=== PATIENT | male | born 1985 | race Caucasian/White ===

== ENCOUNTER 2022-03-09 11:51 | Outpatient (REF) | payer MEDICARE, MEDICAID, SELFPAY ==
[2022-03-11 05:12] LABS: Lyme Abs Screen <0.90 index
== END 2022-03-09 11:52 | disposition home or self-care (01) ==
LOC: HO.HMGCLDS 11:51
PROVIDERS: Visit Provider Nurse Practitioner Family
DX: Q87.2 Congenital malformation syndromes predominantly involving limbs (principal); R42 Dizziness and giddiness
CPT/HCPCS: 36415; 86617; 86618

== ENCOUNTER 2022-03-30 09:45 | Outpatient (RCR) | payer MEDICARE, MEDICAID, SELFPAY ==
--- NOTE | 2022-03-30 13:35 | MHC.PT.EP ---
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 Pt is deemed an appropriate candidate to receive skilled PT in order to address his physical limitations to improve his functional ability. Frequency and Duration: The patient will be seen 2 x / wk x 5 wks. Short Term Goals: initiate HEP. Improve baseline pain to < 5/10; initial: 8/10. Intermediate Goals: I with home program. Pt will report at most 1/4 disturbed night's sleep d/t LBP; initial: Pain prevents him from sleeping at all. Pt will report able to walk required distances though it increases his pain; initial: pain prevents from walking even short distances. Treatment Plan: Modalities to reduce pain, spasms and effusion. Manual therapy to restore motion and function. Therapeutic exercise to improve strength and flexibility. Neuromuscular re-education for posture and balance. Therapeutic activities to return to functional activities of daily living. Electronically signed by: Abhijeet Tenorio PT Please sign and return to therapist. Thank you for your referral.
--- NOTE | 2022-05-02 15:39 | MHC.PT.DC ---
[facility] [place] Office [place] Office [place] Office [address] Kimmy Patel 140 [facility] [phone] F: [phone] F: [phone] F: [phone] F: [phone] Physical Therapy Discharge Report Diagnosis: Lumbago with sciatica Date of Surgery: Date of Evaluation: 03/30/22 Date of Discharge: 05/02/22 Treatments to Date: 1 Cancellations to Date: No Shows to Date: 2 Discharge Status: Visit Non-compliance Discharge Summary: Electronically signed by: Abhijeet Tenorio PT. Please sign and return to therapist. Thank you for your referral.
== END 2022-05-02 15:39 | disposition home or self-care (01) ==
LOC: HO.PTCHIC 09:45
PROVIDERS: PCP Nurse Practitioner Family; Visit Provider Nurse Practitioner Family
DX: M54.40 Lumbago with sciatica, unspecified side (principal); R42 Dizziness and giddiness
CPT/HCPCS: 97110; 97140; 97162

== ENCOUNTER 2022-10-10 14:41 | Outpatient (REF) | payer MEDICARE, MEDICAID, SELFPAY ==
--- NOTE | ~2022-10-10 | XR_ITS ---
EXAMINATION: XR cervical spine 2V CLINICAL INFORMATION: Polyneuropathy COMPARISON: None TECHNIQUE: 4 views of the cervical spine were obtained. FINDINGS: The cervical spine is visualized to the level of C6-C7 on the lateral view. 2 mm of retrolisthesis of C3 on C4. Dextroconvex scoliosis of the cervical spine. Vertebral body heights are maintained. Mild degenerative disc disease at C4-C5 and C5-C6, manifested by loss of disc space height and facet arthropathy.. Lateral masses of C1 are well aligned on C2. Visualized portion of the dens is intact. No prevertebral soft tissue swelling. XR/XR cervical spine 2V IMPRESSION: * Mild spondylosis of the cervical spine, as above detailed. Spondylolisthesis, as above detailed, with dextroconvex curvature of the cervical spine.
== END 2022-10-10 14:42 | disposition home or self-care (01) ==
LOC: HO.HMGCX 14:41
PROVIDERS: PCP Nurse Practitioner Family; Visit Provider Nurse Practitioner Family
DX: G62.9 Polyneuropathy, unspecified (principal)
CPT/HCPCS: 72040

== ENCOUNTER 2022-10-22 12:57 | Emergency (ER) | payer MEDICARE, MEDICAID, SELFPAY ==
--- NOTE | ~2022-10-22 | CT_ITS ---
EXAMINATION: CT CHEST, ABDOMEN AND PELVIS WITHOUT CONTRAST CLINICAL INFORMATION: Severe back pain COMPARISON: None. TECHNIQUE: Multidetector volumetric CT imaging of the chest, abdomen and pelvis was obtained without intravenous contrast. . Coronal and sagittal reformatted images are performed at CT scanner [This CT examination was performed using dose optimization techniques as appropriate, variously including the following: *Automated exposure control *Adjustment of mA and/or kV according to patient size (this includes techniques or standardized protocols for targeted exams where dose is matched to indication/reason for exam; i.e. extremities or head) *Use of iterative reconstruction technique] DLP: 519 mGy-cm. FINDINGS: CT CHEST: Lungs: Subpleural blebs at the medial left lung base. Small linear subpleural scarring at the superior segment of the left lower lobe. No acute airspace opacity. Central bronchial airways are open. No interstitial reticular opacity. Mediastinum: There is no mediastinal mass or significant lymphadenopathy. Heart size is normal. No pericardial effusion. Pleura: There is no pleural effusion. No pleural mass or thickening. Axilla: No lymphadenopathy. CT ABDOMEN AND PELVIS: Liver, Gallbladder and Biliary Tree: The posterior right lobe of liver, segment 7 there are several well-defined hypodense lesions. These have density measurement just above simple fluid, 12 Hounsfield units. Likely hepatic cysts. Largest measuring about 1.5 cm. No suspicious liver lesion. No intrahepatic bile duct dilatation. There is a 0.8 cm calcified stone in the gallbladder. No gallbladder wall thickening or pericholecystic fluid. No calcified stone seen in the bile ducts. Pancreas: No acute change of the pancreas. No mass. No pancreatic duct dilatation. Spleen: Spleen normal in size and contour. No focal lesion. Adrenal Glands: Adrenal glands are normal in size. No focal mass. Kidneys and Ureters: There is a cluster of 3 small calcified stones in the mid lower pole of the left kidney. Largest stone measuring 3 mm. There is no stone in the right kidney. There is no ureteral stone or hydronephrosis. Bladder: Unremarkable. Gastrointestinal Tract: There is no acute abnormality. There is no bowel wall thickening /edema. There is no bowel obstruction. There is a moderate volume of stool in the colon. Multiple punctate radiopacities mixed with stool in the lower pelvis and rectum.. This is consistent with a ingested material. There is hyperdense material scattered in the stomach and proximal small bowel as well. The appendix is nonvisualized . The small bowel loops are unremarkable. The stomach is normal. There is no hiatal hernia. Mesentery: No focal inflammation. No free fluid. No free air. Vaginal calcification low in the right pelvis adjacent to the rectum measuring 3 cm AP. Chronic calcification. There are numerous calcified phleboliths in lower pelvis. Abdominal Wall: No significant hernia is appreciated. Lymph Nodes: Normal. Vascular: Unremarkable. Pelvic Viscera: Unremarkable. 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 There is a left-sided C7 cervical rib. Congenital osseous deformity of the superior endplate of the T2. Fusion anomaly on the left posterior elements of T1. Rudimentary left rib T12. Absent right T12 rib. 4 nonrib-bearing lumbar vertebrae. Sacralization of the L5 vertebrae. Asymmetric fusion anomaly at the symphysis pubis. 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 CT/CT abdomen pelvis wo IV con IMPRESSION: CT CHEST: No acute abnormality. CT ABDOMEN PELVIS: 1. No acute abnormality. 2. Cholelithiasis. No acute change of gallbladder wall or bile duct dilatation. 3. Small nonobstructive stones in the left kidney.
[2022-10-22 13:28] VITALS: BP 136/92; PULSE 79; RESP 18; TEMP 36.7; O2SAT 98; BMI 16.0
--- NOTE | 2022-10-22 13:30 | ED.GENADULT ---
HPI - General Adult General Chief complaint: General Medical <EUSEBIA Perry - Last Filed: 10/22/22 13:40> Stated complaint: body pain <EUSEBIA Perry - Last Filed: 10/22/22 13:40> Time Seen by Provider: 10/22/22 16:13 <EUSEBIA Perry - Last Filed: 10/22/22 13:40> Source: patient and RN notes reviewed <Lucien Keene - Last Filed: 10/22/22 17:13> Mode of arrival: ambulatory <Lucien Keene - Last Filed: 10/22/22 17:13> Limitations: no limitations <Lucien Keene - Last Filed: 10/22/22 17:13> History of Present Illness HPI narrative: 36-year-old male with past medical history significant for Klippel-Trenaunay syndrome, above the knee amputation, tobacco dependence, depression, vertigo, Senokot, depression presents for evaluation back pain. 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 Patient reports that he has been dealing with this since he was born and has had over 26 various surgeries to help correct the issue Patient 1st name is 5 years old he had a left [id number]-fwch amputation due to a traumatic injury of the knee He recently was treated for a new prosthesis which he feels caused more problems. Patient reports from last year he has had increased back pain in ?my whole body is shifted to the side. ? He is not sure why this is report is causing him discomfort. He follows with a prosthesis specialist in [place] but does not have any specialist for his genetic disease. The patient does not follow with orthopedics or chiropractor specialty <Lucien Keene - Last Filed: 10/22/22 17:13> Related Data Home medications: Home Medications Medication Instructions Recorded Confirmed folic acid 1 mg tablet 1 mg PO DAILY 03/07/22 10/10/22 multivitamin-ferrous 1 tab PO DAILY 05/29/22 10/10/22 fumarate-folic acid 18 mg-400 mcg tablet (Centrum Complete) Previous Rx's Medication Instructions Recorded omeprazole 20 mg capsule,delayed 20 mg PO DAILY #90 caps 05/29/22 release left above knee prosthesis #1 ea 06/11/22 gabapentin 100 mg capsule 100 mg PO BID 30 days #60 caps 10/10/22 oxycodone 5 mg tablet 5 mg PO TID PRN pain #14 tabs 10/22/22 <EUSEBIA Perry - Last Filed: 10/22/22 13:40> Allergies/adverse reactions: Allergies Allergy/AdvReac Type Severity Reaction Status Date / Time No Known Allergies Allergy Verified 10/22/22 13:38 <EUSEBIA Perry - Last Filed: 10/22/22 13:40> Review of Systems Constitutional: Constitutional: Reports as per HPI, Denies chills and Denies fatigue <Lucien Keene - Last Filed: 10/22/22 17:13> Cardiovascular: Cardiovascular: Denies chest pain and Denies dyspnea <Lucien Keene - Last Filed: 10/22/22 17:13> Respiratory: Respiratory: Denies cough and Denies dyspnea <Lucien Keene - Last Filed: 10/22/22 17:13> Gastrointestinal: Gastrointestinal: Denies abdominal pain, Denies constipation and Denies vomiting <Lucien Keene - Last Filed: 10/22/22 17:13> Genitourinary: Genitourinary: Denies difficulty urinating and Denies dysuria <Lucien Keene - Last Filed: 10/22/22 17:13> Musculoskeletal: Musculoskeletal: Reports abnormal gait, Reports back pain, Reports myalgias, Reports deformity, Reports arthralgias and Reports limited range of motion <Lucien Keene - Last Filed: 10/22/22 17:13> Neurologic: Reports abnormal gait <Lucien Keene - Last Filed: 10/22/22 17:13> Endocrine: Endocrine: Denies fatigue <Lucien Keene - Last Filed: 10/22/22 17:13> [facility] Past Medical History Medical History: Medical History Degenerative disc disease, cervical <EUSEBIA Perry - Last Filed: 10/22/22 13:40> Surgical History: Surgical History History of amputation below knee History of amputation of finger of left hand <EUSEBIA Perry - Last Filed: 10/22/22 13:40> Family History Family History: Family History Mother Cancer Family history of cancer Mental health disorder Asthma Father High blood pressure Paternal Grandfather Aneurysm Brother Migraine Vertigo <EUSEBIA Perry - Last Filed: 10/22/22 13:40> Social History Social History: Social History Housing: House Alcohol intake: former Patient Tobacco Use Status: Current everyday Tobacco user Tobacco use type: Cigar (Black A Mild) Cigarette Packs Per Day: 1 e-Cigarette/Vaping Use: Never Used Second Hand Smoke Exposure: No Substance Use Type: Marijuana Advance Directives: No Advance Directives Information Provided: No service: No Current occupational status: disabled Cognitive needs: No Hearing needs: No Vision needs: No <EUSEBIA Perry - Last Filed: 10/22/22 13:40> Physical Exam ED Vital Signs: Vital Signs - 24 hr 10/22/22 13:28 Temperature 98.0 F Pulse Rate 79 Respiratory Rate 18 Blood Pressure 136/92 H Pulse Oximetry 98 Oxygen Delivery Method Room Air BMI result Body Mass Index 16.0 <EUSEBIA Perry - Last Filed: 10/22/22 13:40> Vital Signs - 24 hr 10/22/22 13:28 Temperature 98.0 F Pulse Rate 79 Respiratory Rate 18 Blood Pressure 136/92 H Pulse Oximetry 98 Oxygen Delivery Method Room Air BMI result Body Mass Index 16.0 <Lucien Keene - Last Filed: 10/22/22 17:13> Const General: healthy appearing, comfortable, no acute distress, alert and awake <Lucien Keene - Last Filed: 10/22/22 17:13> Nutritional Appearance: well nourished <Lucien Keene - Last Filed: 10/22/22 17:13> Orientation/consciousness: patient oriented x3 <Lucien Keene - Last Filed: 10/22/22 17:13> Eyes Eyelids: Yes eyelids normal <Lucien Keene - Last Filed: 10/22/22 17:13> Conjunctivae: conjunctivae normal <Lucien Last Filed: 10/22/22 17:13> Sclerae: sclerae normal <Lucien Last Filed: 10/22/22 17:13> Corneas: corneas normal <Lucien Last Filed: 10/22/22 17:13> Pupils: Equal, round and reactive pupils present < Last Filed: 10/22/22 17:13> EOM: EOMs intact bilaterally < Last Filed: 10/22/22 17:13> Resp Effort & Inspection: normal respiratory effort, able to speak in complete sentences, no audible wheezes and not labored <Lucien Last Filed: 10/22/22 17:13> GI Palpation (GI): Soft to palpation, nontender, no guarding, no hernias, no masses and no pulsatile masses <Lucien Last Filed: 10/22/22 17:13> Back/Spine/Pelvis Thoracic/Lumbar Spine: No straight leg raise negative bilaterally, kyphosis, thoraco-lumbar ROM limited, Thoracic/lumbar scoliosis, thoracic spinal tenderness and No straight leg raise positive < Last Filed: 10/22/22 17:13> Pelvis: sciatic notch tenderness <Lucien Last Filed: 10/22/22 17:13> Skin General skin exam: no rashes or lesions noted and elasticity normal <Lucien Last Filed: 10/22/22 17:13> Lesions: no lesions < Last Filed: 10/22/22 17:13> Rashes: no rashes < Last Filed: 10/22/22 17:13> Neuro General: patient oriented x3 <Lucien Last Filed: 10/22/22 17:13> Cranial nerves: Yes Equal, round and reactive pupils present <Lucien O Last Filed: 10/22/22 17:13> Extrem General: No normal gait, Yes amputation noted (Left AKA and Left 2nd/3rd fingers) and Yes muscle atrophy <Lucien Keene - Last Filed: 10/22/22 17:13> Course Course Course Narrative: RME - 36 yo male with history of?Klippel Trenaunay syndrome, 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 He has chronic pain but the last months it has been getting worse. He feels like his organs on the left side of his body are being squished by his abnormal bony overgrowth. Will get CT scans and basic labs for further evaluation. <EUSEBIA Perry - Last Filed: 10/22/22 13:40> Medical Decision Making Medical Decision Making [facility] Narrative: This is a 36-year-old male past medical history is for a Congenital disorders KT complaining of pain mostly to his pelvis, back. I was not very familiar with hisdisorder, so I did some research and found that most patients with his disorder present with similar symptoms. 84% of patients have unequal lower extremity length per UpToDate. Is also likely exacerbated by the patient's left twjln-[id number]-locv amputation. His pelvis appears to be shifted to the side which is likely causing kyphoscoliosis. The patient had labs are reassuring without significant abnormalities. CT scan of his chest, abdomen and pelvis without acute findings. The patient will follow up with his primary doctor. We will refer the patient to orthopedics in case any additional treatment options for the patient. The patient may also benefit from seeing a chiropractor as an outpatient which was discussed with him he can follow-up with his primary doctor to try and set this up. <Lucien Keene - Last Filed: 10/22/22 17:13> Differential Diagnosis Differential Diagnoses: The differential diagnosis associated with the presentation includes (Klippel-Trenaunay syndrome, scoliosis, kyphosis, lumbar strain, sciatica) <Lucien Keene - Last Filed: 10/22/22 17:13> Klippel-Trenaunay syndrome <Lucien Keene - Last Filed: 10/22/22 17:13> Lab Data [facility] Lab Attestation statement: I reviewed the patient's lab results. <Lucien Keene - Last Filed: 10/22/22 17:13> Result Diagrams: 02/13/23 13:54 10/22/22 13:54 <EUSEBIA Perry - Last Filed: 10/22/22 13:40> Labs: Lab Results 10/22/22 10/22/22 Range/Units 13:54 13:54 WBC 6.2 (4.8-10.8) X10*3/uL RBC 4.58 L (4.60-5.80) X10*6/uL Hgb 14.7 (14.0-18.0) g/dl Hct 44.4 (42.0-52.0) % MCV 96.9 (80.0-98.0) fL MCH 32.1 (27.0-33.0) pg MCHC 33.1 (31.0-36.0) g/dl RDW 13.9 (11.0-16.0) % Plt Count 201 (160-400) X10*3/uL MPV 9.5 (9.4-12.4) fL Immature Gran % (Auto) 0.3 (0.0-0.4) % Neut % (Auto) 65.3 (45-73) % Lymph % (Auto) 25.0 (20-40) % [place] % (Auto) 5.5 (2-11) % Eos % (Auto) 2.9 (0-4) % Baso % (Auto) 1.0 (0-2) % Lymph # (Auto) 1.6 (1.2-4.9) X10*3/uL [place] # (Auto) 0.3 (0.1-1.2) X10*3/uL Eos # (Auto) 0.2 (0.0-0.4) X10*3/uL Baso # (Auto) 0.1 (0.0-0.2) X10*3/uL Abs Immat Gran (auto) 0.02 (0.00-0.03) X10*3/uL Absolute Neuts (auto) 4.0 (2.0-8.3) x10*3/uL Absolute Nucleated RBC 0.000 (0.0-0.012) X10*3/uL Nucleated RBC % (auto) 0.0 (0.0-0.2) /100WBC Sodium 141 (135-145) mmol/L Potassium 4.5 (3.3-5.1) mmol/L Chloride 105 (96-108) mmol/L Carbon Dioxide 27 (22-29) mmol/L Anion Gap 14 (12-20) BUN 11 (9-16) mg/dL Creatinine 0.82 (0.5-1.4) mg/dL Estim Creat Clear Calc 98.9 Estimated GFR > 60 Random Glucose 82 (60-115) mg/dL Calcium 9.1 (8.4-10.2) mg/dL Magnesium 1.8 (1.6-2.6) mg/dL Total Bilirubin 0.9 (0.0-1.0) mg/dL Direct Bilirubin 0.2 (0.0-0.5) mg/dL AST 15 (5-37) U/L ALT 16 (0-40) U/L Alkaline Phosphatase 78 (39-117) U/L Total Protein 6.4 L (6.5-8.0) g/dL Albumin 4.2 (3.5-5.0) g/dL <EUSEBIA Perry - Last Filed: 10/22/22 13:40> Lab Results 10/22/22 10/22/22 Range/Units 13:54 13:54 WBC 6.2 (4.8-10.8) X10*3/uL RBC 4.58 L (4.60-5.80) X10*6/uL Hgb 14.7 (14.0-18.0) g/dl Hct 44.4 (42.0-52.0) % MCV 96.9 (80.0-98.0) fL MCH 32.1 (27.0-33.0) pg MCHC 33.1 (31.0-36.0) g/dl RDW 13.9 (11.0-16.0) % Plt Count 201 (160-400) X10*3/uL MPV 9.5 (9.4-12.4) fL Immature Gran % (Auto) 0.3 (0.0-0.4) % Neut % (Auto) 65.3 (45-73) % Lymph % (Auto) 25.0 (20-40) % [place] % (Auto) 5.5 (2-11) % Eos % (Auto) 2.9 (0-4) % Baso % (Auto) 1.0 (0-2) % Lymph # (Auto) 1.6 (1.2-4.9) X10*3/uL Harrison # (Auto) 0.3 (0.1-1.2) X10*3/uL Eos # (Auto) 0.2 (0.0-0.4) X10*3/uL Baso # (Auto) 0.1 (0.0-0.2) X10*3/uL Abs Immat Gran (auto) 0.02 (0.00-0.03) X10*3/uL Absolute Neuts (auto) 4.0 (2.0-8.3) x10*3/uL Absolute Nucleated RBC 0.000 (0.0-0.012) X10*3/uL Nucleated RBC % (auto) 0.0 (0.0-0.2) /100WBC Sodium 141 (135-145) mmol/L Potassium 4.5 (3.3-5.1) mmol/L Chloride 105 (96-108) mmol/L Carbon Dioxide 27 (22-29) mmol/L Anion Gap 14 (12-20) BUN 11 (9-16) mg/dL Creatinine 0.82 (0.5-1.4) mg/dL Estim Creat Clear Calc 98.9 Estimated GFR > 60 Random Glucose 82 (60-115) mg/dL Calcium 9.1 (8.4-10.2) mg/dL Magnesium 1.8 (1.6-2.6) mg/dL Total Bilirubin 0.9 (0.0-1.0) mg/dL Direct Bilirubin 0.2 (0.0-0.5) mg/dL AST 15 (5-37) U/L ALT 16 (0-40) U/L Alkaline Phosphatase 78 (39-117) U/L Total Protein 6.4 L (6.5-8.0) g/dL Albumin 4.2 (3.5-5.0) g/dL <Lucien Keene - Last Filed: 10/22/22 17:13> Radiology Impression Discussion of test interpretation with radiology: I have reviewed the radiologist's reading. <Lucien Keene - Last Filed: 10/22/22 17:13> Radiologist Impression: No acute findings of the Chest, abdomen and pelvis per CT analysis <Lucien VilledaAkbar - Last Filed: 10/22/22 17:13> Discharge Plan Discharge Clinical Impression: Klippel Trenaunay syndrome <EUSEBIA Perry - Last Filed: 10/22/22 13:40> Patient Disposition: Home, Self-Care <EUSEBIA Perry - Last Filed: 10/22/22 13:40> Additional Instructions: Your blood work in the emergency room was reassuring. Your CT scan of her chest and abdomen did not show any acute findings. Unfortunately, most patients with her disorder have chronic back and pelvis pain related to abnormal bone growth and connective tissue growth. He may follow up with Orthopedics to see if any additional treatment options for you. It also may be a good idea to try to see a chiropractor as outpatient. In the meantime, and give you a short course of oxycodone to help with your acute pain at night. You should not drive or drink alcohol while taking this medication. <EUSEBIA Perry - Last Filed: 10/22/22 13:40> Prescriptions: New oxycodone 5 mg tablet 5 mg PO TID PRN (Reason: pain) Qty: 14 0RF Rx Instructions: Partial Fill upon patient request. No Action (DME) left above knee prosthesis See Rx Instructions .Route .MEDSUPPLY Qty: 1 0RF Rx Instructions: wear daily for AKA gabapentin 100 mg capsule 100 mg PO BID 30 Days Qty: 60 0RF Centrum Complete 18-400 mg-mcg tablet 1 tab PO DAILY omeprazole 20 mg capsule,delayed release(DR/EC) 20 mg PO DAILY Qty: 90 0RF folic acid 1 mg tablet 1 mg PO DAILY <EUSEBIA Perry - Last Filed: 10/22/22 13:40> Referrals: Matthew Montano MD [Physician] - <EUSEBIA Perry - Last Filed: 10/22/22 13:40>
[2022-10-22 14:00] LABS: Basophils Absolute Auto 0.1 X10*3/uL (0.0-0.2); Eosinophils Absolute Auto 0.2 X10*3/uL (0.0-0.4); Eosinophils Percent Auto 2.9 % (0-4); Hematocrit 44.4 % (42.0-52.0); Hemoglobin 14.7 g/dl (14.0-18.0); Imm Gran Abs Auto 0.02 X10*3/uL (0.00-0.03); Imm Gran Pct Auto 0.3 % (0.0-0.4); Lymphocytes Absolute Auto 1.6 X10*3/uL (1.2-4.9); MANUAL DIFF FLAG NO; Mean Corpuscular HGB Conc 33.1 g/dl (31.0-36.0); Mean Corpuscular Hemoglobin 32.1 pg (27.0-33.0); Mean Corpuscular Volume 96.9 fL (80.0-98.0); Mean Platelet Volume 9.5 fL (9.4-12.4); Monocytes Absolute Auto 0.3 X10*3/uL (0.1-1.2); Monocytes Percent Auto 5.5 % (2-11); Neutrophils Percent Auto 65.3 % (45-73); Platelet Count 201 X10*3/uL (160-400); Red Blood Count 4.58 X10*6/uL (4.60-5.80); Red Cell Distribution Width 13.9 % (11.0-16.0); White Blood Count 6.2 X10*3/uL (4.8-10.8)
[2022-10-22 14:31] LABS: Alanine Aminotransferase 16 U/L (0-40); Albumin Level 4.2 g/dL (3.5-5.0); Alkaline Phosphatase 78 U/L (39-117); Anion Gap 14 (12-20); Aspartate Amino Transferase 15 U/L (5-37); Bilirubin Direct 0.2 mg/dL (0.0-0.5); Bilirubin Total 0.9 mg/dL (0.0-1.0); Blood Urea Nitrogen 11 mg/dL (9-16); Calcium 9.1 mg/dL (8.4-10.2); Carbon Dioxide 27 mmol/L (22-29); Chloride 105 mmol/L (96-108); Creatinine Clr Calc Pharmacy 98.9; Estimated Glomerular Filt Rate > 60; Glucose Random 82 mg/dL (60-115); Magnesium 1.8 mg/dL (1.6-2.6); Potassium 4.5 mmol/L (3.3-5.1); Sodium 141 mmol/L (135-145); Total Protein 6.4 g/dL (6.5-8.0)
--- NOTE | 2022-10-22 16:54 | ED_ITS ---
HPI - General Adult General Chief complaint: General Medical Stated complaint: body pain Time Seen by Provider: 10/22/22 16:13 Related Data Home Medications Medication Instructions Recorded Confirmed folic acid 1 mg tablet 1 mg PO DAILY 03/07/22 10/10/22 multivitamin-ferrous 1 tab PO DAILY 05/29/22 10/10/22 fumarate-folic acid 18 mg-400 mcg tablet (Centrum Complete) Previous Rx's Medication Instructions Recorded omeprazole 20 mg capsule,delayed 20 mg PO DAILY #90 caps 05/29/22 release left above knee prosthesis #1 ea 06/11/22 gabapentin 100 mg capsule 100 mg PO BID 30 days #60 caps 10/10/22 oxycodone 5 mg tablet 5 mg PO TID PRN pain #14 tabs 10/22/22 Allergies Allergy/AdvReac Type Severity Reaction Status Date / Time No Known Allergies Allergy Verified 10/22/22 13:38 [facility] Past Medical History Medical History Degenerative disc disease, cervical Surgical History History of amputation below knee History of amputation of finger of left hand Family History Family History Mother Cancer Family history of cancer Mental health disorder Asthma Father High blood pressure Paternal Grandfather Aneurysm Brother Migraine Vertigo Social History Social History Housing: House Alcohol intake: former Patient Tobacco Use Status: Current everyday Tobacco user Tobacco use type: Cigar (Black A Mild) Cigarette Packs Per Day: 1 e-Cigarette/Vaping Use: Never Used Second Hand Smoke Exposure: No Substance Use Type: Marijuana Advance Directives: No Advance Directives Information Provided: No service: No Current occupational status: disabled Cognitive needs: No Hearing needs: No Vision needs: No Physical Exam ED Vital Signs: Vital Signs - 24 hr 10/22/22 13:28 Temperature 98.0 F Pulse Rate 79 Respiratory Rate 18 Blood Pressure 136/92 H Pulse Oximetry 98 Oxygen Delivery Method Room Air BMI result Body Mass Index 16.0 Medical Decision Making Lab Data 10/22/22 13:54 10/22/22 13:54 Labs: Lab Results 10/22/22 10/22/22 Range/Units 13:54 13:54 WBC 6.2 (4.8-10.8) X10*3/uL RBC 4.58 L (4.60-5.80) X10*6/uL Hgb 14.7 (14.0-18.0) g/dl Hct 44.4 (42.0-52.0) % MCV 96.9 (80.0-98.0) fL MCH 32.1 (27.0-33.0) pg MCHC 33.1 (31.0-36.0) g/dl RDW 13.9 (11.0-16.0) % Plt Count 201 (160-400) X10*3/uL MPV 9.5 (9.4-12.4) fL Immature Gran % (Auto) 0.3 (0.0-0.4) % Neut % (Auto) 65.3 (45-73) % Lymph % (Auto) 25.0 (20-40) % [place] % (Auto) 5.5 (2-11) % Eos % (Auto) 2.9 (0-4) % Baso % (Auto) 1.0 (0-2) % Lymph # (Auto) 1.6 (1.2-4.9) X10*3/uL [place] # (Auto) 0.3 (0.1-1.2) X10*3/uL Eos # (Auto) 0.2 (0.0-0.4) X10*3/uL Baso # (Auto) 0.1 (0.0-0.2) X10*3/uL Abs Immat Gran (auto) 0.02 (0.00-0.03) X10*3/uL Absolute Neuts (auto) 4.0 (2.0-8.3) x10*3/uL Absolute Nucleated RBC 0.000 (0.0-0.012) X10*3/uL Nucleated RBC % (auto) 0.0 (0.0-0.2) /100WBC Sodium 141 (135-145) mmol/L Potassium 4.5 (3.3-5.1) mmol/L Chloride 105 (96-108) mmol/L Carbon Dioxide 27 (22-29) mmol/L Anion Gap 14 (12-20) BUN 11 (9-16) mg/dL Creatinine 0.82 (0.5-1.4) mg/dL Estim Creat Clear Calc 98.9 Estimated GFR > 60 Random Glucose 82 (60-115) mg/dL Calcium 9.1 (8.4-10.2) mg/dL Magnesium 1.8 (1.6-2.6) mg/dL Total Bilirubin 0.9 (0.0-1.0) mg/dL Direct Bilirubin 0.2 (0.0-0.5) mg/dL AST 15 (5-37) U/L ALT 16 (0-40) U/L Alkaline Phosphatase 78 (39-117) U/L Total Protein 6.4 L (6.5-8.0) g/dL Albumin 4.2 (3.5-5.0) g/dL Discharge Plan Discharge Clinical Impression: Klippel Trenaunay syndrome Patient Disposition: Home, Self-Care Additional Instructions: Your blood work in the emergency room was reassuring. Your CT scan of her chest and abdomen did not show any acute findings. Unfortunately, most patients with her disorder have chronic back and pelvis pain related to abnormal bone growth and connective tissue growth. He may follow up with Orthopedics to see if any additional treatment options for you. It also may be a good idea to try to see a chiropractor as outpatient. In the meantime, and give you a short course of oxycodone to help with your acute pain at night. You should not drive or drink alcohol while taking this medication. Prescriptions: New oxycodone 5 mg tablet 5 mg PO TID PRN (Reason: pain) Qty: 14 0RF Rx Instructions: Partial Fill upon patient request. No Action (DME) left above knee prosthesis See Rx Instructions .Route .MEDSUPPLY Qty: 1 0RF Rx Instructions: wear daily for AKA gabapentin 100 mg capsule 100 mg PO BID 30 Days Qty: 60 0RF Centrum Complete 18-400 mg-mcg tablet 1 tab PO DAILY omeprazole 20 mg capsule,delayed release(DR/EC) 20 mg PO DAILY Qty: 90 0RF folic acid 1 mg tablet 1 mg PO DAILY Referrals: Matthew Montano MD [Physician] - Stand Alone Forms: Work/School Release Interventions: ED Discharge Assessment Last Done: 10/22/22 17:27 Discharge Date/Time: 10/22/22 17:28
== END 2022-10-22 17:28 | disposition home or self-care (01) ==
PROVIDERS: Physician Assistant; Emergency Provider Emergency Medicine; PCP Nurse Practitioner Family
DX: M79.10 Myalgia, unspecified site (principal); Q87.2 Congenital malformation syndromes predominantly involving limbs; F17.200 Nicotine dependence, unspecified, uncomplicated; F12.90 Cannabis use, unspecified, uncomplicated; Z89.612 Acquired absence of left leg above knee; Z89.022 Acquired absence of left finger(s); Z86.718 Personal history of other venous thrombosis and embolism
CPT/HCPCS: 36415; 71250; 74176; 80048; 80076; 83735; 85025; 99282; 99284

== ENCOUNTER 2023-01-09 11:56 | Outpatient (REF) | payer MEDICARE, MEDICAID, SELFPAY ==
--- NOTE | 2023-01-09 08:30 | EMG_ITS ---
Please see scanned EMG / Nerve Conduction Report. MTDD
== END 2023-01-09 11:57 | disposition home or self-care (01) ==
LOC: HO.NEURO 11:56
PROVIDERS: PCP Nurse Practitioner Family; Visit Provider Nurse Practitioner Family
DX: G12.29 Other motor neuron disease (principal)
CPT/HCPCS: 95885; 95913

== ENCOUNTER 2023-01-13 18:32 | Emergency (ER) | payer MEDICARE, MEDICAID, SELFPAY ==
--- NOTE | ~2023-01-13 | US_ITS ---
EXAMINATION: US VENOUS ULTRASOUND WITH DOPPLER LOWER EXTREMITY, LEFT CLINICAL INFORMATION: Patient is amputation of the leg at the knee. Leg pain. COMPARISON: None available. TECHNIQUE: Ultrasound of the deep veins is performed from the hip to the calf with compression sonography and color and pulse Doppler assessment. Spectral analysis with color-flow imaging is performed. FINDINGS: There is acute occlusive thrombus involving the greater saphenous vein. Thrombus is 1.2 cm from the superficial femoral vein junction in the thrombus extends down the thigh. No thrombus present within the superficial femoral vein or the deep femoral vein or common femoral vein. US/US venous duplex LE LT IMPRESSION: Acute occlusive thrombus in the greater saphenous vein. No evidence of deep vein thrombosis. This critical result was discussed with EUSEBIA 01/13/2023, 9:20 PM and it was ascertained that the content and urgency of the report was understood at the time of direct communication.
[2023-01-13 18:37] VITALS: BP 132/74; PULSE 99; RESP 18; TEMP 36.8; O2SAT 97; BMI 15.4
--- NOTE | 2023-01-13 18:37 | ED_ITS ---
HPI - Extremity Injury (Lower) General Chief Complaint: Extremity Injury, Lower <EUSEBIA Masters Last Filed: 01/13/23 18:45> Stated Complaint: vein in amputated leg burst? 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 Patient states history of blood clots in the past. Patient denies any recent trauma to lower extremities. Patient states having sudden left thigh pain and can see his vein on thigh. patient has left BKA <EUSEBIA Schroeder Last Filed: 01/14/23 00:06> Related Data Home Medications: Home Medications Medication Instructions Recorded Confirmed folic acid 1 mg tablet 1 mg PO DAILY 03/07/22 10/10/22 multivitamin-ferrous 1 tab PO DAILY 05/29/22 10/10/22 fumarate-folic acid 18 mg-400 mcg tablet (Centrum Complete) Previous Rx's Medication Instructions Recorded omeprazole 20 mg capsule,delayed 20 mg PO DAILY #90 caps 05/29/22 release left above knee prosthesis #1 ea 06/11/22 gabapentin 100 mg capsule 100 mg PO BID 30 days #60 caps 10/10/22 oxycodone 5 mg tablet 5 mg PO TID PRN pain #14 tabs 10/22/22 apixaban 5 mg (74 tabs) tablets in 5 mg PO BID #74 ea 01/13/23 a dose pack (Eliquis DVT-PE Treat 30D Start) oxycodone 5 mg capsule 5 mg PO TID PRN pain 3 days #9 caps 01/13/23 <EUSEBIA Masters Last Filed: 01/13/23 18:45> Allergies/Adverse Reactions: Allergies Allergy/AdvReac Type Severity Reaction Status Date / Time No Known Allergies Allergy Verified 01/13/23 18:37 <EUSEBIA Masters - Last Filed: 01/13/23 18:45> Review of Systems Review of Systems: Left thigh pain <EUSEBIA Schroeder - Last Filed: 01/14/23 00:06> Yes all other systems are reviewed and are negative <EUSEBIA Schroeder - Last Filed: 01/14/23 00:06> [facility] Past Medical History Medical History: Medical History (Updated 01/13/23 @ 23:38 by EUSEBIA Schroeder) Degenerative disc disease, cervical <EUSEBIA Masters - Last Filed: 01/13/23 18:45> Surgical History: Surgical History History of amputation below knee History of amputation of finger of left hand <EUSEBIA Masters - Last Filed: 01/13/23 18:45> Family History Family History: Family History Mother Cancer Family history of cancer Mental health disorder Asthma Father High blood pressure Paternal Grandfather Aneurysm Brother Migraine Vertigo <EUSEBIA Masters - Last Filed: 01/13/23 18:45> Social History Social History: Social History Housing: House Alcohol intake: former Patient Tobacco Use Status: Current everyday Tobacco user Tobacco use type: Cigar (Black A Mild) Cigarette Packs Per Day: 1 Smoked in Last 30 Days: Yes e-Cigarette/Vaping Use: Never Used Second Hand Smoke Exposure: No Use of substances other than those prescribed or required for medical reasons: No Substance Use Type: Marijuana Advance Directives: No Advance Directives Information Provided: No service: No Current occupational status: disabled Cognitive needs: No Hearing needs: No Vision needs: No <EUSEBIA Masters - Last Filed: 01/13/23 18:45> Physical Exam Vital Signs: Vital Signs: Last Vital Signs Temp 98.2 F 01/13/23 18:37 Pulse 84 01/13/23 19:50 Resp 16 01/13/23 19:50 BP 130/47 L 01/13/23 19:50 Pulse Ox 97 01/13/23 19:50 O2 Del Method Room Air 01/13/23 19:50 BMI result Body Mass Index 15.4 <EUSEBIA Masters Last Filed: 01/13/23 18:45> Vital Signs: Last Vital Signs Temp 98.2 F 01/13/23 18:37 Pulse 84 01/13/23 19:50 Resp 16 01/13/23 19:50 BP 130/47 L 01/13/23 19:50 Pulse Ox 97 01/13/23 19:50 O2 Del Method Room Air 01/13/23 19:50 BMI result Body Mass Index 15.4 <EUSEBIA Schroeder Last Filed: 01/14/23 00:06> Const: General: cooperative, healthy appearing, comfortable, no acute distress, well developed, alert, awake and Physically active <EUSEBIA Schroeder Last Filed: 01/14/23 00:06> Orientation/consciousness: oriented to person, oriented to place, oriented to time and patient oriented x3 <EUSEBIA Schroeder Last Filed: 01/14/23 00:06> HEENT: Head: Yes normal to inspection, Yes No palpable skull fracture present, Yes normocephalic, Yes atraumatic and No abrasion <EUSEBIA Schroeder Last Filed: 01/14/23 00:06> Eyes: General: appearance normal, both eyes and all related structures <EUSEBIA Schroeder Last Filed: 01/14/23 00:06> Neck: Neck: Yes normal visual inspection, Yes full ROM, Yes no lymphadenopathy, Yes no meningeal signs, Yes trachea midline, Yes supple, No anterior neck swelling and No tender <EUSEBIA Schroeder Last Filed: 01/14/23 00:06> Chest: Chest palpation & inspection: normal inspection of the chest and normal palpation of entire chest wall <EUSEBIA Schroeder Last Filed: 01/14/23 00:06> Resp: Effort & Inspection: normal respiratory effort and able to speak in complete sentences <EUSEBIA Schroeder Last Filed: 01/14/23 00:06> Cardio: Jugular venous distension: no JVD <EUSEBIA Schroeder Last Filed: 01/14/23 00:06> Heart sounds: S1 normal heart sound present and S2 normal heart sound present <EUSEBIA Schroeder Filed: 01/14/23 00:06> GI: Inspection: Yes normal to inspection and No abdominal wall ecchymosis <EUSEBIA Schroeder Crystal Last Filed: 01/14/23 00:06> Palpation (GI): Soft to palpation, not firm, nontender, no guarding and not rigid <EUSEBIA Schroeder Crystal Last Filed: 01/14/23 00:06> : General: No CVA tenderness and Yes no CVA tenderness <EUSEBIA Schroeder Crystal Filed: 01/14/23 00:06> Back/Spine/Pelvis: Back: no CVA tenderness, No CVA tenderness and No back tenderness <EUSEBIA Schroeder Crystal Filed: 01/14/23 00:06> Skin: General skin exam: no rashes or lesions noted and elasticity normal <EUSEBIA Schroeder Last Filed: 01/14/23 00:06> Neuro: General: oriented to person, oriented to place, oriented to time, patient oriented x3, gait normal (gait is at baseline. Uses prosthetic.), tone normal, moves all extremities, Normal light touch and pain sensation, no meningeal signs, no focal motor deficits and CN's II-XI intact bilaterally <EUSEBIA Schroeder Crystal Last Filed: 01/14/23 00:06> Extrem: Other: Positive for left thigh palpable tender vein on medial thight <EUSEBIA Schroeder Last Filed: 01/14/23 00:06> General: Yes normal to inspection and Yes full ROM <EUSEBIA Schroeder Last Filed: 01/14/23 00:06> Psych: Appearance: grossly normal, well kempt and not disheveled <EUSEBIA Schroeder Filed: 01/14/23 00:06> Course Course Course Narrative: RME: 37yo m w/PMHx Klippel-Trenaunay syndrome, above the knee amputation, tobacco dependence, depression, vertigo, depression, c/o LLE pain and feeling 'a vein pop while out kayaking [employer]. Reports increasing pain, difficulty getting prosthetic on lower extremity due to swelling. + palpable venous cord to LUE. Venous duplex ultrasound ordered Full HPI, ROS and PE to be performed by primary ED provider. <EUSEBIA Masters - Last Filed: 01/13/23 18:45> Reevaluation(s) Reevaluation #1: Ultrasound shows superficial thrombus and great saphenous vein. Case discussed with supervising attending recommend treatment with anticoagulation and follow-up with vascular surgeon and repeat ultrasound <EUSEBIA Schroeder - Last Filed: 01/14/23 00:06> Time: 23:33 <EUSEBIA Schroeder - Last Filed: 01/14/23 00:06> Medications Administered Discontinued Medications Generic Name Dose Route Start Last Admin Trade Name Freq PRN Reason Stop Dose Admin Ibuprofen 800 mg 01/13/23 20:58 01/13/23 22:08 Ibuprofen 800 Mg Tablet PO 01/13/23 20:59 800 mg ONCE ONE Administration Oxycodone HCl 5 mg 01/13/23 21:59 01/13/23 22:08 Oxycodone Hcl Immed Release 5 Mg Tablet PO 01/13/23 22:00 5 mg ONCE ONE Administration <EUSEBIA Masters - Last Filed: 01/13/23 18:45> Medications Administered Discontinued Medications Generic Name Dose Route Start Last Admin Trade Name Freq PRN Reason Stop Dose Admin Ibuprofen 800 mg 01/13/23 20:58 01/13/23 22:08 Ibuprofen 800 Mg Tablet PO 01/13/23 20:59 800 mg ONCE ONE Administration Oxycodone HCl 5 mg 01/13/23 21:59 01/13/23 22:08 Oxycodone Hcl Immed Release 5 Mg Tablet PO 01/13/23 22:00 5 mg ONCE ONE Administration <EUSEBIA Schroeder - Last Filed: 01/14/23 00:06> Medical Decision Making Medical Decision Making MDM Narrative: 37-year-old male presents to the ED for left thigh pain. Ultrasound shows superficial thrombus the great saphenous vein. Patient will be given ant icoagulant blood thinners. Patient denies any chest pain or shortness of breath. Patient informed to follow-up with vascular surgeon and have repeat ultrasound. <EUSEBIA Schroeder - Last Filed: 01/14/23 00:06> Differential Diagnosis Differential Diagnoses: The differential diagnosis associated with the presentation includes (DVT, cellulitis, superficial thrombophlebitis, fracture, rhabdomyolysis, compartment syndrome) <EUSEBIA Schroeder - Last Filed: 01/14/23 00:06> Admission/Observation Consideration of admission/observation: Escalation of care including admission/observation considered <EUSEBIA Schroeder - Last Filed: 01/14/23 00:06> Lab Data MDM Lab Attestation statement: I reviewed the patient's lab results. <EUSEBIA Schroeder - Last Filed: 01/14/23 00:06> Result Diagrams: 01/13/23 22:11 01/13/23 22:11 <EUSEBIA Masters - Last Filed: 01/13/23 18:45> Labs: Lab Results 01/13/23 01/13/23 01/13/23 Range/Units 22:11 22:11 22:11 WBC 8.6 (4.8-10.8) X10*3/uL RBC 4.01 L (4.60-5.80) X10*6/uL Hgb 13.1 L (14.0-18.0) g/dl Hct 39.4 L (42.0-52.0) % MCV 98.3 H (80.0-98.0) fL MCH 32.7 (27.0-33.0) pg MCHC 33.2 (31.0-36.0) g/dl RDW 13.3 (11.0-16.0) % Plt Count 173 (160-400) X10*3/uL MPV 9.9 (9.4-12.4) fL Immature Gran % (Auto) 0.2 (0.0-0.4) % Neut % (Auto) 68.1 (45-73) % Lymph % (Auto) 24.1 (20-40) % Mellette % (Auto) 5.5 (2-11) % Eos % (Auto) 1.4 (0-4) % Baso % (Auto) 0.7 (0-2) % Lymph # (Auto) 2.1 (1.2-4.9) X10*3/uL Mellette # (Auto) 0.5 (0.1-1.2) X10*3/uL Eos # (Auto) 0.1 (0.0-0.4) X10*3/uL Baso # (Auto) 0.1 (0.0-0.2) X10*3/uL Abs Immat Gran (auto) 0.02 (0.00-0.03) X10*3/uL Absolute Neuts (auto) 5.9 (2.0-8.3) x10*3/uL Absolute Nucleated RBC 0.000 (0.0-0.012) X10*3/uL Nucleated RBC % (auto) 0.0 (0.0-0.2) /100WBC PT 11.5 (10.0-13.1) SEC INR 1.0 (0.9-1.1) APTT 32.8 (26.0-36.4) SEC Sodium 140 (135-145) mmol/L Potassium 4.1 (3.3-5.1) mmol/L Chloride 104 (96-108) mmol/L Carbon Dioxide 27 (22-29) mmol/L Anion Gap 13 (12-20) BUN 15 (9-16) mg/dL Creatinine 0.85 (0.5-1.4) mg/dL Estim Creat Clear Calc 90.5 Estimated GFR > 60 Random Glucose 110 (60-115) mg/dL Calcium 9.0 (8.4-10.2) mg/dL Total Bilirubin 0.8 (0.0-1.0) mg/dL AST 16 (5-37) U/L ALT 17 (0-40) U/L Alkaline Phosphatase 67 (39-117) U/L Total Protein 6.0 L (6.5-8.0) g/dL Albumin 4.0 (3.5-5.0) g/dL <EUSEBIA Masters - Last Filed: 01/13/23 18:45> Lab Results 01/13/23 01/13/23 01/13/23 Range/Units 22:11 22:11 22:11 WBC 8.6 (4.8-10.8) X10*3/uL RBC 4.01 L (4.60-5.80) X10*6/uL Hgb 13.1 L (14.0-18.0) g/dl Hct 39.4 L (42.0-52.0) % MCV 98.3 H (80.0-98.0) fL MCH 32.7 (27.0-33.0) pg MCHC 33.2 (31.0-36.0) g/dl RDW 13.3 (11.0-16.0) % Plt Count 173 (160-400) X10*3/uL MPV 9.9 (9.4-12.4) fL Immature Gran % (Auto) 0.2 (0.0-0.4) % Neut % (Auto) 68.1 (45-73) % Lymph % (Auto) 24.1 (20-40) % Mellette % (Auto) 5.5 (2-11) % Eos % (Auto) 1.4 (0-4) % Baso % (Auto) 0.7 (0-2) % Lymph # (Auto) 2.1 (1.2-4.9) X10*3/uL Mellette # (Auto) 0.5 (0.1-1.2) X10*3/uL Eos # (Auto) 0.1 (0.0-0.4) X10*3/uL Baso # (Auto) 0.1 (0.0-0.2) X10*3/uL Abs Immat Gran (auto) 0.02 (0.00-0.03) X10*3/uL Absolute Neuts (auto) 5.9 (2.0-8.3) x10*3/uL Absolute Nucleated RBC 0.000 (0.0-0.012) X10*3/uL Nucleated RBC % (auto) 0.0 (0.0-0.2) /100WBC PT 11.5 (10.0-13.1) SEC INR 1.0 (0.9-1.1) APTT 32.8 (26.0-36.4) SEC Sodium 140 (135-145) mmol/L Potassium 4.1 (3.3-5.1) mmol/L Chloride 104 (96-108) mmol/L Carbon Dioxide 27 (22-29) mmol/L Anion Gap 13 (12-20) BUN 15 (9-16) mg/dL Creatinine 0.85 (0.5-1.4) mg/dL Estim Creat Clear Calc 90.5 Estimated GFR > 60 Random Glucose 110 (60-115) mg/dL Calcium 9.0 (8.4-10.2) mg/dL Total Bilirubin 0.8 (0.0-1.0) mg/dL AST 16 (5-37) U/L ALT 17 (0-40) U/L Alkaline Phosphatase 67 (39-117) U/L Total Protein 6.0 L (6.5-8.0) g/dL Albumin 4.0 (3.5-5.0) g/dL <EUSEBIA Schroeder - Last Filed: 01/14/23 00:06> Independent Interpretation I performed an independent interpretation of an: Ultrasound <EUSEBIA Schroeder - Last Filed: 01/14/23 00:06> Radiology Impression Discussion of test interpretation with radiology: I have reviewed the radiologist's reading. <EUSEBIA Schroeder - Last Filed: 01/14/23 00:06> Prescription Management I considered prescription management with: Other (eliquis) <EUSEBIA Schroeder - Last Filed: 01/14/23 00:06> Discharge Plan Discharge Clinical Impression: Acute superficial venous thrombosis of left lower extremity <EUSEBIA Masters - Last Filed: 01/13/23 18:45> Patient Disposition: Home, Self-Care <EUSEBIA Masters - Last Filed: 01/13/23 18:45> Instructions: Superficial Thrombophlebitis (ED) <EUSEBIA Masters - Last Filed: 01/13/23 18:45> Additional Instructions: Ultrasound reading shows occlusive thrombus in great saphenous vein. You mamadou be discharged with anticoagulants. please follow up with our Vascular Surgeon Dr. Weiss for re-evaluation and repeat ultrasound. Return to the ED immediately for any chest pain, shortness of breath, worsening pain in extremity, passing out, redness, fever, chills, or any other concerning symptoms. <EUSEBIA Masters - Last Filed: 01/13/23 18:45> Prescriptions: New Eliquis DVT-PE Treat 30D Start 5 mg (74 tabs) tablets,dose pack 5 mg PO BID Qty: 74 0RF Rx Instructions: 10 mg twice daily for 7 days followed by 5 mg twice daily. oxycodone 5 mg capsule 5 mg PO TID PRN (Reason: pain) 3 Days Qty: 9 0RF Rx Instructions: Partial Fill upon patient request. No Action (DME) left above knee prosthesis See Rx Instructions .Route .MEDSUPPLY Qty: 1 0RF Rx Instructions: wear daily for AKA oxycodone 5 mg tablet 5 mg PO TID PRN (Reason: pain) Qty: 14 0RF Rx Instructions: Partial Fill upon patient request. gabapentin 100 mg capsule 100 mg PO BID 30 Days Qty: 60 0RF Centrum Complete 18-400 mg-mcg tablet 1 tab PO DAILY omeprazole 20 mg capsule,delayed release(DR/EC) 20 mg PO DAILY Qty: 90 0RF folic acid 1 mg tablet 1 mg PO DAILY <EUSEBIA Masters - Last Filed: 01/13/23 18:45> Referrals: Gabriel Weiss MD [Physician] - (Superficial thrombus in Great Saphenous Vein) <EUSEBIA Masters - Last Filed: 01/13/23 18:45> Print Language: Polish <EUSEBIA Masters - Last Filed: 01/13/23 18:45>
--- NOTE | 2023-01-13 19:21 | PC.NURSE ---
pt reports to ED after feeling a pop and sudden severe pain in left thigh along a vein extending up to groin. Vein is enlarged and painful. Pt has above knee amp on left side.
[2023-01-13 19:50] VITALS: BP 130/47; PULSE 84; RESP 16; O2SAT 97
[2023-01-13] MEDS: Ibuprofen 800 MG TABLET PO (22:08)
[2023-01-13] MEDS: oxyCODONE HCl Immed Release 5 MG TABLET PO (22:08)
--- NOTE | 2023-01-13 22:09 | PC.NURSE ---
at bedside, medicated per NOV.
--- NOTE | 2023-01-13 22:14 | PC.NURSE ---
MD at bedside discussing results and plan of care. Pt medicated per NOV for 10/10 pain. Labs obtained, awaiting results.
[2023-01-13 22:26] LABS: MANUAL DIFF FLAG NO
[2023-01-13 22:27] LABS: Basophils Absolute Auto 0.1 X10*3/uL (0.0-0.2); Basophils Percent Auto 0.7 % (0-2); Eosinophils Absolute Auto 0.1 X10*3/uL (0.0-0.4); Eosinophils Percent Auto 1.4 % (0-4); Hematocrit 39.4 % (42.0-52.0); Hemoglobin 13.1 g/dl (14.0-18.0); Imm Gran Abs Auto 0.02 X10*3/uL (0.00-0.03); Imm Gran Pct Auto 0.2 % (0.0-0.4); Lymphocytes Absolute Auto 2.1 X10*3/uL (1.2-4.9); Lymphocytes Percent Auto 24.1 % (20-40); Mean Corpuscular HGB Conc 33.2 g/dl (31.0-36.0); Mean Corpuscular Hemoglobin 32.7 pg (27.0-33.0); Mean Corpuscular Volume 98.3 fL (80.0-98.0); Mean Platelet Volume 9.9 fL (9.4-12.4); Monocytes Absolute Auto 0.5 X10*3/uL (0.1-1.2); Monocytes Percent Auto 5.5 % (2-11); Neutrophils Absolute Auto 5.9 x10*3/uL (2.0-8.3); Neutrophils Percent Auto 68.1 % (45-73); Platelet Count 173 X10*3/uL (160-400); Red Blood Count 4.01 X10*6/uL (4.60-5.80); Red Cell Distribution Width 13.3 % (11.0-16.0); White Blood Count 8.6 X10*3/uL (4.8-10.8)
[2023-01-13 22:34] LABS: Prothrombin Time 11.5 SEC (10.0-13.1)
[2023-01-13 22:37] LABS: Partial Thromboplastin Time 32.8 SEC (26.0-36.4)
[2023-01-13 22:49] LABS: Alanine Aminotransferase 17 U/L (0-40); Alkaline Phosphatase 67 U/L (39-117); Anion Gap 13 (12-20); Aspartate Amino Transferase 16 U/L (5-37); Bilirubin Total 0.8 mg/dL (0.0-1.0); Blood Urea Nitrogen 15 mg/dL (9-16); Carbon Dioxide 27 mmol/L (22-29); Chloride 104 mmol/L (96-108); Creatinine Clr Calc Pharmacy 90.5; Estimated Glomerular Filt Rate > 60; Glucose Random 110 mg/dL (60-115); Potassium 4.1 mmol/L (3.3-5.1); Sodium 140 mmol/L (135-145)
== END 2023-01-14 00:07 | disposition home or self-care (01) ==
PROVIDERS: Physician Assistant; Emergency Provider Emergency Medicine Emergency Medical Services; PCP Nurse Practitioner Family
DX: I82.812 Embolism and thrombosis of superficial veins of left lower extremity (principal); R60.0 Localized edema; Q87.2 Congenital malformation syndromes predominantly involving limbs; F17.210 Nicotine dependence, cigarettes, uncomplicated; Z71.6 Tobacco abuse counseling; Z79.899 Other long term (current) drug therapy
CPT/HCPCS: 36415; 80053; 85025; 85610; 85730; 93971; 99284

== ENCOUNTER → 2023-01-17 09:23 | Outpatient (BNVA) | payer MEDICARE, MEDICAID, SELFPAY | PROVIDERS: PCP Nurse Practitioner Family; Visit Provider Surgery Vascular Surgery | DX: M79.605 Pain in left leg (principal); Q87.2 Congenital malformation syndromes predominantly involving limbs; I80.02 Phlebitis and thrombophlebitis of superficial vessels of left lower extremity; Z89.612 Acquired absence of left leg above knee | CPT/HCPCS: 99202 ==

== ENCOUNTER 2023-01-28 14:15 | Outpatient (REF) | payer MEDICARE, MEDICAID, SELFPAY ==
--- NOTE | ~2023-01-28 | US_ITS ---
EXAMINATION: US VENOUS ULTRASOUND WITH DOPPLER LOWER EXTREMITY, LEFT CLINICAL INFORMATION: Pain. Follow-up DVT. COMPARISON: Previous exam 01/13/2023 TECHNIQUE: Ultrasound of the deep veins is performed from the hip to the calf with compression sonography and color and pulse Doppler assessment. Spectral analysis with color-flow imaging is performed. FINDINGS: Post left leg amputation at the knee. The left common femoral, superficial femoral and profunda femoral veins are patent. No DVT is seen. There is still occlusive superficial thrombophlebitis of the left greater saphenous vein US/US venous duplex LE LT IMPRESSION: No DVT demonstrated in the left lower extremity. Superficial thrombophlebitis of the left greater saphenous vein similar to previous exam.
== END 2023-01-28 14:16 | disposition home or self-care (01) ==
LOC: HO.US 14:15
PROVIDERS: PCP Nurse Practitioner Family; Visit Provider Surgery Vascular Surgery
DX: M79.605 Pain in left leg (principal)
CPT/HCPCS: 93971

== ENCOUNTER → 2023-01-29 09:56 | Outpatient (BNVA) | payer MEDICARE, MEDICAID, SELFPAY | PROVIDERS: PCP Nurse Practitioner Family; Visit Provider Surgery Vascular Surgery | DX: I80.02 Phlebitis and thrombophlebitis of superficial vessels of left lower extremity (principal); Z79.01 Long term (current) use of anticoagulants | CPT/HCPCS: 99212 ==

== ENCOUNTER → 2023-03-05 12:01 | Outpatient (BNVA) | payer MEDICARE, MEDICAID, SELFPAY | PROVIDERS: Visit Provider Orthopaedic Surgery | DX: G56.03 Carpal tunnel syndrome, bilateral upper limbs (principal); I80.02 Phlebitis and thrombophlebitis of superficial vessels of left lower extremity; Q87.2 Congenital malformation syndromes predominantly involving limbs; Z89.022 Acquired absence of left finger(s) | CPT/HCPCS: 99202 ==

== ENCOUNTER 2023-03-18 07:05 | Day surgery (SDC) | payer OTHER, SELFPAY ==
[2023-03-14 15:45] VITALS: BMI 15.4
--- NOTE | 2023-03-15 08:59 | HO.ANESPROP2 ---
Documented by User: Naomi Duarte NP 03/15/23 09:02 HPI - Anesthesia Eval Consult details Narrative: 37yo M for Right Carpal Tunnel Release Eliquis for left lower extremity superficial thrombophlebitis - ok to hold 48 hours preop per vascular PMF Active Problems Active Problems: All Active Problems (Updated 01/24/23 @ 15:30 by Kodi Vega, [facility]) Carpal tunnel syndrome, bilateral (Acute) Physical exam (Acute) Left leg pain (Acute) Superficial thrombophlebitis of left leg (Acute) Degenerative disc disease, cervical (Acute) Other motor neuron disease (Acute) Neuropathy (Acute) History of above-knee amputation of left lower extremity (Acute) History of amputation of finger of left hand (Acute) History of alcohol abuse (Acute) Dizziness (Acute) Vertigo (Acute) Low back pain with sciatica (Acute) Vertigo (Acute) Tremor of right hand (Acute) History of blood clots (Acute) History of above-knee amputation (Acute) Moderate anxiety (Acute) Moderate depressive disorder (Acute) Screening for eye condition (Acute) Screening for HIV (human immunodeficiency virus) (Acute) Klippel Trenaunay syndrome (Acute) Screening for diabetes mellitus (Acute) Annual physical exam (Acute ~07/25/21) Past Medical History Medical History Degenerative disc disease, cervical Family History Family History Mother Cancer Family history of cancer Mental health disorder Asthma Father High blood pressure Paternal Grandfather Aneurysm Brother Migraine Vertigo Surgical History Surgical History History of amputation below knee History of amputation of finger of left hand Social History Social History Housing: House Alcohol intake: former Patient Tobacco Use Status: Current everyday Tobacco user Tobacco use type: Cigar Cigarette Packs Per Day: 1 e-Cigarette/Vaping Use: Never Used Second Hand Smoke Exposure: No Substance Use Type: Marijuana Substance Use Frequency: Daily Are you DNR?: No Advance Directives: No Advance Directives Information Provided: Yes Nutrition Risks: No Nutritional Risk service: No Current occupational status: disabled 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, 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 Cognitive needs: No Hearing needs: No Vision needs: No Meds Allergies Allergy/AdvReac Type Severity Reaction Status Date / Time No Known Allergies Allergy Verified 03/18/23 07:36 Home Medications Medication Instructions Recorded Confirmed Last Taken Type folic acid 1 mg tablet 1 mg PO DAILY 03/07/22 03/18/23 Unknown History multivitamin-ferrous 1 tab PO DAILY 05/29/22 03/18/23 Unknown History fumarate-folic acid 18 mg-400 mcg tablet (Centrum Complete) Exam Exam Date and Time: March 15, 2023 0859 Height,Weight and Vital Signs: Height 6 ft 2 in Weight 54.431 kg Pertinent Lab Results Pertinent Lab Results: Laboratory Tests 01/13/23 01/13/23 22:11 22:11 WBC 8.6 Hgb 13.1 L Hct 39.4 L Plt Count 173 Sodium 140 Potassium 4.1 Chloride 104 Carbon Dioxide 27 BUN 15 Creatinine 0.85 Assessment and Plan Assessment Anesthesia Assessment: Chart Reviewed Documented by User: Sita Vizcaino MD 03/18/23 08:45 [facility] Past Medical History Medical History Degenerative disc disease, cervical Family History Family History Mother Cancer Family history of cancer Mental health disorder Asthma Father High blood pressure Paternal Grandfather Aneurysm Brother Migraine Vertigo Family history of problems with anesthesia: No Surgical History Surgical History History of amputation below knee History of amputation of finger of left hand History of Problems with Anesthesia: No Social History Social History Housing: House Alcohol intake: former Patient Tobacco Use Status: Current everyday Tobacco user Tobacco use type: Cigar Cigarette Packs Per Day: 1 e-Cigarette/Vaping Use: Never Used Second Hand Smoke Exposure: No Substance Use Type: Marijuana Substance Use Frequency: Daily Are you DNR?: No Advance Directives: No Advance Directives Information Provided: Yes Nutrition Risks: No Nutritional Risk service: No Current occupational status: disabled 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, 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 Cognitive needs: No Hearing needs: No Vision needs: No Meds Allergies Allergy/AdvReac Type Severity Reaction Status Date / Time No Known Allergies Allergy Verified 03/18/23 07:36 Home Medications Medication Instructions Recorded Confirmed Last Taken Type folic acid 1 mg tablet 1 mg PO DAILY 03/07/22 03/18/23 Unknown History multivitamin-ferrous 1 tab PO DAILY 05/29/22 03/18/23 Unknown History fumarate-folic acid 18 mg-400 mcg tablet (Centrum Complete) Exam Airway Mallampati Class: I TM Dist: >3cm Neck ROM: Full Loose/Missing/Broken Teeth: Yes and Upper Assessment and Plan Assessment Anesthesia Assessment: Anesthesia Plan Discussed and Smoking Cess. Discussed Final Anesthetic Review Family History of Problems with Anesthesia: No History of Problems with Anesthesia: No NPO: Yes ASA Class: II Final Preanesthetic Review: No Changes in Pt Med Stat, Meds/Allgs Chart Reviewed, Consent Obtained/Reviewed and Anes Risks/Benef Reviewed Patient Risk: Low Procedure Risk: Low Anesthetic Plan Anesthetic Plan: GA Disposition: Standard PACU
[2023-03-18] VITALS (7 sets, daily range): BP systolic 97–132; BP diastolic 47–84; PULSE 55–84; RESP 18–24; TEMP 36.6–36.9; O2SAT 96–100
--- NOTE | 2023-03-18 08:00 | W.PM.OPN ---
Operative Note Operative Note Date of Service: 03/18/23 Narrative: Operative Note Narrative: Preop diagnosis: 1. 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 Right carpal tunnel release Surgeon: Lelo Hood MD Anesthesia: General Anesthesia Findings: Thickening of both the transverse carpal ligament, and of the underlying tissues within the carpal tunnel. He did appear to have an hourglass type deformity of the median nerve. 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 The risks and benefits of operative treatment, including but not limited to risk of damage to blood vessels, nerves, tendons, infection, recurrence, persistent pain or numbness, incomplete resolution of preoperative symptoms, or need for further surgery were discussed with the patient and they wished to proceed with surgery. Procedure: Once consent was obtained patient was brought back to the operating suite and placed in the operating table in a supine position. . Perioperative antibiotics and anesthesia was administered by the anesthesia team. A tourniquet was applied to the proximal aspect of the right upper extremity and the limb was prepped and draped in a standard surgical fashion. The limb was elevated exsanguinated with Esmarch bandage and the tourniquet inflated to 250 mm of mercury for a total tourniquet time of 20 minutes. A 2.5 cm longitudinal incision was made centered over the right carpal tunnel. The incision was made through the skin to the subcutaneous tissues using a #15 blade. Dissection was made down to the level of the transverse carpal ligament with care being taken to protect the palmar cutaneous nerve. Once the transverse carpal ligament was clearly visualized, a longitudinal incision was made in the transverse carpal ligament 1st using a #15 blade, then using tenotomy scissors under direct visualization. Care was taken to look for and protect the motor branch of the median nerve when seen in this area. Both the transverse carpal ligament and the soft tissues deep to the transverse carpal ligament were noted to be thickened through the carpal tunnel. There was an hourglass deformity of the median nerve within the carpal tunnel. Once satisfied with our carpal tunnel release the wound was irrigated with normal saline. At this point the tourniquet was deflated and hemostasis obtained with a brief period of local pressure and bipolar electrocautery. The wound was copiously irrigated with normal saline. The skin edges were reapproximated with 5-0 nylon suture. The wound was infiltrated with some 1% lidocaine with epinephrine for postop pain control and a sterile dressing was applied. The patient appears to have tolerated the procedure well and with no complications. All digits were well vascularized conclusion of the case.
--- NOTE | 2023-03-18 10:27 | PC.NURSE ---
author verified that surgical site was marked by Dr. Hood prior to patient going into OR.
== END 2023-03-18 12:07 | disposition home or self-care (01) ==
PROVIDERS: PCP Nurse Practitioner Family; Visit Provider Orthopaedic Surgery
PROC: (CPT 64721; principal; 2023-03-18 09:00)
DX: G56.01 Carpal tunnel syndrome, right upper limb (principal); Q87.2 Congenital malformation syndromes predominantly involving limbs; Z86.718 Personal history of other venous thrombosis and embolism; F17.200 Nicotine dependence, unspecified, uncomplicated; Z79.01 Long term (current) use of anticoagulants; Z79.899 Other long term (current) drug therapy
CPT/HCPCS: 64721; J0690; J2250; J2405; J2795

== ENCOUNTER → 2023-03-18 07:05 | Outpatient (BNV) | payer OTHER, SELFPAY | PROVIDERS: PCP Nurse Practitioner Family; Visit Provider Orthopaedic Surgery | DX: G56.01 Carpal tunnel syndrome, right upper limb (principal) | CPT/HCPCS: 64721 ==

== ENCOUNTER 2023-03-27 11:33 | Outpatient (AMB) | payer OTHER, SELFPAY ==
--- NOTE | 2023-03-27 11:40 | A.OFFVIS_ITS ---
Intake Intake Visit Reasons: P/O CTR rt 03/18/23/ wound check Intake Note: Kp a 37 year old male presents today for a post operative wound check s/p right CTR on 03/18/23. Patient reports incision is doing well, he has concerns of pain/numbness in the laird aspect of the 2nd, 3rd and 4th at the MCP. Allergies No Known Allergies Allergy (Verified 03/27/23 11:44) HPI P/O CTR rt 03/18/23/ wound check HPI Details Kp is a 37 year old 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 man who presents S/P right carpal tunnel release, DOS 03/18/23. He says his sensation is improved and is now normal to the tips of the fingers, with good relief of his nighttime symptoms. He complains he felt increased pain mostly over the volar aspect of the middle and ring finger MCP joints, and says his dressing caused his veins to bulge in his palm. [facility] Medical History Degenerative disc disease, cervical Surgical History History of amputation below knee History of amputation of finger of left hand Family History Mother Cancer Family history of cancer Mental health disorder Asthma Father High blood pressure Paternal Grandfather Aneurysm Brother Migraine Vertigo Social History Housing: House Alcohol intake: former Patient Tobacco Use Status: Current everyday Tobacco user Tobacco use type: Cigar Cigarette Packs Per Day: 1 e-Cigarette/Vaping Use: Never Used Second Hand Smoke Exposure: No Substance Use Type: Marijuana service: No Current occupational status: disabled 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 Sutures removed and Steri-Strips applied He can make a fist and extend all his digits No unusual veins seen today Resolving mild ecchymosis in his palm Some tenderness over the middle finger a1 catracho area No tenderness in his palm Not particularly tender about his incision Sensation is improved and is now normal to the tips of all digits in the median nerve distribution Cap refill is brisk He has had an amputation of the left index and middle fingers, performed when he was ~5-6 years old. He has some enlargement of left hand, with abnormal over growth of the hand in general including the remaining thumb ring and small fingers Nerve Conduction Study: Impression: Severe bilateral carpal tunnel Normal EMG of the right C5-T1 innervated muscles Dr Tobias 01/09/23 Psych Appearance: grossly normal Affect: normal affect Attitude: cooperative Assessment & Plan Assessment & Plan (1) Carpal tunnel syndrome, bilateral: Code(s): G56.03 - Carpal tunnel syndrome, bilateral upper limbs (2) Superficial thrombophlebitis of left leg: Code(s): I80.02 - Phlebitis and thrombophlebitis of superficial vessels of left lower extremity (3) History of amputation of finger of left hand: Comment: two finger Code(s): Z89.022 - Acquired absence of left finger(s) (4) 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 Right carpal tunnel syndrome, S/P release Date of surgery 03/18/2023 Pre-operative symptoms intermittent, but daily, worse at night Now with normal sensation to the tips of all digits and good resolution of his nighttime symptoms The patient appears to be doing well post-operatively I educated him about the post-operative course I discussed activity modifications, he is to lift nothing heavier than a cellphone for the next two weeks He will perform gentle ROM exercises at home He should avoid any underwater activities for the next 5 days He should gently massage about the incision site to reduce the risk of hypersensitivity [place] like he had some swelling in the volar MCP joints, and does have some tenderness in the MCP joints of the middle and ring fingers. I believe this will all likely resolve with time. He will follow up in 2-3 weeks to see how he is doing, he may cancel this if he feels good 2. Left carpal carpal tunnel syndrome, severe Dense numbness in the thumb, with thenar wasting Hx of index and middle finger amputations in the past We can talk about this at his follow-up. He does have dense numbness in his thumb and thenar atrophy. I may consider ordering an MRI of his hand prior to considering surgery because of the abnormal over growth and anatomy. 3. Bilateral hand pain Radiating into the forearms, severe and constant No complaint about this today. Scribed for Lelo Hood MD by Amrik Sylvester, esthetician and manager medical spa, on 03/27/23 at 12:00 PM, EST. Coding Level of Care Code Global (13081) Diagnoses Carpal tunnel syndrome, bilateral G56.03 Superficial thrombophlebitis of left leg I80.02 History of amputation of finger of left hand Z89.022 Klippel Trenaunay syndrome Q87.2
== END 2023-03-27 12:06 | disposition home or self-care (01) ==
PROVIDERS: PCP Nurse Practitioner Family; Visit Provider Orthopaedic Surgery
DX: G56.03 Carpal tunnel syndrome, bilateral upper limbs (principal); I80.02 Phlebitis and thrombophlebitis of superficial vessels of left lower extremity; Z89.022 Acquired absence of left finger(s); Q87.2 Congenital malformation syndromes predominantly involving limbs
CPT/HCPCS: 99024

== ENCOUNTER → 2023-03-27 11:33 | Outpatient (BNVA) | payer OTHER, SELFPAY | PROVIDERS: PCP Nurse Practitioner Family; Visit Provider Orthopaedic Surgery ==

== ENCOUNTER 2023-04-02 11:11 | Outpatient (AMB) | payer OTHER, SELFPAY ==
--- NOTE | 2023-04-02 11:26 | A.OFFVIS_ITS ---
Intake Vital Signs 04/02/23 11:34 Height 6 ft 2 in Weight 130 lb BMI 16.7 Intake Visit Reasons: PO R CTR 03/18/23 AR Intake Note: Kp 37 yr old male presents today for his P/O wound check visit for his right CTR from 03/18/23. States numbness has improved in night time and is able to get a good night sleep. States he has numbness on incision area. Allergies No Known Allergies Allergy (Verified 04/02/23 11:34) HPI PO R CTR 03/18/23 AR HPI Details Kp is a 37 year old 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 man who presents S/P right carpal tunnel release, DOS 03/18/23. He says his sensation is improved and is now normal to the tips of the fingers, with good relief of his nighttime symptoms. He does complain of some numbness about his incision site. He is in the process of finding a new specialist concerning his leg prosthesis. He says due to some sort of injury he is unable to wear his left leg prosthesis at this time. 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 [facility] Medical History Degenerative disc disease, cervical Surgical History History of amputation below knee History of amputation of finger of left hand Family History Mother Cancer Family history of cancer Mental health disorder Asthma Father High blood pressure Paternal Grandfather Aneurysm Brother Migraine Vertigo Social History Housing: House Alcohol intake: former Patient Tobacco Use Status: Current everyday Tobacco user Tobacco use type: Cigar Cigarette Packs Per Day: 1 e-Cigarette/Vaping Use: Never Used Second Hand Smoke Exposure: No Substance Use Type: Marijuana service: No Current occupational status: disabled 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 He can make a fist and extend all his digits No tenderness in his palm Not particularly tender about his incision Sensation is improved and is now normal to the tips of all digits in the median nerve distribution Cap refill is brisk Regarding his left hand: He has had an amputation of the left index and middle fingers, performed when he was ~5-6 years old. He has some enlargement of left hand, with abnormal over growth of the hand in general including the remaining thumb ring and small fingers Dense numbness in the thumb Nerve Conduction Study: Impression: Severe bilateral carpal tunnel Normal EMG of the right C5-T1 innervated muscles Dr Tobias 01/09/23 Psych Appearance: grossly normal Affect: normal affect Attitude: cooperative Assessment & Plan Assessment & Plan (1) Carpal tunnel syndrome, bilateral: Code(s): G56.03 - Carpal tunnel syndrome, bilateral upper limbs (2) Superficial thrombophlebitis of left leg: Code(s): I80.02 - Phlebitis and thrombophlebitis of superficial vessels of left lower extremity (3) History of amputation of finger of left hand: Comment: two finger Code(s): Z89.022 - Acquired absence of left finger(s) (4) 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 Right carpal tunnel syndrome, S/P release DOS: 03/18/2023 Pre-operative symptoms intermittent, but daily, worse at night Now with normal sensation to the tips of all digits and good resolution of his nighttime symptoms The patient appears to be doing well post-operatively I educated him about the post-operative course I discussed activity modifications, he is to lift nothing heavier than a cellphone for the next two weeks He will perform gentle ROM exercises at home He should gently massage about the incision site to reduce the risk of hypersensitivity I anticipate he can return to work in ~2 weeks 2. Left carpal carpal tunnel syndrome, severe Dense numbness in the thumb, with thenar wasting Hx of index and middle finger amputations in the past He will follow up in 4-6 weeks to discuss this He does have dense numbness in his thumb and thenar atrophy. I may consider ordering an MRI of his hand prior to considering surgery because of the abnormal over growth and anatomy. It is unclear whether he may benefit from surgery, thus we will re-evaluate 3. Bilateral hand pain Radiating into the forearms, severe and constant No complaint about this today. Scribed for Lelo Hood MD by Amrik Sylvester, medical terminologist, on 03/27/23 at 12:00 PM, EST. Coding Level of Care Code Global (07418) Diagnoses Carpal tunnel syndrome, bilateral G56.03 Superficial thrombophlebitis of left leg I80.02 History of amputation of finger of left hand Z89.022 Klippel Trenaunay syndrome Q87.2
[2023-04-02 11:34] VITALS: BMI 16.7
== END 2023-04-02 12:05 | disposition home or self-care (01) ==
PROVIDERS: PCP Nurse Practitioner Family; Visit Provider Orthopaedic Surgery
DX: G56.03 Carpal tunnel syndrome, bilateral upper limbs (principal); I80.02 Phlebitis and thrombophlebitis of superficial vessels of left lower extremity; Z89.022 Acquired absence of left finger(s); Q87.2 Congenital malformation syndromes predominantly involving limbs
CPT/HCPCS: 99024

== ENCOUNTER → 2023-04-02 11:11 | Outpatient (BNVA) | payer OTHER, SELFPAY | PROVIDERS: PCP Nurse Practitioner Family; Visit Provider Orthopaedic Surgery ==

== ENCOUNTER 2023-04-17 07:28 | Outpatient (AMB) | payer OTHER, SELFPAY ==
--- NOTE | 2023-04-17 07:15 | A.OFFVIS_ITS ---
Intake Intake Visit Reasons: medical leave paper work Allergies No Known Allergies Allergy (Verified 04/17/23 07:38) HPI medical leave paper work HPI Details GSV thrombus LLE (BKA). Pt reports ongoing pain issues to his LLE. Pt reports pain with touch, though denies warmth, drainage, signs of cellulitis. Pt did report it is getting better, but he is not 100% and reports his prosthetic irritates, exacerbates the pain. Pt is still on eliquis bid, at least for 1 year (according to vascular's note). #2 pt had carpel tunnel surgery on 03/18/2023, which is still healing (expected to eventually have surg on right as well). I will keep him out of work for at least another 1.5 months to completely heal. [facility] Medical History Degenerative disc disease, cervical Surgical History History of amputation below knee History of amputation of finger of left hand Family History Mother Cancer Family history of cancer Mental health disorder Asthma Father High blood pressure Paternal Grandfather Aneurysm Brother Migraine Vertigo Social History Housing: House Alcohol intake: former Patient Tobacco Use Status: Current everyday Tobacco user Tobacco use type: Cigar Cigarette Packs Per Day: 1 e-Cigarette/Vaping Use: Never Used Second Hand Smoke Exposure: No Substance Use Type: Marijuana service: No Current occupational status: disabled 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, 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 Cognitive needs: No Hearing needs: No Vision needs: No Assessment & Plan Assessment & Plan (1) Left leg pain: Code(s): M79.605 - Pain in left leg (2) Superficial thrombophlebitis of left leg: Code(s): I80.02 - Phlebitis and thrombophlebitis of superficial vessels of left lower extremity (3) 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 (4) Carpal tunnel syndrome, bilateral: Code(s): G56.03 - Carpal tunnel syndrome, bilateral upper limbs Telehealth Telehealth Location of provider rendering services: practice address Location of patient: address on file Patient Identification confirmed using: Name, : Yes Telehealth method: video Patient verbally consented to treatment: Yes Patient verbally consented to billing insurance company: Yes Patient informed of any privacy concerns related to visit: Yes Minutes spent on Phone/Video with Pt.: 15 Coding Level of Care Code Tele Est Pt Level 3 (57504) Diagnoses Left leg pain M79.605 Superficial thrombophlebitis of left leg I80.02 Klippel Trenaunay syndrome Q87.2 Carpal tunnel syndrome, bilateral G56.03
== END 2023-04-17 07:56 | disposition home or self-care (01) ==
PROVIDERS: PCP Nurse Practitioner Family; Visit Provider Nurse Practitioner Family
DX: M79.605 Pain in left leg (principal); I80.02 Phlebitis and thrombophlebitis of superficial vessels of left lower extremity; Q87.2 Congenital malformation syndromes predominantly involving limbs; G56.03 Carpal tunnel syndrome, bilateral upper limbs
CPT/HCPCS: 99213

== ENCOUNTER 2023-05-01 12:08 | Outpatient (AMB) | payer OTHER, SELFPAY ==
--- NOTE | 2023-05-01 12:21 | A.OFFVIS_ITS ---
Intake Vital Signs 05/01/23 12:23 Height 6 ft 2 in Weight 130 lb BMI 16.7 Intake Visit Reasons: PO R CTR 03/18/23 AR Intake Note: Kp 37 yr old 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 male presents today for his post op visit for his right CTR from 03/18/23 .States he also has severe numbness in his left hand. 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 Last seen with Dr. Hood who would like to further discuss MRI of his hand prior to considering surgery because of the abnormal over growth and anatomy. Allergies No Known Allergies Allergy (Verified 05/01/23 12:23) HPI PO R CTR 03/18/23 AR HPI Details Kp is a 37 year old 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 man who presents to discuss his left carpal tunnel syndrome. He is S/P right carpal tunnel release, DOS 03/18/23. He says his sensation is improved and is now normal to the tips of the fingers, with good relief of his nighttime symptoms. He does complain he continues to have some pain and hypersensitivity in his hand, and demonstrates it to be on either side of the carpal tunnel incision site. He says holding his phone in his right hand causes him pain. Regarding his left hand, he has dense numbness in the thumb and radial aspect of the ring finger. Again his index and middle fingers had been amputated as a child. He says that when he was doing his heavy work he would often get pain in the left hand at night similar to the pain he was having in the right hand. He is worried that when he starts working again he will again have this pain. He is in the process of finding a new specialist concerning his leg prosthesis. He says due to some sort of injury he is unable to wear his left leg prosthesis at this time. 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 Family History Mother Cancer Family history of cancer Mental health disorder Asthma Father High blood pressure Paternal Grandfather Aneurysm Brother Migraine Vertigo Social History (Reviewed 05/01/23 @ 12:23 by Conchita Kellogg [facility]) Housing: House Alcohol intake: former Patient Tobacco Use Status: Current everyday Tobacco user Tobacco use type: Cigar Cigarette Packs Per Day: 1 e-Cigarette/Vaping Use: Never Used Second Hand Smoke Exposure: No Substance Use Type: Marijuana service: No Current occupational status: disabled 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 He can make a fist and extend all his digits Not particularly tender about his incision He has some mild tenderness over the pillars, and notes that this is where he gets this discomfort. Sensation is improved and is now normal to the tips of all digits in the median nerve distribution Cap refill is brisk Regarding his left hand: He has had an amputation of the left index and middle fingers, performed when he was ~5-6 years old. He has some enlargement of left hand, with abnormal over growth of the hand in general including the remaining thumb ring and small fingers Dense numbness in the thumb and radial aspect of the ring finger. 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 Right carpal tunnel syndrome, S/P release DOS: 03/18/2023 Pre-operative symptoms intermittent, but daily, worse at night Now with normal sensation to the tips of all digits and good resolution of his nighttime symptoms The patient appears to be doing well post-operatively He has some pillar pain & hypersensitivity in his right hand I ordered OT hand therapy to work on desensitization training and encouraged him to continue to work on ROM exercises and massaging about his hand to reduce his hypersensitivity 2. 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 However, he says that when he was working he would have the same pain at night in his left hand as he did in his right hand before his right carpal tunnel release. I ordered an MRI of his left hand, without contrast, to assess for abnormal anatomy about the carpal tunnel prior to discussing a carpal tunnel release He will follow up when completed for review 3. Bilateral hand pain Radiating into the forearms, severe and constant No complaint about this today. Scribed for Lelo Hood MD by Amrik Sylvester, claim review medical director, on 05/01/23 at 12:25 PM, EST. Orders: Orders MR hand LT wo con Today G56.03 - Carpal tunnel syndrome, bilateral upper limbs, Q87.2 - Congenital malformation syndromes predominantly involving limbs, Z89.022 - Acquired absence of left finger(s) OT Evaluation and Treatment Today G56.03 - Carpal tunnel syndrome, bilateral upper limbs, Q87.2 - Congenital malformation syndromes predominantly involving limbs, Z89.022 - Acquired absence of left finger(s) Coding Level of Care Code Est Pt Level 3 (62264) Diagnoses Carpal tunnel syndrome, bilateral G56.03 History of amputation of finger of left hand Z89.022 Klippel Trenaunay syndrome Q87.2
[2023-05-01 12:23] VITALS: BMI 16.7
== END 2023-05-01 12:27 | disposition home or self-care (01) ==
PROVIDERS: PCP Nurse Practitioner Family; Visit Provider Orthopaedic Surgery
DX: G56.03 Carpal tunnel syndrome, bilateral upper limbs (principal); Z89.022 Acquired absence of left finger(s); Q87.2 Congenital malformation syndromes predominantly involving limbs
CPT/HCPCS: 99024

== ENCOUNTER → 2023-05-01 12:08 | Outpatient (BNVA) | payer OTHER, SELFPAY | PROVIDERS: PCP Nurse Practitioner Family; Visit Provider Orthopaedic Surgery ==

== ENCOUNTER 2023-05-02 09:20 | Outpatient (AMB) | payer OTHER, SELFPAY ==
--- NOTE | 2023-05-02 09:27 | MHC.PC.OV ---
Vital Signs 05/02/23 09:28 Height 6 ft 2 in Weight 126 lb 4 oz BMI 16.2 BP 110/68 Blood Pressure Location Lt brachial Position Sitting Pulse 81 Pulse Source Pulse Oximeter Pulse Oximetry (%) 99 Oxygen Delivery Method Room Air Intake Visit Reasons: 3m follow up Allergies No Known Allergies Allergy (Verified 05/02/23 09:29) Tobacco use date assessed: 05/02/23 Dental Screening Dental Screen Date: 05/02/23 Did you have a dental visit in the last 12 months?: No Did you have a dental problem in the last 6 months where you did not have access to dental care?: No Was dental information given to patient?: Patient has dentist HPI 3m follow up HPI Details Pt reports reports left hand pain and numbness, has another appointment with ortho on 05/15. He is awaiting an MRI of his left hand. Pt reports pain of his LLE stump (more distal/medial aspect). He was seen by vascular and diagnosed with superficial thrombophlebitis and put on eliquis. Pt reports that this is improving. Denies fever, chills, and dizziness. [facility] Medical History Degenerative disc disease, cervical Surgical History History of amputation below knee History of amputation of finger of left hand Family History Mother Cancer Family history of cancer Mental health disorder Asthma Father High blood pressure Paternal Grandfather Aneurysm Brother Migraine Vertigo Social History (Reviewed 05/01/23 @ 12:23 by Conchita Kellogg [facility]) Housing: House Alcohol intake: former Patient Tobacco Use Status: Current everyday Tobacco user Tobacco use type: Cigar Cigarettes Per Day: 1 e-Cigarette/Vaping Use: Never Used Second Hand Smoke Exposure: No Substance Use Type: Marijuana service: No Current occupational status: disabled 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 Aleksey, Kp Lanier and colleagues, with an educational demarcus from [employer]. Review of Systems Const Reports as per HPI Physical exam (Primary Care) Vital Signs: Last Vital Signs Pulse 81 05/02/23 09:28 BP 110/68 05/02/23 09:28 Pulse Ox 99 05/02/23 09:28 Oxygen Delivery Method Room Air 05/02/23 09:28 BMI result Body Mass Index 16.2 Tobacco/Smoking Status: Tobacco use Status Tobacco use date assessed 05/02/23 05/02/23 09:33 Patient Tobacco Use Status Current everyday Tobacco 05/02/23 09:33 Tobacco use type Cigar 05/02/23 09:33 e-Cigarette/Vaping Use Never Used 05/02/23 09:33 Thrive Assessment: Date of Thrive Assessment Date Thrive assessed 01/24/23 05/02/23 09:33 Const General: cooperative Orientation/consciousness: patient oriented x3 Resp Effort & Inspection: normal respiratory effort Auscultation: clear to auscultation bilaterally Cardio Rate: regular rate Rhythm: regular rhythm Heart sounds: S1 normal heart sound present and S2 normal heart sound present Neuro General: patient oriented x3 Extrem Other: multiple varicosities to RLE nodular appearing, defect of left hand, swelling to region between thumb and fingers palmar aspect (fluctuant) without signs of infection, LLE with AKA, no warmth or erythema, medial distal aspect with fat pad, no signs of infection, no tenderness with palpation Psych Appearance: grossly normal Mental Status: mental status grossly normal Speech and movement: Normal speech and movement present Affect: normal affect Attitude: cooperative Thought process: Normal thought process present Thought content: Normal thought content present Insight: Good insight present (Psych) Judgement: Good judgement present (Psych) Assessment and Plan Assessment & Plan (1) Superficial thrombophlebitis of left leg: Code(s): I80.02 - Phlebitis and thrombophlebitis of superficial vessels of left lower extremity (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 Scribed for VERNELL Loera by connor Coats scribe, on 05/02/2023 at 09:45 EST. Coding Level of Care Code Est Pt Level 3 (72033) Diagnoses Superficial thrombophlebitis of left leg I80.02 Hand anomaly Q74.0
[2023-05-02 09:28] VITALS: BP 110/68; PULSE 81; O2SAT 99; BMI 16.2
== END 2023-05-02 11:10 | disposition home or self-care (01) ==
PROVIDERS: PCP Nurse Practitioner Family; Visit Provider Nurse Practitioner Family
DX: I80.02 Phlebitis and thrombophlebitis of superficial vessels of left lower extremity (principal); Q74.0 Other congenital malformations of upper limb(s), including shoulder girdle
CPT/HCPCS: 99213

== ENCOUNTER 2023-05-31 16:34 | Outpatient (REF) | payer OTHER, SELFPAY ==
--- NOTE | ~2023-05-31 | MR_ITS ---
EXAMINATION: MR HAND WITHOUT CONTRAST, LEFT INDICATION: Carpal tunnel syndrome, bilateral upper limbs. Klippel-Trenaunay syndrome. Evaluate for normal versus abnormal anatomy about the carpal tunnel. COMPARISON: None TECHNIQUE: Multiplanar MR imaging was obtained through the left hand without contrast material on a 1.5 Skylar magnet. FINDINGS: There is abnormal anatomy throughout the wrist and hand related to the provided history of Klippel-Trenaunay syndrome. There is absence of the index and long fingers at the level of the metacarpal bases which is presumably congenital, though chronic postoperative changes cannot be excluded. 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 A prominent volar osseous excrescence is evident at the ulnar margin of the distal radius measuring 2.3 x 1.5 x 2 cm, likely related to variant anatomy. This produces mass effect upon the adjacent volar structures just proximal to the entrance to the carpal tunnel including the thickened median nerve. Moderate osteoarthritis is evident at the 1st CMC joint with cartilage loss, marginal osteophytes, and subchondral cystic change/edema. More [id number] degrees of osteoarthritis are noted at the other CMC joints. Mild generalized marrow edema signal within the carpal bones is favored to be degenerative in nature. The scaphoid appears relatively hypoplastic. There is abnormal low signal intensity throughout the lunate on T1-weighted images and low to intermediate signal intensity on T2-weighted images, most consistent with avascular necrosis. There is slight flattening of the proximal articular cortex of the lunate. Chronic osseous fragments are present at the dorsal margin of the lunate which could be due to osteochondral fragmentation, though are not well assessed on these images. No acute bony fractures are identified. Negative ulnar variance measures 9 mm. There is a hyperplastic sesamoid at the palmar margin of the thumb interphalangeal joint, measuring 1.7 x 1.2 x 1.6 cm. In the palmar soft tissues, there are heterogeneous, nodular low signal intensity structures measuring 2.4 x 2 x 1.8 cm and 1.9 x 1.8 x 2 cm, favored to correspond to hypertrophied terminations of fascicles from the median nerve. Within the carpal tunnel, there are multiple cyst-like excrescences from the adjacent intercarpal joints which likely contribute to mass effect upon the tendons and median nerve in the carpal tunnel. The largest cluster of cysts measures 1.4 x 0.7 x 1.1 cm. Effusions are present at the radiocarpal and midcarpal joints, likely degenerative in nature or reactive to the aforementioned avascular necrosis of the lunate. There is heterogeneous skin thickening in the hand in the region of the absent index and long fingers. This could be due to callus formation or an epidermal nevus. MR/MR hand LT wo con IMPRESSION: 1. Abnormal anatomy throughout the wrist and hand related to the provided history of Klippel-Trenaunay syndrome. No corresponding abnormally hypertrophied vascular structures are identified. Other syndromes could produce this appearance. There is absence of the index and long fingers at the level of the metacarpal bases which is presumably congenital, though chronic remote postoperative changes are also possible. 2. 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 No superimposed acute fractures are identified. Associated negative ulnar variance. 3. Diffusely thickened median nerve which terminates on to nodular hypertrophied structures in the palmar soft tissues of the hand, possibly corresponding to chronic stump neuromas (in the setting of prior surgery) or congenital malformations of the peripheral nerves. Of note, a prominent osseous excrescence from the palmar margin of the distal radius produces mass effect upon the median nerve just proximal to the carpal tunnel and ganglion cyst at the deep margin of the carpal joints also contribute to mass effect upon the median nerve at the level of the carpal tunnel. 4. 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 5. Heterogeneous skin thickening in the region of the absent index and long fingers, potentially due to callus formation or an epidermal nevus.
== END 2023-05-31 16:35 | disposition home or self-care (01) ==
LOC: HO.MRI 16:34
PROVIDERS: PCP Nurse Practitioner Family; Visit Provider Orthopaedic Surgery
DX: G56.03 Carpal tunnel syndrome, bilateral upper limbs (principal); Q87.2 Congenital malformation syndromes predominantly involving limbs; Z89.022 Acquired absence of left finger(s)
CPT/HCPCS: 73218

== ENCOUNTER 2023-06-05 11:30 | Outpatient (RCR) | payer OTHER, SELFPAY ==
--- NOTE | 2023-05-17 11:17 | MHC.OT.EP ---
[address] [phone] Occupational Therapy Plan of Care Patient Name: Kp Moreno Date of Evaluation: 05/17/23 Diagnosis: B/L CTS, R CTR w/ pillar pain Pain Location: 4/10 resting pain, sharp stabbing ache in right palm 8/10 sharp pain w/ movement and use Pain Score: 4 Pain Scale Used: Numeric (0 - 10) Aggravating Factors: General use Alleviating Factors: Nothing used/tried Assessment: 37 yo male w/ hx of bilateral carpal tunnel syndrome, now post-op right CTR 03/18/23 w/ Dr Hood. He reports good relief of symptoms, but some hypersensitivity over incision site and now sharp pain through wrist and into hand. He also reports significant numbness in left hand and is following up w/ MRI to assess soft tissue mass prior to further surgical intervention. On assessment, surgical incision is well healed and he demo's good range and coordination, but has tenderness to palpate over volar wrist and pain symptoms consistent w/ post-op pillar pain. I anticipate he will do well w/ course of OT for management of post-op pain and hypersensitivity w/ ultimate goal of return to full work duties. Frequency and Duration: The patient will be seen 2x/wk for 4 weeks Short Term Goals: Ind w/ self massage/soft tissue mobilization Ind w/ desensitization techniques/textures Ind w/ HEP for tendon glides and median nerve glides Chicken Tender Goals: Pain free right hand w/ light-moderate daily activities Right gross grasp 75lb Pt to report ease w/ gross grasping items (jars, fishing pole, buckets, etc) Treatment Plan: Therapeutic Exercise Therapeutic Activity Home Exercise Program Patient Education Desensitization/Sensory Re-ed Edema Control ADL Training Ultrasound Paraffin Fluidotherapy MHP Cold Packs Joint Mobilization Soft Tissue Mobilization Electronically Signed By: Carolina Morocho OTR/L CHT Please Sign and return to therapist. Thank you once again for your referral.
--- NOTE | 2023-06-12 08:00 | MHC.OT.DC ---
[address] [phone] F: [phone] Occupational Therapy Discharge Note Patient Name: Kp Moreno Provider: Dr Lelo Hood Diagnosis: B/L CTS Date of Surgery: 03/18/23 Date of Evaluation: 05/17/23 Date of Discharge: 06/05/23 Treatments to Date: 7 Discharge Status: Independent with HEP Discharge Summary: Kp was referred to OT post-op right CTR w/ pillar pain. He has done course of OT w/ some improvements, but still experiencing pain with forceful grasp (holding fishing pole, jars and buckets). Good understanding of HEP for range, strengthening and desensitization. He is still experiencing pillar pain and some scar sensitivity, although showing improvements and has good knowledge for self management. Electronically Signed By: KAMALA Hutchinson/Lucio Lindo Reviewed/agree with student documentation: Yes Therapist: KAMALA Hutchinson/Lucio LINDO Please Sign and return to therapist, thank you for your referral.
== END 2023-06-12 08:01 | disposition home or self-care (01) ==
LOC: HO.OT 11:30
PROVIDERS: PCP Nurse Practitioner Family; Visit Provider Orthopaedic Surgery
DX: G56.03 Carpal tunnel syndrome, bilateral upper limbs (principal); Q87.2 Congenital malformation syndromes predominantly involving limbs; Z89.022 Acquired absence of left finger(s)
CPT/HCPCS: 97035; 97110; 97140; 97166

== ENCOUNTER 2023-06-26 14:54 | Outpatient (AMB) | payer OTHER, SELFPAY ==
--- NOTE | 2023-06-26 15:30 | A.OFFVIS_ITS ---
Intake Vital Signs 06/26/23 15:32 Height 6 ft 2 in Weight 132 lb BMI 16.9 Intake Visit Reasons: New Prob- left hand pain Intake Note: Kp 37 yr old male p resents today for his MRI review of left hand. Allergies No Known Allergies Allergy (Verified 06/26/23 15:31) HPI New Prob- left hand pain HPI Details Kp is a 37 year old 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 man who returns for an MRI review of his left wrist. . 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 He is status post ray resections of his left index and middle fingers as a child. Regarding complaints about his left hand: He has dense numbness in the left thumb and radial aspect of the ring finger, which has been there for years. He has thenar atrophy. He complains that he gets pain in his ring and small fingers with heavier work. He says that when he was doing his heavy work he would often get pain in the left hand at night similar to the pain he was having in the right hand. He is S/P right carpal tunnel release, DOS 03/18/23 with excellent improvement in his symptoms. He says his sensation is improved and is now normal, and his hypersensitivity has improved with OT hand therapy. He is happy about no longer having any nighttime symptoms anymore and being able to sleep comfortably. He returned to work at the end of May. 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 He is frustrated by this and says it is very d ifficult for him.? 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 He is in the process of finding a new specialist concerning his leg prosthesis. 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 Family History Mother Cancer Family history of cancer Mental health disorder Asthma Father High blood pressure Paternal Grandfather Aneurysm Brother Migraine Vertigo Social History Housing: House Alcohol intake: former Patient Tobacco Use Status: Current everyday Tobacco user Tobacco use type: Cigar Cigarettes Per Day: 1 e-Cigarette/Vaping Use: Never Used Second Hand Smoke Exposure: No Substance Use Type: Marijuana service: No Current occupational status: disabled 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 His surgical incision is well healed with no evidence of infection. He no longer has hypersensitivity about the incision site. He can make a tight fist with good strength and extend all of his digits. Complete resolution of nighttime symptoms, and of the symptoms that were worse with heavy work. Evaluation of Left Upper Extremity: The patient is alert, oriented, and in no acute distress Neuro: Dense numbness in the thumb and radial aspect of the ring finger. Severe thenar atrophy More normal sensation to the small finger and ulnar aspect of the ring finger He has had an amputation of the left index and middle fingers, performed when he was ~5-6 years old. He has significant enlargement of left hand, with abnormal over growth of the hand in general including the remaining thumb ring and small fingers. Again these are findings typical with his syndrome. Vascular: Cap refill brisk ROM: He can grasp my wrist with his thumb, ring, and small fingers with good strength Prominence of the volar aspect of the distal forearm. This is consistent with the bony prominence of the distal radius seen on the MRI. Nerve Conduction Study: Impression: Severe bilateral carpal tunnel Normal EMG of the right C5-T1 innervated muscles Dr Tobias 01/09/23 MRI: FINDINGS: There is abnormal anatomy throughout the wrist and hand related to the provided history of Klippel-Trenaunay syndrome. There is absence of the index and long fingers at the level of the metacarpal bases which is presumably congenital, though chronic postoperative changes cannot be excluded. 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 A prominent volar osseous excrescence is evident at the ulnar margin of the distal radius measuring 2.3 x 1.5 x 2 cm, likely related to variant anatomy. This produces mass effect upon the adjacent volar structures just proximal to the entrance to the carpal tunnel including the thickened median nerve. Moderate osteoarthritis is evident at the 1st CMC joint with cartilage loss, marginal osteophytes, and subchondral cystic change/edema. More [id number] degrees of osteoarthritis are noted at the other CMC joints. Mild generalized marrow edema signal within the carpal bones is favored to be degenerative in nature. The scaphoid appears relatively hypoplastic. There is abnormal low signal intensity throughout the lunate on T1-weighted images and low to intermediate signal intensity on T2-weighted images, most consistent with avascular necrosis. There is slight flattening of the proximal articular cortex of the lunate. Chronic osseous fragments are present at the dorsal margin of the lunate which could be due to osteochondral fragmentation, though are not well assessed on these images. No acute bony fractures are identified. Negative ulnar variance measures 9 mm. There is a hyperplastic sesamoid at the palmar margin of the thumb interphalangeal joint, measuring 1.7 x 1.2 x 1.6 cm. In the palmar soft tissues, there are heterogeneous, nodular low signal intensity structures measuring 2.4 x 2 x 1.8 cm and 1.9 x 1.8 x 2 cm, favored to correspond to hypertrophied terminations of fascicles from the median nerve. Within the carpal tunnel, there are multiple cyst-like excrescences from the adjacent intercarpal joints which likely contribute to mass effect upon the tendons and median nerve in the carpal tunnel. The largest cluster of cysts measures 1.4 x 0.7 x 1.1 cm. Effusions are present at the radiocarpal and midcarpal joints, likely degenerative in nature or reactive to the aforementioned avascular necrosis of the lunate. There is heterogeneous skin thickening in the hand in the region of the absent index and long fingers. This could be due to callus formation or an epidermal nevus. MR/MR hand LT wo con IMPRESSION: 1. Abnormal anatomy throughout the wrist and hand related to the provided history of Klippel-Trenaunay syndrome. No corresponding abnormally hypertrophied vascular structures are identified. Other syndromes could produce this appearance. There is absence of the index and long fingers at the level of the metacarpal bases which is presumably congenital, though chronic remote postoperative changes are also possible. 2. 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 No superimposed acute fractures are identified. Associated negative ulnar variance. 3. Diffusely thickened median nerve which terminates on to nodular hypertrophied structures in the palmar soft tissues of the hand, possibly corresponding to chronic stump neuromas (in the setting of prior surgery) or congenital malformations of the peripheral nerves. Of note, a prominent osseous excrescence from the palmar margin of the distal radius produces mass effect upon the median nerve just proximal to the carpal tunnel and ganglion cyst at the deep margin of the carpal joints also contribute to mass effect upon the median nerve at the level of the carpal tunnel. 4. 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 5. Heterogeneous skin thickening in the region of the absent index and long fingers, potentially due to callus formation or an epidermal nevus. Dictated by: kan 06/03/23 Psych Appearance: grossly normal Affect: normal affect Attitude: cooperative Assessment & Plan Assessment & Plan (1) Carpal tunnel syndrome, bilateral: Code(s): G56.03 - Carpal tunnel syndrome, bilateral upper limbs (2) History of amputation of finger of left hand: Comment: two finger Code(s): Z89.022 - Acquired absence of left finger(s) (3) 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 Left carpal tunnel syndrome, severe Longstanding Dense numbness in the thumb, with thenar wasting Hx of index and middle finger amputations in the past Overgrowth of the hand secondary to Klippel Trenaunay syndrome He has been less symptomatic since he has not been at work. However, he says that when he was working he felt he would have similar pain at night in his left hand as he did in his right hand before his right carpal tunnel release. It is unclear if this pain is nerve related or perhaps related to joint or other issues. I reviewed his MRI results with him and discussed treatment options After our discussion we both agree that the current best course of action is to allow him to return to work at this time and monitor his symptoms If his symptoms of pain persist or worsen when he has returned to work then he may follow up to discuss treatment. If he develops such pain, we then need to determine whether the etiology is median nerve compression. Decompression of the median nerve in this patient with not entail a simple carpal tunnel release. His anatomy is significantly different because of his syndrome. Decompression of the median nerve may also involve resection of the fairly large bony prominence of the volar aspect of the distal radius. Care would have to be taken to assure that the wrist would not be destabilized by such a procedure. Given his MRI results he may benefit from a referral to a specialist hospital to discuss treatment as the anatomy of his hand is very different. 2. Right carpal tunnel syndrome, S/P release DOS: 03/18/2023 Pre-operative symptoms intermittent, but daily, worse at night Now with normal sensation to the tips of all digits and good resolution of his nighttime and daytime symptoms He is very pleased with the improvement in his right hand since surgery. 3. Bilateral hand pain Radiating into the forearms, severe and constant No complaint about this today. Please note that greater than 45 minutes was spent with this patient evaluating him and his studies, formulating a treatment plan and documenting the visit. Scribed for Lelo Hood MD by Amrik Sylvester, medical front desk specialist, on 06/26/23 at 3:50 PM, EST. Coding Level of Care Code Est Pt Level 5 (29497) Diagnoses Carpal tunnel syndrome, bilateral G56.03 History of amputation of finger of left hand Z89.022 Klippel Trenaunay syndrome Q87.2
[2023-06-26 15:32] VITALS: BMI 16.9
== END 2023-06-26 16:14 | disposition home or self-care (01) ==
PROVIDERS: PCP Nurse Practitioner Family; Visit Provider Orthopaedic Surgery
DX: G56.03 Carpal tunnel syndrome, bilateral upper limbs (principal); Z89.022 Acquired absence of left finger(s); Q87.2 Congenital malformation syndromes predominantly involving limbs
CPT/HCPCS: 99214

== ENCOUNTER → 2023-06-26 14:54 | Outpatient (BNVA) | payer OTHER, SELFPAY | PROVIDERS: PCP Nurse Practitioner Family; Visit Provider Orthopaedic Surgery | DX: G56.03 Carpal tunnel syndrome, bilateral upper limbs (principal); Q87.2 Congenital malformation syndromes predominantly involving limbs; Z89.022 Acquired absence of left finger(s) | CPT/HCPCS: 99212 ==

== ENCOUNTER 2023-08-09 11:09 | Outpatient (AMB) | payer OTHER, SELFPAY ==
[2023-08-09 11:57] VITALS: BP 112/60; PULSE 95; TEMP 36.3; O2SAT 97; BMI 17.5
--- NOTE | 2023-08-09 11:57 | AM.OFFWIN_ITS ---
Intake Vital Signs 08/09/23 11:57 Height 6 ft 2 in Weight 136 lb BMI 17.5 BP 112/60 Blood Pressure Location Rt brachial Position Sitting Pulse 95 Pulse Source Pulse Oximeter Temp 97.3 F Temp Source Temporal Artery Scan Pulse Oximetry (%) 97 Oxygen Delivery Method Room Air Intake Visit Reasons: EST/cough and congestion ([phone]) Intake Note: Pt is here today for cough and congestion started this morning. Patient Tobacco Use Status: Current everyday Tobacco user Allergies No Known Allergies Allergy (Verified 08/09/23 11:57) Do you need a note to return to daycare/school/sports/work: No HPI HPI Comments History of Present Illness Details This is a 37-year-old male who presents to the office today for sick visit. Patient complaining of a cough with yellow-green sputum production x1 day in the setting of viral URI symptoms x3 days. Patient states started to develop viral UR symptoms such as nasal congestion, rhinorrhea, and mild sore throat approximately 3 days ago. He was started to develop a cough with yellow- green sputum urine production last night into this morning. He denies any fevers or chills. He denies any chest pain or shortness of breath. He denies a history of asthma or COPD. 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 Family History Mother Cancer Family history of cancer Mental health disorder Asthma Father High blood pressure Paternal Grandfather Aneurysm Brother Migraine Vertigo Social History Housing: House Alcohol intake: former Patient Tobacco Use Status: Current everyday Tobacco user Tobacco use type: Cigar Cigarettes Per Day: 1 e-Cigarette/Vaping Use: Never Used Second Hand Smoke Exposure: No Substance Use Type: Marijuana service: No Current occupational status: disabled 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, 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 Cognitive needs: No Hearing needs: No Vision needs: No Review of Systems Const All systems reviewed & are unremarkable except as noted in HPI and below Reports no additional complaints Eyes Reports no additional complaints ENT Reports no additional complaints Card Reports no additional complaints Resp Reports no additional complaints GI Reports no additional complaints Reports no additional complaints Musc Reports no additional complaints Skin/Breast Reports system reviewed and no additional complaints, except as documented Neuro Reports no additional complaints Psych Reports no additional complaints Endo Reports no additional complaints Cristiano/Lymph Reports no additional complaints Aller/Immun Reports no additional complaints Physical Exam Vital Signs: Last Vital Signs Temp 97.3 F 08/09/23 11:57 Pulse 95 08/09/23 11:57 BP 112/60 08/09/23 11:57 Pulse Ox 97 08/09/23 11:57 Oxygen Delivery Method Room Air 08/09/23 11:57 BMI result Body Mass Index 17.5 Const Other: Vital signs reviewed. Constitutional: Non-toxic appearing. No acute distress. Well-developed and well-nourished. HEENT: Normocephalic and atraumatic. Tympanic membranes without erythema, edema, or bulging bilaterally. External auditory canals without erythema or edema bilaterally. Moist mucous membranes. No pharyngeal erythema or exudates. Skin: Warm and dry. No rashes or lesions noted. Neck: Full and painless range of motion. No cervical lymphadenopathy. Cardio: Regular rate and rhythm. No murmurs, gallops, or rubs. No lower extremity edema. No JVD. Pulmonary: No respiratory distress. No accessory muscle usage. Clear to auscultation bilaterally without wheezing, crackles, or rhonchi. Gastrointestinal: Soft, nontender, and nondistended in all 4 quadrants. Normoactive bowel sounds in all 4 quadrants. Genitourinary: No CVA tenderness. Musculoskeletal: Normal range of motion in joints throughout the body. No deformity or other signs of injury. Neuro: Alert and oriented x4. Cranial nerves 2-12 grossly intact. No focal de ficits appreciated. Psych: Normal mood and affect. Assessment & Plan Assessment & Plan (1) Viral URI with cough: Code(s): J06.9 - Acute upper respiratory infection, unspecified Plan: This is a 37-year-old male who presents to the office complaining of a productive cough with yellow-green sputum x1 day in the setting of recent viral URI symptoms. On physical examination, his lungs are clear to auscultation mc aterally. He denies any shortness of breath. His vital signs are stable, he is maintaining oxygen saturations on room air, and he is overall nontoxic appearing. History and physical most consistent with a viral respiratory tract infection. Recommended symptomatic management including rest, increased fluids, advil/tylenol for pain/fever, and over the counter throat lozenges/decongestants. Check chest x-ray to further evaluate for pneumonia, if positive, will send antibiotics to patient's pharmacy. COVID/ flu/ RSV sent. Patient advised to follow up here or go to the emergency room for worsenin g/persistent symptoms such as worsening cough, worsening sputum production, hemoptysis, shortness of breath, or chest pain. Patient verbalized understanding and is agreeable with the plan. Orders: Orders XR chest 2V Today R05.9 - Cough, unspecified SARS-CoV2/FLU/RSV Today R09.89 - Other specified symptoms and signs involving the circulatory and respiratory systems Coding Level of Care Code Est Pt Level 3 (90850) Diagnoses Viral URI with cough J06.9
== END 2023-08-09 13:07 | disposition home or self-care (01) ==
PROVIDERS: PCP Nurse Practitioner Family; Visit Provider Physician Assistant Medical
DX: J06.9 Acute upper respiratory infection, unspecified (principal)
CPT/HCPCS: 99213

== ENCOUNTER 2023-08-09 12:30 | Outpatient (REF) | payer OTHER, SELFPAY ==
--- NOTE | ~2023-08-09 | XR_ITS ---
EXAMINATION: XR CHEST CLINICAL INFORMATION: Cough COMPARISON: Asbestos Removal Supervisor film from CT dated 10/22/2022 TECHNIQUE: 2 views of the chest were obtained. FINDINGS: No convincing evidence for an acute process. There appears to be an element of pectus deformity. There is loss in visualization of the right heart border but I feel this is similar to napper runner film from CT. No infiltrate or effusion. Cardiac silhouette is within normal limits The hilar regions do not appear pathologically enlarged. XR/XR chest 2V IMPRESSION: No convincing evidence for an acute process.
[2023-08-09 15:50] LABS: Influenza A PCR NEGATIVE (Negative); Influenza B PCR NEGATIVE (Negative); Resp Syncy Virus RNA Qual PCR NEGATIVE (Negative); SARS COV2 PCR INHOUSE NEGATIVE (Negative)
== END 2023-08-09 12:31 | disposition home or self-care (01) ==
LOC: HO.HMGCX 12:30
PROVIDERS: PCP Nurse Practitioner Family; Visit Provider Physician Assistant Medical
DX: Z11.52 Encounter for screening for COVID-19 (principal); Z20.822 Contact with and (suspected) exposure to COVID-19; R09.89 Other specified symptoms and signs involving the circulatory and respiratory systems; R05.9 Cough, unspecified
CPT/HCPCS: 0241U; 71046

== ENCOUNTER 2023-09-18 08:16 | Emergency (ER) | payer MEDICAID, SELFPAY ==
--- NOTE | ~2023-09-18 | XR_ITS ---
EXAMINATION: XR CHEST CLINICAL INFORMATION: Chest pain COMPARISON: 08/09/2023 TECHNIQUE: 2 views of the chest were obtained. FINDINGS: No significant abnormality is noted involving the heart, lungs, mediastinum, bony thorax or soft tissues. Again noted is a mild pectus deformity. XR/XR chest 2V IMPRESSION: No acute intrathoracic disease.
--- NOTE | ~2023-09-18 | CT_ITS ---
EXAMINATION: CT ANGIOGRAM OF THE CHEST WITH AND WITHOUT CONTRAST (CT PULMONARY ANGIOGRAM FOR PE) CLINICAL INFORMATION: Known clot now with chest pain COMPARISON: Chest radiograph earlier today and CT chest 10/22/2022 TECHNIQUE: Prior to contrast administration, noncontrast localization images were obtained. Subsequently, multidetector volumetric imaging was performed from the thoracic inlet to below the diaphragms following the administration of 65 mL Omnipaque 350 intravenous contrast. No contrast reaction reported Sagittal, coronal, and MIP oblique sagittal reformatted images were obtained on the CT workstation, uploaded to PACS, and reviewed. This CT examination was performed using dose optimization techniques as appropriate, variously including the following: *Automated exposure control *Adjustment of mA and/or kV according to patient size (this includes techniques or standardized protocols for targeted exams where dose is matched to indication/reason for exam; i.e. extremities or head) *Use of iterative reconstruction technique Total exam dose-length product 213 mGy-cm FINDINGS: QUALITY OF STUDY/CONTRAST BOLUS: Satisfactory. PULMONARY ARTERIES: No pulmonary emboli. THORACIC AORTA: No aneurysm. LUNG: Minutes changes are present throughout the lungs. Some large bullae are present at the left lung base medially. No focal consolidation, nodules or masses. PLEURA: No pleural effusion or pneumothorax. There is an area of pleural scarring is seen in the left upper lobe posteriorly with some punctate calcifications. MEDIASTINUM: Normal heart size. No pericardial effusion. No hilar or mediastinal lymphadenopathy. No evidence of septal bowing or right heart strain. CORONARY ARTERY CALCIFICATION: None visualized on this study. CHEST WALL/AXILLA: No axillary or internal mammary lymphadenopathy. OSSEOUS STRUCTURES: No acute or suspicious osseous abnormality. UPPER ABDOMEN: Calcified gallstone is partially visualized . Spleen is enlarged measuring 13 cm. No reflux of contrast into the IVC veins suggesting elevated right heart pressures. CT/CT angio chest PE protocol IMPRESSION: 1. No evidence of pulmonary emboli. 2. Incidental note made of COPD, cholelithiasis and mild splenomegaly. VTE: negative.
--- NOTE | 2023-09-18 08:19 | ECG_ITS ---
Test Reason : CHEST PAIN Blood Pressure : / mmHG Vent. Rate : 067 BPM Atrial Rate : 067 BPM P-R Int : 134 ms QRS Dur : 086 ms QT Int : 388 ms P-R-T Axes : 078 072 053 degrees QTc Int : 409 ms Normal sinus rhythm Normal ECG No previous ECGs available Referred By: Generic ED Physician Electronically Signed By:TAYE RADFORD MD
[2023-09-18 08:46] LABS: MANUAL DIFF FLAG NO
[2023-09-18 08:50] LABS: Basophils Absolute Auto 0.1 X10*3/uL (0.0-0.2); Basophils Percent Auto 1.2 % (0-2); Eosinophils Absolute Auto 0.1 X10*3/uL (0.0-0.4); Eosinophils Percent Auto 2.9 % (0-4); Hematocrit 41.9 % (42.0-52.0); Hemoglobin 13.9 g/dl (14.0-18.0); Imm Gran Abs Auto 0.01 X10*3/uL (0.00-0.03); Imm Gran Pct Auto 0.2 % (0.0-0.4); Lymphocytes Absolute Auto 1.2 X10*3/uL (1.2-4.9); Lymphocytes Percent Auto 28.7 % (20-40); Mean Corpuscular HGB Conc 33.2 g/dl (31.0-36.0); Mean Corpuscular Hemoglobin 31.7 pg (27.0-33.0); Mean Corpuscular Volume 95.7 fL (80.0-98.0); Monocytes Absolute Auto 0.4 X10*3/uL (0.1-1.2); Monocytes Percent Auto 8.5 % (2-11); Neutrophils Absolute Auto 2.4 x10*3/uL (2.0-8.3); Neutrophils Percent Auto 58.5 % (45-73); Platelet Count 171 X10*3/uL (160-400); Red Blood Count 4.38 X10*6/uL (4.60-5.80); Red Cell Distribution Width 12.8 % (11.0-16.0); White Blood Count 4.1 X10*3/uL (4.8-10.8)
[2023-09-18 09:01] LABS: Anion Gap 13 (12-20); Blood Urea Nitrogen 15 mg/dL (9-16); Carbon Dioxide 23 mmol/L (22-29); Chloride 108 mmol/L (96-108); Estimated Glomerular Filt Rate > 60; Glucose Random 91 mg/dL (60-115); Sodium 140 mmol/L (135-145)
[2023-09-18 09:07] VITALS: BP 126/64; PULSE 70; RESP 16; TEMP 36.5; O2SAT 100; BMI 16.7
[2023-09-18 09:11] LABS: Troponin-I High Sensitivity < 2.7 ng/L (<3.5-35.0)
[2023-09-18 10:19] VITALS: BP 134/72; PULSE 71; RESP 16; O2SAT 94
--- NOTE | 2023-09-18 10:23 | ED.CHESTPAIN ---
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 now with chest pain and his is concerned about a PE complaint: chest pain Onset (ago): hour(s) Timing of current episode: constant Related Data Home Medications Medication Instructions Recorded Confirmed multivitamin-ferrous 1 tab PO DAILY 05/29/22 03/18/23 fumarate-folic acid 18 mg-400 mcg tablet (Centrum Complete) Previous Rx's Medication Instructions Recorded left above knee prosthesis #1 ea 06/11/22 Allergies Allergy/AdvReac Type Severity Reaction Status Date / Time No Known Allergies Allergy Verified 08/09/23 11:57 Review of Systems Review of Systems: Yes all other systems are reviewed and are negative Neurologic: Denies Sensory deficit (Neuro) PMFSH Past Medical History Onset Date is defined in the Problem List Problems that require an onset date and time if occurred within 24 hrs of arrival to the ED Aortic Dissection and Rupture; Neurologic impairment; Cardiopulmonary Arrest; Endotracheal Intubation; Insertion or Replacement of Mechanical Circulatory Assist Device Medical History Degenerative disc disease, cervical Surgical History 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 Family History Family History Mother Cancer Family history of cancer Mental health disorder Asthma Father High blood pressure Paternal Grandfather Aneurysm Brother Migraine Vertigo Social History Social History Housing: House Alcohol intake: former Patient Tobacco Use Status: Current everyday Tobacco user Tobacco use type: Cigar Cigarettes Per Day: 1 Smoked in Last 30 Days: No e-Cigarette/Vaping Use: Never Used Second Hand Smoke Exposure: No Use of substances other than those prescribed or required for medical reasons: Yes Substance Use Type: Marijuana Advance Directives: No service: No Current occupational status: disabled 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, 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 Cognitive needs: No Hearing needs: No Vision needs: No Physical Exam Vital Signs: Vital Signs: Last Vital Signs Temp 97.7 F 09/18/23 09:07 Pulse 71 09/18/23 10:19 Resp 16 09/18/23 10:19 BP 134/72 09/18/23 10:19 Pulse Ox 94 09/18/23 10:19 O2 Del Method Room Air 09/18/23 10:19 BMI result Body Mass Index 16.7 Const: General: healthy appearing Nutritional Appearance: average body habitus Orientation/consciousness: oriented to person and patient oriented x3 Limitations: no limitations HEENT: Head: Yes normal to inspection Ears: external ears normal General nose exam: Normal external nose present Mouth: Normal oral and palatal mucosa present and oropharynx normal Throat: Yes posterior oropharynx normal Eyes: General: appearance normal, both eyes and all related structures Neck: Other: supple Neck: Yes normal visual inspection Chest: Chest palpation & inspection: normal inspection of the chest Resp: Auscultation: clear to auscultation bilaterally Cardio: Jugular venous distension: no JVD Rate: regular rate Rhythm: regular rhythm Heart sounds: S1 normal heart sound present and S2 normal heart sound present GI: Inspection: Yes normal to inspection Palpation (GI): Soft to palpation, nontender and No hepatosplenomegaly present Auscultation: normal bowel sounds : General: Yes no CVA tenderness Back/Spine/Pelvis: Back: no CVA tenderness Skin: General skin exam: no rashes or lesions noted Neuro: General: oriented to person and patient oriented x3 Cranial nerves: Yes CN's II-XII intact bilaterally Motor exam (neuro): 5/5 motor strength present throughout Sensory Exam: No Sensory deficit (Neuro) Extrem: Other: 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 Psych: Appearance: grossly normal Course Reevaluation(s) Reevaluation #1: no evidence of cardiac ischemia, no PE on CT will dc home Time: 12:50 Medications Administered Discontinued Medications Generic Name Dose Route Start Last Admin Trade Name Freignacio PRN Reason Stop Dose Admin Iohexol 100 ml 09/18/23 10:58 09/18/23 10:59 Iohexol 350 Mg/Ml 100 Ml Infus..Btl IV 09/18/23 10:59 65 ml ONCE ONE Administration Medical Decision Making Differential Diagnosis Differential Diagnoses: The differential diagnosis associated with the presentation includes (ACS, STEMI, PE, pneumonia were all considered) Admission/Observation Consideration of admission/observation: Escalation of care including admission/observation considered (upon arrival patient was considered for admission) Lab Data 09/18/23 08:40 09/18/23 08:40 Labs: Lab Results 09/18/23 Range/Units 08:40 WBC 4.1 L (4.8-10.8) X10*3/uL RBC 4.38 L (4.60-5.80) X10*6/uL Hgb 13.9 L (14.0-18.0) g/dl Hct 41.9 L (42.0-52.0) % MCV 95.7 (80.0-98.0) fL MCH 31.7 (27.0-33.0) pg MCHC 33.2 (31.0-36.0) g/dl RDW 12.8 (11.0-16.0) % Plt Count 171 (160-400) X10*3/uL MPV 10.0 (9.4-12.4) fL Immature Gran % (Auto) 0.2 (0.0-0.4) % Neut % (Auto) 58.5 (45-73) % Lymph % (Auto) 28.7 (20-40) % Gage % (Auto) 8.5 (2-11) % Eos % (Auto) 2.9 (0-4) % Baso % (Auto) 1.2 (0-2) % Lymph # (Auto) 1.2 (1.2-4.9) X10*3/uL Gage # (Auto) 0.4 (0.1-1.2) X10*3/uL Eos # (Auto) 0.1 (0.0-0.4) X10*3/uL Baso # (Auto) 0.1 (0.0-0.2) X10*3/uL Abs Immat Gran (auto) 0.01 (0.00-0.03) X10*3/uL Absolute Neuts (auto) 2.4 (2.0-8.3) x10*3/uL Absolute Nucleated RBC 0.000 (0.0-0.012) X10*3/uL Nucleated RBC % (auto) 0.0 (0.0-0.2) /100WBC Sodium 140 (135-145) mmol/L Potassium 4.0 (3.3-5.1) mmol/L Chloride 108 (96-108) mmol/L Carbon Dioxide 23 (22-29) mmol/L Anion Gap 13 (12-20) BUN 15 (9-16) mg/dL Creatinine 0.80 (0.5-1.4) mg/dL Estim Creat Clear Calc TNP Estimated GFR > 60 Random Glucose 91 (60-115) mg/dL Calcium 9.0 (8.4-10.2) mg/dL Troponin I High Sens < 2.7 (<3.5-35.0) ng/L Independent Interpretation I performed an independent interpretation of an: EKG (sinus [address] or twave changes), Plain X-Ray (no infiltrate) and CT Scan (no infiltrate) Radiology Impression Discussion of test interpretation with radiology: I have reviewed the radiologist's reading. (CT of chest no evidence of PE) External Record Review External record reviewed: Outpatient record and Prior outpatient radiology Prescription Management I considered prescription management with: Antibiotic (no evidence of pneumonia on xray or ct) Chronic Conditions Patient?s care impacted by: Other (Genetic syndrome) Discharge Plan Discharge Clinical Impression: Chest pain Patient Disposition: Home, Self-Care Instructions: Chest Pain (ED) Prescriptions: No Action (DME) left above knee prosthesis See Rx Instructions .Route .MEDSUPPLY Qty: 1 0RF Rx Instructions: wear daily for AKA Centrum Complete 18-400 mg-mcg tablet 1 tab PO DAILY Referrals: Kodi Vega, [facility]K ADJUSTMENT SPECIALIST[facility] [Primary Care Provider] - 3 days
--- NOTE | 2023-09-18 10:39 | PC.NURSE ---
a&ox4. vss and up to date. nsr on the site monitor. pt presents to the ED w/ new left sided c/p that radiates to LUE that started this am. denies any nausea/vomiting/headache/any other sx. pt verbalizes chest pain is constant. pt has a hx of blood clot in LE. 18gIV placed in the right AC for CTA to be completed. no sob/wob noted. respirations even and unlabored. call flores placed within reach.
--- NOTE | 2023-09-18 10:49 | PC.NURSE ---
pt to CTA at this time.
[2023-09-18] MEDS: iohexoL 350 MG/ML 100 ML INFUS..BTL IV (10:59)
[2023-09-18 13:09] VITALS: BP 98/55; PULSE 56; RESP 16; O2SAT 97
[2023-09-18] MEDS: Ketorolac Tromethamine 30 MG/ML VIAL IVPUSH (13:09)
== END 2023-09-18 13:19 | disposition home or self-care (01) ==
PROVIDERS: Emergency Provider Emergency Medicine; PCP Nurse Practitioner Family
DX: R07.9 Chest pain, unspecified (principal); F17.200 Nicotine dependence, unspecified, uncomplicated; F12.90 Cannabis use, unspecified, uncomplicated
CPT/HCPCS: 36415; 71046; 71275; 80048; 84484; 85025; 93005; 96374; 99284; 99285; J1885; Q9967

== ENCOUNTER → 2023-09-18 08:19 | Outpatient (BNV) | payer MEDICAID, SELFPAY | PROVIDERS: Emergency Provider Emergency Medicine; PCP Nurse Practitioner Family; Visit Provider Internal Medicine Cardiovascular Disease | DX: R07.9 Chest pain, unspecified (principal) | CPT/HCPCS: 93010 ==

== ENCOUNTER 2023-09-20 13:00 | Outpatient (AMB) | payer MEDICAID, SELFPAY ==
[2023-09-20 13:06] VITALS: BP 120/70; PULSE 70; TEMP 36.6; O2SAT 98; BMI 16.7
--- NOTE | 2023-09-20 13:06 | AM.OFFWIN_ITS ---
Intake Vital Signs 09/20/23 13:06 Height 6 ft 2 in Weight 130 lb BMI 16.7 BP 120/70 Blood Pressure Location Rt brachial Position Sitting Pulse 70 Pulse Source Pulse Oximeter Temp 97.9 F Temp Source Temporal Artery Scan Pulse Oximetry (%) 98 Oxygen Delivery Method Room Air Intake Visit Reasons: EST/chest pain ongoing (lobby) Intake Note: pt is here chest pain ongoing, was evaluated at [facility] on saturday Patient Tobacco Use Status: Current everyday Tobacco user Allergies No Known Allergies Allergy (Verified 09/20/23 13:07) Do you need a note to return to daycare/school/sports/work: Yes HPI HPI Comments History of Present Illness Details This is a 37-year-old male who presented to the walk-in clinic complaining of chest pain. Patient states this has been ongoing for 2 days. He states the chest pain is left-sided. The chest pain was atraumatic; he woke up the pain 2 days ago. He states it is occasionally sharp/stabbing but occasionally a burning sensation. The pain does occasionally radiate into his left arm but it is more of a burning pain that radiates into his arm. The patient was evaluated at [facility] Emergency room on 09/18/2023. He underwent an extensive cardiac workup as well as a CTA chest, which was negative for evidence of acute cardiopulmonary process such as acute coronary syndrome or pulmonary embolism. He states this pain has persisted and he is requesting a work note as he had to call out of work today. He denies any associated shortness of breath, nausea/vomiting, or diaphoresis/crepitus. He denies any lower extremity edema. 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 Family History Mother Cancer Family history of cancer Mental health disorder Asthma Father High blood pressure Paternal Grandfather Aneurysm Brother Migraine Vertigo Social History Housing: House Alcohol intake: former Patient Tobacco Use Status: Current everyday Tobacco user Tobacco use type: Cigar Cigarettes Per Day: 1 e-Cigarette/Vaping Use: Never Used Second Hand Smoke Exposure: No Substance Use Type: Marijuana service: No Current occupational status: disabled 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, 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 Cognitive needs: No Hearing needs: No Vision needs: No Review of Systems Const All systems reviewed & are unremarkable except as noted in HPI and below Reports no additional complaints Eyes Reports no additional complaints ENT Reports no additional complaints Card Reports no additional complaints Resp Reports no additional complaints GI Reports no additional complaints Reports no additional complaints Musc Reports no additional complaints Skin/Breast Reports system reviewed and no additional complaints, except as documented Neuro Reports no additional complaints Psych Reports no additional complaints Endo Reports no additional complaints Cristiano/Lymph Reports no additional complaints Aller/Immun Reports no additional complaints Physical Exam Vital Signs: BMI result Body Mass Index 16.7 Const Other: Vital signs reviewed. Constitutional: Non-toxic appearing. No acute distress. Well-developed and well-nourished. HEENT: Normocephalic and atraumatic. Skin: Warm and dry. No rashes or lesions noted. Neck: Full and painless range of motion. No cervical lymphadenopathy. Cardio: Regular rate. No lower extremity edema. No JVD. Pulmonary: No respiratory distress. No accessory muscle usage. Gastrointestinal: Soft, nontender, and nondistended in all 4 quadrants. Musculoskeletal: Normal range of motion in joints throughout the body. No deformity or other signs of injury. Neuro: Alert and oriented x4. Cranial nerves 2-12 grossly intact. No focal deficits appreciated. Psych: Normal mood and affect. Assessment & Plan Assessment & Plan (1) Chest pain: Code(s): R07.9 - Chest pain, unspecified Qualifiers: Chest pain type: unspecified Qualified Code(s): R07.9 - Chest pain, unspecified Plan: This is a 37-year-old male who presented to the office complaining of persistent chest pain x2 days. The patient was evaluated in the emergency room on 09/18/2023 and underwent a cardiac workup as well as a CTA chest, which were negative for acute coronary syndrome or pulmonary embolism. The patient states that the chest pain has persisted and he was inquiring about what could possibly be the cause as he states the emergency room did not give him a real diagnosis. I explained to the patient that there are several benign causes of chest pain such as costochondritis versus precordial catch syndrome versus musculoskeletal etiology such as muscular sprain/strains or nerve impingement. The patient was reassured that his emergency room workup was negative for acute cardiopulmonary process such as acute coronary syndrome, pulmonary embolism, pneumothorax/pleural effusion. I offered the patient a repeat EKG for comparison; however, the patient declined at this time. The patient was given a work note and he was encouraged to make a follow-up appointment with his primary care physician regarding incidental findings in the emergency room including COPD, splenomegaly, and cholelithiasis. The patient verbalizes understanding and he is in agreement with the plan. Coding Level of Care Code Est Pt Level 3 (23960) Diagnoses Chest pain, unspecified type R07.9 Chest pain type: unspecified
== END 2023-09-20 14:08 | disposition home or self-care (01) ==
PROVIDERS: PCP Nurse Practitioner Family; Visit Provider Physician Assistant Medical
DX: R07.9 Chest pain, unspecified (principal)
CPT/HCPCS: 99213

== ENCOUNTER 2023-09-24 07:31 | Outpatient (AMB) | payer MEDICAID, SELFPAY ==
--- NOTE | 2023-09-24 07:33 | A.OFFPC_ITS ---
Vital Signs 09/24/23 07:36 Height 6 ft 2 in Weight 133 lb BMI 17.1 BP 114/70 Blood Pressure Location Rt brachial Position Sitting Pulse 78 Pulse Source Pulse Oximeter Pulse Oximetry (%) 97 Oxygen Delivery Method Room Air Intake Visit Reasons: F/U chest pain Intake Note: Patient here to follow up on walk in visit for chest pain. Patient states chest pain has been better over the weekend and he has not been working. Allergies No Known Allergies Allergy (Verified 09/24/23 07:39) Tobacco use date assessed: 09/24/23 Dental Screening Dental Screen Date: 09/24/23 Did you have a dental visit in the last 12 months?: Yes Did you have a dental problem in the last 6 months where you did not have access to dental care?: No Was dental information given to patient?: Patient has dentist HPI F/U chest pain HPI Details Pt was seen in the ER on 09/18 c/o chest pain. Pt has a hx of DVT due to his genetic condition. EKG showed no evidence of cardiac ischemia. Chest XR was negative. CTA was negative for PE. It did show incidental findings of COPD and splenomegaly. Pt was seen in the walk-in on 09/20 c/o ongoing chest pain. He refused a repeat EKG at the time. Provider explained to pt other possible benign causes of chest pain such as costochondritis versus precordial catch syndrome versus musculoskeletal etiology such as muscular sprain/strains or nerve impingement. Pt was reassured that his emergency room workup was negative for acute cardiopulmonary process such as acute coronary syndrome, pulmonary embolism, pneumothorax/pleural effusion. Pt reports that his chest pain is much better. Pt reports that he has quit smoking cigarettes in June, he still smokes marijuana. He reports intermittent shortness of breath, though he does not want any inhalers for this. Denies fever, chills, and dizziness. 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 Family History Mother Cancer Family history of cancer Mental health disorder Asthma Father High blood pressure Paternal Grandfather Aneurysm Brother Migraine Vertigo Social History Housing: House Alcohol intake: former Patient Tobacco Use Status: Current everyday Tobacco user Tobacco use type: Cigar Cigarettes Per Day: 1 e-Cigarette/Vaping Use: Never Used Second Hand Smoke Exposure: No Substance Use Type: Marijuana service: No Current occupational status: disabled 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 71106 - PHQ-9 Billing: Patient declined-do not bill Source: Developed by Drs. Niles Bobo, Kera Ryder, Kp Lanier and colleagues, with an educational demarcus from [employer]. Thrive Questionnaire Date Thrive assessed: 09/24/23 I am a: Patient What is your living situation today?: I have a steady place to live Within the past 12 months, did the food you bought not last and you didn't have the money to get more?: Never true Within the past 12 months, did you worry whether your food would run out before you got money to buy more?: Never true Do you have trouble paying for medicines?: No Do you have trouble getting transportation to medical appointments?: No Do you have trouble paying your heating and electricity bill?: No Do you have trouble taking care of your child, family member or friend?: No Do you have trouble with day-to-day activities such as bathing, preparing meals, shopping, managing finances, etc.?: No Are you currently unemployed and looking for a job?: No Are you interested in more education?: No Currently or been in a relationship where the following occur: I choose not to answer this question AUDIT C Alcohol Use Questionnaire (AUDIT-C) 1. How often do you have a drink containing alcohol?: Never 3. How often do you have six or more drinks on one occasion?: Never Total Score: 0 Score Reviewed/Action Taken: No ELCIEO-7 AMB Questionnaire ELICEO-7 Date ELICEO - 7 assessed: 09/24/23 Source: Developed by Kera Salmeron, Kp Mainnke and colleagues, with an educational demarcus from [employer]. ELICEO-7 Assessment Billing ELICEO-7 Assessment Tool: pt declined-do not bill Review of Systems Const Reports as per HPI Physical exam (Primary Care) Vital Signs: Last Vital Signs Pulse 78 09/24/23 07:36 BP 114/70 09/24/23 07:36 Pulse Ox 97 09/24/23 07:36 Oxygen Delivery Method Room Air 09/24/23 07:36 BMI result Body Mass Index 17.1 Tobacco/Smoking Status: Tobacco use Status Tobacco use date assessed 09/24/23 09/24/23 07:43 Patient Tobacco Use Status Current everyday Tobacco 09/24/23 07:35 Tobacco use type Cigar 09/24/23 07:35 e-Cigarette/Vaping Use Never Used 09/24/23 07:35 Thrive Assessment: Date of Thrive Assessment Date Thrive assessed 01/24/23 09/24/23 07:35 Currently or been in a relationship where the following occur: I choose not to answer this question Const General: cooperative Orientation/consciousness: patient oriented x3 Resp Effort & Inspection: normal respiratory effort Auscultation: clear to auscultation bilaterally Cardio Rate: regular rate Rhythm: regular rhythm Heart sounds: S1 normal heart sound present and S2 normal heart sound present Neuro General: patient oriented x3 Psych Appearance: grossly normal Mental Status: mental status grossly normal Speech and movement: Normal speech and movement present Affect: normal affect Attitude: cooperative Thought process: Normal thought process present Thought content: Normal thought content present Insight: Good insight present (Psych) Judgement: Good judgement present (Psych) Assessment and Plan Assessment & Plan (1) Chest discomfort: Code(s): R07.89 - Other chest pain Plan: pt will contact the office with CP Plan The patient agreed to the use of a medical staff coordinator for this encounter. Scribed for VERNELL Loera by Kristie Ray medical staff coordinator, on 09/24/2023 at 08:05 EST. Coding Level of Care Code Est Pt Level 3 (94405) Diagnoses Chest discomfort R07.89
[2023-09-24 07:36] VITALS: BP 114/70; PULSE 78; O2SAT 97; BMI 17.1
== END 2023-09-24 08:10 | disposition home or self-care (01) ==
PROVIDERS: PCP Nurse Practitioner Family; Visit Provider Nurse Practitioner Family
DX: R07.89 Other chest pain (principal)
CPT/HCPCS: 99213

== ENCOUNTER 2023-10-29 12:55 | Outpatient (AMB) | payer MEDICAID, SELFPAY ==
[2023-10-29 13:09] VITALS: BP 120/60; PULSE 85; TEMP 36.4; O2SAT 96; BMI 16.2
--- NOTE | 2023-10-29 13:09 | AM.OFFWIN_ITS ---
Intake Vital Signs 10/29/23 13:09 Height 6 ft 2 in Weight 126 lb BMI 16.2 BP 120/60 Blood Pressure Location Lt brachial Position Sitting Pulse 85 Pulse Source Pulse Oximeter Temp 97.6 F Temp Source Temporal Artery Scan Pulse Oximetry (%) 96 Oxygen Delivery Method Room Air Intake Visit Reasons: EP Headache, chills (masked) Intake Note: pt is here today for headache and chills started saturday Patient Tobacco Use Status: Current everyday Tobacco user Allergies No Known Allergies Allergy (Verified 10/29/23 13:49) Medication List - Last Reconciled 10/29/23 by HAWA Warren [left above knee prosthesis wear daily for AKA] albuterol sulfate 90 mcg/actuation 1 inh inhalation QID PRN apixaban (Eliquis) 2.5 mg PO BID apixaban (Eliquis) 5 mg PO BID azithromycin For 250 mg dose pack: take 500 mg today (day 1), then 250 mg for 4 days (days 2-5) PO prednisone 20 mg PO BID Do you need a note to return to daycare/school/sports/work: Yes HPI HPI Comments History of Present Illness Details Patient is a 37-year-old male in today for sick visit. He states that his father at home is sick with COVID. For the past 5 days he has had symptoms of headache, sore throat, cough, chest congestion. He has a past medical history significant for COPD, and blood clots for which he was taking Eliquis. He has taken [id number]-iorokvw medication with little effect. He states that he feels like he needs to bring up phlegm. Denies chest pain, shortness a breath, nausea, dizziness, numbness, vomiting, diarrhea. 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 Family History Mother Cancer Family history of cancer Mental health disorder Asthma Father High blood pressure Paternal Grandfather Aneurysm Brother Migraine Vertigo Social History Housing: House Alcohol intake: former Patient Tobacco Use Status: Current everyday Tobacco user Tobacco use type: Cigar Cigarettes Per Day: 1 e-Cigarette/Vaping Use: Never Used Second Hand Smoke Exposure: No Substance Use Type: Marijuana service: No Current occupational status: disabled 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 Eyes: No Eye Pain, No Swelling, No Redness Cardiovascular : No Chest Pain, No SOB, No Dyspnea on Exertion, No Orthopnea, No Edema, No Palpitations Respiratory : Admits Cough, Admits Sputum, No Wheezing Gastrointestinal : No Nausea, No Vomiting, No Diarrhea, No Constipation, No abdominal Pain, No Hematochezia, No Melena Neuro : No Weakness, No Numbness, No Dizziness, No Headache All other systems reviewed and are negative Physical Exam Vital Signs: Last Vital Signs Temp 97.6 F 10/29/23 13:09 Pulse 85 10/29/23 13:09 BP 120/60 10/29/23 13:09 Pulse Ox 96 10/29/23 13:09 Oxygen Delivery Method Room Air 10/29/23 13:09 BMI result Body Mass Index 16.2 Const Other: Appearance: Alert.? Oriented X3.? No acute distress.? Head: Normocephalic, atraumatic. Eyes: Pupils equal, round and reactive to light.? ENT: Pharynx erythema. TM intact and pearly romo. Neck: Normal inspection.? Neck supple.?Full ROM. CVS: Normal heart rate and rhythm.? Pulses normal.? Respiratory: No respiratory distress.? Breath sounds diminshed throughout bilatrally. ? Neuro: Oriented X 3.? No motor deficit.? No sensory deficit. CN 2-12 intact Assessment & Plan Assessment & Plan (1) Upper respiratory infection: Comment: Will call patient with upper respiratory swab results. Will give patient albuterol, prednisone, and azithromycin to be taken as directed. Patient has been educated on on the side effects of the medication. Code(s): J06.9 - Acute upper respiratory infection, unspecified Qualifiers: URI type: unspecified URI Qualified Code(s): J06.9 - Acute upper respiratory infection, unspecified Plan: Take your medications as prescribed. If you were prescribed antibiotics today, it is important that you take your medication to their entirety, do not skip any doses, do not finish them early. Follow-up with your primary care provider this week. Return to the emergency department with new or worsening symptoms. Such as fevers, chills, chest pain, shortness of breath, nausea, vomiting, dizziness, headache, vision changes, lethargy In case of emergency call 911 Plan Follow-up PCP. Orders: Orders SARS-CoV2/FLU/RSV Today J06.9 - Acute upper respiratory infection, unspecified Medications: New albuterol sulfate 90 mcg/actuation 1 inh inhalation QID PRN 6.7 grams 0RF shortness of breath or wheezing prednisone 20 mg PO BID 10 tabs 0RF azithromycin For 250 mg dose pack: take 500 mg today (day 1), then 250 mg for 4 days (days 2-5) PO 6 tabs 0RF Coding Level of Care Code Est Pt Level 3 (07545) Diagnoses Upper respiratory tract infection, unspecified type J06.9 URI type: unspecified URI Time Spent (min) 21
== END 2023-10-29 15:09 | disposition home or self-care (01) ==
PROVIDERS: PCP Nurse Practitioner Family; Visit Provider Nurse Practitioner Primary Care
DX: J06.9 Acute upper respiratory infection, unspecified (principal)
CPT/HCPCS: 99213

== ENCOUNTER 2023-10-29 16:44 | Outpatient (REF) | payer MEDICAID, SELFPAY ==
[2023-10-29 18:15] LABS: Influenza A PCR NEGATIVE (Negative); Influenza B PCR NEGATIVE (Negative); Resp Syncy Virus RNA Qual PCR NEGATIVE (Negative); SARS COV2 PCR INHOUSE NEGATIVE (Negative)
== END 2023-10-29 16:45 | disposition home or self-care (01) ==
LOC: HO.LNP 16:44
PROVIDERS: Visit Provider Nurse Practitioner Primary Care
DX: J06.9 Acute upper respiratory infection, unspecified (principal)
CPT/HCPCS: 0241U

== ENCOUNTER 2023-10-31 09:22 | Outpatient (AMB) | payer MEDICAID, SELFPAY ==
[2023-10-31 10:14] VITALS: BP 122/70; PULSE 74; TEMP 36.6; O2SAT 98; BMI 16.2
--- NOTE | 2023-10-31 10:14 | MHC.OFFWIV ---
Intake Vital Signs 10/31/23 10:14 Height 6 ft 2 in Weight 126 lb BMI 16.2 BP 122/70 Blood Pressure Location Lt brachial Position Sitting Pulse 74 Pulse Source Pulse Oximeter Temp 97.8 F Temp Source Temporal Artery Scan Pulse Oximetry (%) 98 Oxygen Delivery Method Room Air Intake Visit Reasons: EP headache dizziness sinus pain (In Car) Intake Note: pt is here today for headache dizziness sinus pain started Patient Tobacco Use Status: Current everyday Tobacco user Allergies No Known Allergies Allergy (Verified 10/31/23 10:14) Do you need a note to return to daycare/school/sports/work: Yes HPI HPI Comments History of Present Illness Details 37 y/o male patient who presents to walk in clinic with c/o URI symptoms. Pt was recently seen 10/29 for similar symptoms, SARs negative and given Zpack. Pt reports no much improvement. Lives home with father, who is positive with COVID infection. Denies fevers, chills,nausea or vomiting. Denies cough, chest pain, wheezing or SOB. [facility] Medical History (Updated 10/31/23 @ 10:43 by Radha Chiang NP) H/O splenomegaly COPD (chronic obstructive pulmonary disease) Degenerative disc disease, cervical Surgical History 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 Family History Mother Cancer Family history of cancer Mental health disorder Asthma Father High blood pressure Paternal Grandfather Aneurysm Brother Migraine Vertigo Social History Housing: House Alcohol intake: former Patient Tobacco Use Status: Current everyday Tobacco user Tobacco use type: Cigar Cigarettes Per Day: 1 e-Cigarette/Vaping Use: Never Used Second Hand Smoke Exposure: No Substance Use Type: Marijuana service: No Current occupational status: disabled 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, 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 Cognitive needs: No Hearing needs: No Vision needs: No Review of Systems Const All systems reviewed & are unremarkable except as noted in HPI and below Physical Exam Vital Signs: Last Vital Signs Temp 97.8 F 10/31/23 10:14 Pulse 74 10/31/23 10:14 BP 122/70 10/31/23 10:14 Pulse Ox 98 10/31/23 10:14 Oxygen Delivery Method Room Air 10/31/23 10:14 BMI result Body Mass Index 16.2 Const General: comfortable and no acute distress HEENT Head: Yes normocephalic and Yes atraumatic Ears: external ears normal and TM's normal bilaterally General nose exam: Normal nasal mucous membranes and turbinates present Face and sinus: Yes sinuses nontender Mouth: Normal oral and palatal mucosa present Throat: Yes posterior oropharynx normal Resp Effort & Inspection: normal respiratory effort and able to speak in complete sentences Auscultation: clear to auscultation bilaterally Cardio Rate: regular rate Rhythm: regular rhythm Assessment & Plan Assessment & Plan (1) Upper respiratory infection: Code(s): J06.9 - Acute upper respiratory infection, unspecified Qualifiers: URI type: unspecified URI Qualified Code(s): J06.9 - Acute upper respiratory infection, unspecified Plan: - Rest - Warm fluids - rep SARs - Acetaminophen for pain relief Orders: Orders SARS-CoV2/FLU/RSV Today J06.9 - Acute upper respiratory infection, unspecified Medications: New acetaminophen 1,000 mg (2 x 500 mg) PO Q6H PRN 30 caps 0RF pain (scale score 4-6) J06.9 - Acute upper respiratory infection, unspecified Coding Level of Care Code Est Pt Level 3 (58119) Diagnoses Upper respiratory tract infection, unspecified type J06.9 URI type: unspecified URI Time Spent (min) 15
== END 2023-10-31 10:52 | disposition home or self-care (01) ==
PROVIDERS: PCP Nurse Practitioner Family; Visit Provider Nurse Practitioner Family
DX: J06.9 Acute upper respiratory infection, unspecified (principal)
CPT/HCPCS: 99213

== ENCOUNTER 2023-10-31 10:44 | Outpatient (REF) | payer MEDICAID, SELFPAY ==
[2023-10-31 14:24] LABS: Influenza A PCR NEGATIVE (Negative); Influenza B PCR NEGATIVE (Negative); Resp Syncy Virus RNA Qual PCR NEGATIVE (Negative); SARS COV2 PCR INHOUSE POSITIVE (Negative)
== END 2023-10-31 10:45 | disposition home or self-care (01) ==
LOC: HO.LAB 10:44
PROVIDERS: Visit Provider Nurse Practitioner Family
DX: J06.9 Acute upper respiratory infection, unspecified (principal); Z11.52 Encounter for screening for COVID-19; Z20.828 Contact with and (suspected) exposure to other viral communicable diseases
CPT/HCPCS: 0241U

== ENCOUNTER 2024-02-05 11:08 | Outpatient (AMB) | payer MEDICAID, SELFPAY ==
[2024-02-05 11:26] VITALS: BP 126/72; PULSE 76; O2SAT 98; BMI 18.0
--- NOTE | 2024-02-05 11:26 | MHC.PC.OV ---
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 Allergies No Known Allergies Allergy (Verified 02/05/24 11:26) Medication List - Last Reconciled 02/05/24 by HAWA Warren [left above knee prosthesis wear daily for AKA] acetaminophen 1,000 mg (2 x 500 mg) PO Q6H PRN albuterol sulfate 90 mcg/actuation 1 inh inhalation QID PRN apixaban (Eliquis) 2.5 mg PO BID 30 days Tobacco use date assessed: 09/24/23 Dental Screening Dental Screen Date: 09/24/23 HPI HPI Comments History of Present Illness Details Patient is a 38-year-old male in today for a physical exam He has a past medical history significant for: Bilateral carpal tunnel syndrome-right hand/wrist. Has establish care with hand surgeon. [place] Syndrome- patient has referral to Hematology-Oncology. Has been on Eliquis for the past year was placed on that by vascular. 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 Patient has upcoming appointment next month with Hematology, will revisit need for continued Eliquis use. Left BKA PFSH Medical History H/O splenomegaly COPD (chronic obstructive pulmonary disease) Degenerative disc disease, cervical Surgical History 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 Family History Mother Cancer Family history of cancer Mental health disorder Asthma Father High blood pressure Paternal Grandfather Aneurysm Brother Migraine Vertigo Social History Housing: House Alcohol intake: former Patient Tobacco Use Status: Current everyday Tobacco user Tobacco use type: Cigar Cigarettes Per Day: 1 e-Cigarette/Vaping Use: Never Used Second Hand Smoke Exposure: No Substance Use Type: Marijuana service: No Current occupational status: disabled 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 Niles Bobo, Kera Ryder, Kp Lanier and colleagues, with an educational demarcus from [employer]. Review of Systems Const All systems reviewed & are unremarkable except as noted in HPI and below Physical exam (Primary Care) Care Plan Goal for BP management: Blood pressure controlled. Tobacco/Smoking Status: Tobacco use Status Tobacco use date assessed 09/24/23 01/30/24 11:12 Patient Tobacco Use Status Current everyday Tobacco 01/30/24 11:12 Tobacco use type Cigar 01/30/24 11:12 e-Cigarette/Vaping Use Never Used 01/30/24 11:12 Thrive Assessment: Date of Thrive Assessment Date Thrive assessed 09/24/23 01/30/24 11:12 Const Other: Appearance: Alert.? Oriented X3.? No acute distress.? Head: Normocephalic, atraumatic, no step-offs or deformities Eyes: Pupils equal, round and reactive to light.? ENT: Pharynx normal.?TM intact and pearly romo. Neck: Normal inspection.? Neck supple.? CVS: Normal heart rate and rhythm.? Pulses normal.? Respiratory: No respiratory distress.? Breath sounds normal.? Abdomen: Soft and nontender.? Skin: Skin warm and dry.? Normal skin color.? Normal skin turgor.? Extremities: No lower extremity edema.? No calf ttp. 5/5 strength to bilateral upper and lower extremities. + Bulging veins. Back: No midline tenderness, no C-spine tenderness, full range of motion, no CVA tenderness bilaterally Neuro: Oriented X 3.? No motor deficit.? No sensory deficit. CN 2-12 intact Assessment and Plan Assessment & Plan (1) Physical exam: Comment: Will draw labs. Code(s): Z00.00 - Encounter for general adult medical examination without abnormal findings (2) History of blood clots: Comment: Patient currently utilizing Eliquis. Has upcoming appointment with Hematology-Oncology. Has establish care with vascular. Code(s): Z86.718 - Personal history of other venous thrombosis and embolism (3) Right foot pain: Comment: From standing long hours. Patient will get referral to Podiatry. Patient has been instructed to utilize proper footwear Code(s): M79.671 - Pain in right foot Plan: draw labs Plan follow up in 6 months. Orders: Orders TSH reflex Free T4 Today Z13.29 - Encounter for screening for other suspected endocrine disorder Basic Metabolic Panel Today Z91.89 - Other specified personal risk factors, not elsewhere classified Complete Blood Count Auto Diff Today Z13.0 - Encounter for screening for diseases of the blood and blood-forming organs and certain disorders involving the immune mechanism Referrals Podiatry Referral M79.671 - Pain in right foot Coding Level of Care Code Est Pt Prev Care 18-39y(64121) Diagnoses Physical exam Z00.00 History of blood clots Z86.718 Right foot pain M79.671 Time Spent (min) 26
== END 2024-02-05 11:51 | disposition home or self-care (01) ==
PROVIDERS: PCP Nurse Practitioner Family; Visit Provider Nurse Practitioner Primary Care
DX: Z00.00 Encounter for general adult medical examination without abnormal findings (principal); Z86.718 Personal history of other venous thrombosis and embolism; M79.671 Pain in right foot
CPT/HCPCS: 99395

== ENCOUNTER 2024-02-05 11:53 | Outpatient (REF) | payer MEDICAID, SELFPAY ==
[2024-02-05 13:38] LABS: MANUAL DIFF FLAG NO
[2024-02-05 13:48] LABS: Basophils Percent Auto 0.7 % (0-2); Eosinophils Absolute Auto 0.1 X10*3/uL (0.0-0.4); Eosinophils Percent Auto 3.1 % (0-4); Hematocrit 43.4 % (42.0-52.0); Hemoglobin 14.7 g/dl (14.0-18.0); Imm Gran Abs Auto 0.02 X10*3/uL (0.00-0.03); Imm Gran Pct Auto 0.4 % (0.0-0.4); Lymphocytes Absolute Auto 1.1 X10*3/uL (1.2-4.9); Mean Corpuscular HGB Conc 33.9 g/dl (31.0-36.0); Mean Corpuscular Hemoglobin 32.7 pg (27.0-33.0); Mean Corpuscular Volume 96.7 fL (80.0-98.0); Mean Platelet Volume 10.8 fL (9.4-12.4); Monocytes Absolute Auto 0.3 X10*3/uL (0.1-1.2); Monocytes Percent Auto 6.9 % (2-11); Neutrophils Absolute Auto 2.9 x10*3/uL (2.0-8.3); Neutrophils Percent Auto 64.9 % (45-73); Platelet Count 183 X10*3/uL (160-400); Red Blood Count 4.49 X10*6/uL (4.60-5.80); Red Cell Distribution Width 13.2 % (11.0-16.0); White Blood Count 4.5 X10*3/uL (4.8-10.8)
[2024-02-05 14:03] LABS: Anion Gap 12 (12-20); Blood Urea Nitrogen 11 mg/dL (9-16); Calcium 9.1 mg/dL (8.4-10.2); Carbon Dioxide 25 mmol/L (22-29); Chloride 108 mmol/L (96-108); Estimated Glomerular Filt Rate > 60; Glucose Random 85 mg/dL (60-115); Sodium 141 mmol/L (135-145)
[2024-02-05 14:24] LABS: TSH reflex Free T4 2.16 uIU/mL (0.32-4.0)
== END 2024-02-05 11:54 | disposition home or self-care (01) ==
LOC: HO.HMGCLDS 11:53
PROVIDERS: PCP Nurse Practitioner Family; Visit Provider Nurse Practitioner Primary Care
DX: Z13.29 Encounter for screening for other suspected endocrine disorder (principal); Z13.0 Encounter for screening for diseases of the blood and blood-forming organs and certain disorders involving the immune mechanism; Z91.89 Other specified personal risk factors, not elsewhere classified
CPT/HCPCS: 36415; 80048; 84443; 85025

== ENCOUNTER 2024-03-17 14:05 | Outpatient (AMB) | payer OTHER, SELFPAY ==
--- NOTE | 2024-03-17 14:08 | AM.OFFWIN_ITS ---
Intake Vital Signs 03/17/24 14:09 Height 6 ft 2 in Weight 139 lb BMI 17.8 BP 102/66 Blood Pressure Location Lt brachial Position Sitting Pulse 87 Pulse Source Pulse Oximeter Temp 98.7 F Temp Source Oral Pulse Oximetry (%) 98 Oxygen Delivery Method Room Air Intake Visit Reasons: RT ear pain/ congestion about 9 days Intake Note: Pt is here for ear pain, congestion for about 9 days Patient Tobacco Use Status: Former Tobacco user Allergies No Known Allergies Allergy (Verified 03/17/24 14:10) Do you need a note to return to daycare/school/sports/work: No HPI HPI Comments History of Present Illness Details 38-year-old male presents today with rig ht ear pain and swelling of his tragus after traveling back from [place]. Denies any fever chills sweats sore throat cough shortness for breath PFSH Medical History H/O splenomegaly COPD (chronic obstructive pulmonary disease) Degenerative disc disease, cervical Surgical History 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 Family History Mother Cancer Family history of cancer Mental health disorder Asthma Father High blood pressure Paternal Grandfather Aneurysm Brother Migraine Vertigo Social History Housing: House Alcohol intake: former Patient Tobacco Use Status: Former Tobacco user Tobacco use type: Cigar Cigarettes Per Day: 1 e-Cigarette/Vaping Use: Never Used Second Hand Smoke Exposure: No Substance Use Type: Marijuana service: No Current occupational status: disabled 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, 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 Cognitive needs: No Hearing needs: No Vision needs: No Review of Systems Const All systems reviewed & are unremarkable except as noted in HPI and below Eyes Reports no additional complaints ENT Reports otalgia Card Reports no additional complaints Resp Reports no additional complaints GI Reports no additional complaints Reports no additional complaints Physical Exam Vital Signs: Last Vital Signs Temp 98.7 F 03/17/24 14:09 Pulse 87 03/17/24 14:09 BP 102/66 03/17/24 14:09 Pulse Ox 98 03/17/24 14:09 Oxygen Delivery Method Room Air 03/17/24 14:09 BMI result Body Mass Index 17.8 Const General: healthy appearing, no acute distress and well developed HEENT Head: Yes normal to inspection, Yes normocephalic and Yes atraumatic Ears: hearing grossly normal bilaterally, external ears normal, Abnormal EAC present (Tragus enlarged) edema and TM abnormal bulging and erythematous General nose exam: Normal external nose present Face and sinus: Yes normal facial exam Throat: Yes posterior oropharynx normal Resp Effort & Inspection: normal respiratory effort Auscultation: clear to auscultation bilaterally Cardio Rate: regular rate Rhythm: regular rhythm Heart sounds: S1 normal heart sound present and S2 normal heart sound present Assessment & Plan Assessment & Plan (1) Otitis media of right ear: Code(s): H66.91 - Otitis media, unspecified, right ear Plan: Antibiotic ordered and the patient will keep his ears clean and dry for the next 2 weeks (2) Otitis externa of right ear: Code(s): H60.91 - Unspecified otitis externa, right ear Plan: See plan Plan See plan Medications: New amoxicillin 875 mg PO BID 7 days 14 tabs 0RF ofloxacin 0.3% 10 drps otic (ear) right BID 14 days 10 mL 0RF Coding Level of Care Code Est Pt Level 3 (58805) Diagnoses Otitis media of right ear H66.91 Otitis externa of right ear H60.91
[2024-03-17 14:09] VITALS: BP 102/66; PULSE 87; TEMP 37.1; O2SAT 98; BMI 17.8
== END 2024-03-17 15:26 | disposition home or self-care (01) ==
PROVIDERS: PCP Nurse Practitioner Family; Visit Provider Physician Assistant Medical
DX: H66.91 Otitis media, unspecified, right ear (principal); H60.91 Unspecified otitis externa, right ear
CPT/HCPCS: 99213

== ENCOUNTER → 2024-03-20 14:00 | Outpatient (BNV) | payer OTHER, SELFPAY | PROVIDERS: PCP Nurse Practitioner Family; Referring Provider Nurse Practitioner Family; Visit Provider Internal Medicine | DX: Q87.2 Congenital malformation syndromes predominantly involving limbs (principal); I80.02 Phlebitis and thrombophlebitis of superficial vessels of left lower extremity; Z79.01 Long term (current) use of anticoagulants | CPT/HCPCS: 99204; 99212; 99213; G2211 ==

== ENCOUNTER 2024-03-26 14:23 | Emergency (ER) | payer OTHER, SELFPAY ==
--- NOTE | ~2024-03-26 | US_ITS ---
EXAMINATION: US VENOUS ULTRASOUND WITH DOPPLER LOWER EXTREMITY, BILATERAL CLINICAL INFORMATION: Bilateral lower extremity pain. History of DVT. COMPARISON: DVT ultrasound 01/28/2023 TECHNIQUE: Ultrasound of the deep veins is performed from the hip to the calf with compression sonography and color and pulse Doppler assessment. Spectral analysis with color-flow imaging is performed. FINDINGS: RIGHT: Occlusive thrombus in the mid right posterior tibial vein. Otherwise the veins of the right lower extremity are patent. LEFT: Status post left above-knee amputation. No left-sided DVT. US/US venous duplex LE BI IMPRESSION: Occlusive thrombus in the mid right posterior tibial vein. This Critical Result was discussed with Dr. Hernandez at 5:13 on 03/26/2024 and it was ascertained that the content and urgency of the report was understood at the time of direct communication.
[2024-03-26 14:25] VITALS: BP 135/81; PULSE 80; RESP 20; TEMP 36.4; O2SAT 98; BMI 18.1
--- NOTE | 2024-03-26 14:25 | ED.LOWEXIN ---
HPI - Extremity Injury (Lower) General Chief Complaint: General Medical Stated Complaint: Blood clot (?) R leg Time Seen by Provider: 03/26/24 16:59 History of Present Illness HPI Narrative: Patient is a 38-year-old male with a previous history of DVTs in the past. Got back from a 4-1/2 hour car trip. Subsequently complaining of pain to both legs. 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 Complaining of pain to both lower extremity. There is no fever no chills. There is no chest pain there is no diaphoresis. Patient is from home. No coughing or congestion or upper respiratory symptoms. Pain in the lower leg not associated with any trauma. Related Data Previous Rx's ?Medication ?Instructions ?Recorded left above knee prosthesis #1 ea 06/11/22 albuterol sulfate 90 mcg/actuation 1 inh inhalation QID PRN shortness 10/29/23 aerosol inhaler of breath or wheezing #6.7 grams amoxicillin 875 mg tablet 875 mg PO BID 7 days #14 tabs 03/17/24 ofloxacin 0.3 % ear drops 10 drp otic (ear) right BID 14 03/17/24 days #10 mL apixaban 5 mg (74 tabs) tablets in 5 mg PO BID #74 ea 03/26/24 a dose pack (Eliquis DVT-PE Treat 30D Start) Allergies Allergy/AdvReac Type Severity Reaction Status Date / Time No Known Allergies Allergy Verified 03/26/24 14:27 Review of Systems Review of Systems: Positive right leg pain Yes all other systems are reviewed and are negative PMFSH Past Medical History Attestation statement: The following information was validated with the patient. Medical History H/O splenomegaly COPD (chronic obstructive pulmonary disease) Degenerative disc disease, cervical Surgical History 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 Family History Family History Mother Cancer Family history of cancer Mental health disorder Asthma Father High blood pressure Paternal Grandfather Aneurysm Brother Migraine Vertigo Social History Social History Household Members: Family Housing: House Alcohol intake: never Patient Tobacco Use Status: Former Tobacco user Tobacco use type: Cigar Smoked in Last 30 Days: No e-Cigarette/Vaping Use: Never Used Second Hand Smoke Exposure: No Use of substances other than those prescribed or required for medical reasons: No Substance Use Type: Marijuana Advance Directives: No Advance Directives Information Provided: Yes service: No Current occupational status: disabled 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 Oriented X3. No acute distress. Eyes: Pupils equal, round and reactive to light. ENT: Pharynx normal. Neck: Normal inspection. Neck supple. No lymph nodes noted. No crepitus CVS: Normal heart rate and rhythm. Pulses normal. Normal S1 and S2 Respiratory: No respiratory distress. Breath sounds normal. No Wheezing. No rales Abdomen: Soft and nontender. No rigidity. No distention. good BS x4 Skin: Skin warm and dry. Normal skin color. Normal skin turgor. Extremities: Positive pain on palpation of the right calf area. Sensation grossly intact there is numerous varicose vein noted in the right leg. Distal pulses were 2+. Sensation over the foot intact. Plantar flexion dorsiflexion of the right lower extremity intact. On the left side there is a stump that is above the knee. There is no gross tenderness on palpation. Sensation over the stump intact. Neuro: Oriented X 3. No motor deficit. No sensory deficit. Moving all extermities. No slurred speech Course Course Course Narrative: This is a Rapid Medical Exam performed in triage by Liz Starr PA-C. Full HPI, ROS and PE to be performed by primary ED provider. 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 denies SOB, fever. Admits was previously on Eliquis, no longer on AC PE: + varicose veins appreciated, ambulating with limping gait Plan: Bilateral duplex ultrasound Medical Decision Making Medical Decision Making [facility] Narrative: Patient is 43 years old had a previous history of DVT in the past. Presents today with having leg pain. Ultrasound of the lower extremity showed a tibial vein DVT. No above the knee DVT was noted. Nevertheless given patient's history of DVTs in the past. History of congenital illness. Will go ahead and start patient on Eliquis. Have patient get a repeat ultrasound in 1 week. Close follow-up with patient's primary physician. Worsening condition return immediately. Patient needs to be aware that he needs to be very careful while he is on blood thinners. He is in no acute distress. Differential Diagnosis Differential Diagnoses: The differential diagnosis associated with the presentation includes DVT, varicose vein, musculoskeletal pain Admission/Observation Consideration of admission/observation: Escalation of care including admission/observation considered Lab Data [facility] Lab Attestation statement: I reviewed the patient's lab results. 03/26/24 16:45 03/26/24 16:45 Labs: Lab Results 03/26/24 Range/Units 16:45 WBC 5.5 (4.8-10.8) X10*3/uL RBC 4.72 (4.60-5.80) X10*6/uL Hgb 15.1 (14.0-18.0) g/dl Hct 44.5 (42.0-52.0) % MCV 94.3 (80.0-98.0) fL MCH 32.0 (27.0-33.0) pg MCHC 33.9 (31.0-36.0) g/dl RDW 12.6 (11.0-16.0) % Plt Count 173 (160-400) X10*3/uL MPV 9.5 (9.4-12.4) fL Immature Gran % (Auto) 0.4 (0.0-0.4) % Neut % (Auto) 64.6 (45-73) % Lymph % (Auto) 24.0 (20-40) % [place] % (Auto) 6.6 (2-11) % Eos % (Auto) 3.5 (0-4) % Baso % (Auto) 0.9 (0-2) % Lymph # (Auto) 1.3 (1.2-4.9) X10*3/uL [place] # (Auto) 0.4 (0.1-1.2) X10*3/uL Eos # (Auto) 0.2 (0.0-0.4) X10*3/uL Baso # (Auto) 0.1 (0.0-0.2) X10*3/uL Abs Immat Gran (auto) 0.02 (0.00-0.03) X10*3/uL Absolute Neuts (auto) 3.5 (2.0-8.3) x10*3/uL Absolute Nucleated RBC 0.000 (0.0-0.012) X10*3/uL Nucleated RBC % (auto) 0.0 (0.0-0.2) /100WBC PT 11.9 (11.1-13.3) SEC INR 1.0 (0.9-1.1) APTT 30.3 (26.0-36.8) SEC Sodium 141 (135-145) mmol/L Potassium 4.0 (3.3-5.1) mmol/L Chloride 104 (96-108) mmol/L Carbon Dioxide 27 (22-29) mmol/L Anion Gap 14 (12-20) BUN 12 (9-16) mg/dL Creatinine 0.86 (0.5-1.4) mg/dL Estim Creat Clear Calc 104.3 Estimated GFR > 60 Random Glucose 127 H (60-115) mg/dL Calcium 9.1 (8.4-10.2) mg/dL Radiology Impression Discussion of test interpretation with radiology: I have reviewed the radiologist's reading. External Record Review External record reviewed: Outpatient record Prescription Management A script for anticoagulation Eliquis was given Chronic Conditions History of congenital disorder history of DVT Discharge Plan Discharge Clinical Impression: Deep vein thrombosis Patient Disposition: Home, Self-Care Instructions: Deep Vein Thrombosis (ED) Additional Instructions: You have a blood clot in your right leg [id number]. An ultrasound is needed in 1 week to check on the progress of this blood clot. Please take a blood thinner. Please be very careful. If you fall or have any trauma please come back to the emergency department immediately. Please closely follow-up with your doctor. Prescriptions: New Earnest DVT-PE Treat 30D Start 5 mg (74 tabs) tablets,dose pack 5 mg PO BID Qty: 74 0RF Rx Instructions: Please take as per packaging direction No Action (DME) left above knee prosthesis See Rx Instructions .Route .MEDSUPPLY Qty: 1 0RF Rx Instructions: wear daily for AKA amoxicillin 875 mg tablet 875 mg PO BID 7 Days Qty: 14 0RF ofloxacin 0.3 % drops 10 drp otic (ear) right BID 14 Days Qty: 10 0RF albuterol sulfate 90 mcg/actuation HFA aerosol inhaler 1 inh inhalation QID PRN (Reason: shortness of breath or wheezing) Qty: 6.7 0RF Referrals: Kodi Vega, [facility] [Primary Care Provider] - (Please get repeat ultrasound done in 1 week) Print Language: Fijian
[2024-03-26 16:53] LABS: MANUAL DIFF FLAG NO
[2024-03-26 16:57] LABS: Basophils Absolute Auto 0.1 X10*3/uL (0.0-0.2); Basophils Percent Auto 0.9 % (0-2); Eosinophils Absolute Auto 0.2 X10*3/uL (0.0-0.4); Eosinophils Percent Auto 3.5 % (0-4); Hematocrit 44.5 % (42.0-52.0); Hemoglobin 15.1 g/dl (14.0-18.0); Imm Gran Abs Auto 0.02 X10*3/uL (0.00-0.03); Imm Gran Pct Auto 0.4 % (0.0-0.4); Lymphocytes Absolute Auto 1.3 X10*3/uL (1.2-4.9); Mean Corpuscular HGB Conc 33.9 g/dl (31.0-36.0); Mean Corpuscular Volume 94.3 fL (80.0-98.0); Mean Platelet Volume 9.5 fL (9.4-12.4); Monocytes Absolute Auto 0.4 X10*3/uL (0.1-1.2); Monocytes Percent Auto 6.6 % (2-11); Neutrophils Absolute Auto 3.5 x10*3/uL (2.0-8.3); Neutrophils Percent Auto 64.6 % (45-73); Platelet Count 173 X10*3/uL (160-400); Red Blood Count 4.72 X10*6/uL (4.60-5.80); Red Cell Distribution Width 12.6 % (11.0-16.0); White Blood Count 5.5 X10*3/uL (4.8-10.8)
[2024-03-26 17:07] LABS: Prothrombin Time 11.9 SEC (11.1-13.3)
--- NOTE | 2024-03-26 17:07 | PC.NURSE ---
Patient reports went on road trip that was 4 hours and felt like he now has DVTs in back of both thighs , reports pain at 10/10. Provider at bedside
[2024-03-26 17:10] LABS: Anion Gap 14 (12-20); Blood Urea Nitrogen 12 mg/dL (9-16); Calcium 9.1 mg/dL (8.4-10.2); Carbon Dioxide 27 mmol/L (22-29); Chloride 104 mmol/L (96-108); Creatinine Clr Calc Pharmacy 104.3; Estimated Glomerular Filt Rate > 60; Glucose Random 127 mg/dL (60-115); Partial Thromboplastin Time 30.3 SEC (26.0-36.8); Sodium 141 mmol/L (135-145)
[2024-03-26 17:33] VITALS: BP 125/69; PULSE 70; RESP 20; TEMP 37; O2SAT 99
[2024-03-26 19:07] VITALS: BP 125/69; PULSE 70; RESP 18; TEMP 37; O2SAT 99
== END 2024-03-26 19:08 | disposition home or self-care (01) ==
PROVIDERS: Physician Assistant; Emergency Provider Emergency Medicine Emergency Medical Services; PCP Nurse Practitioner Family
DX: I82.401 Acute embolism and thrombosis of unspecified deep veins of right lower extremity (principal); M79.662 Pain in left lower leg; M79.661 Pain in right lower leg; J44.9 Chronic obstructive pulmonary disease, unspecified; Z79.01 Long term (current) use of anticoagulants; Z79.899 Other long term (current) drug therapy; Z89.612 Acquired absence of left leg above knee
CPT/HCPCS: 36415; 80048; 85025; 85610; 85730; 93970; 99284

== ENCOUNTER 2024-03-27 12:32 | Emergency (ER) | payer OTHER, SELFPAY ==
[2024-03-27 12:43] VITALS: BP 118/91; PULSE 81; RESP 18; TEMP 36.6; O2SAT 98; BMI 18.0
--- NOTE | 2024-03-27 12:43 | ED_ITS ---
HPI - Extremity Injury (Lower) General Chief Complaint: Extremity Injury, Lower Stated Complaint: Pain R Leg ? DVT Time Seen by Provider: 03/27/24 12:50 Source: patient Mode of arrival: ambulatory Limitations: no limitations History of Present Illness HPI Narrative: Patient states that the pain in his right calf along the medial aspect it is worse than it was yesterday- reports currently 04/18, he reports that he received a call from the hospital today, he was advised if he was still having pain or if his pain was worse he should return for evaluation. He has not yet began taking his Eliquis, he states that he did not receive a message to his phone from the pharmacy that it was ready, did not contact the pharmacy to inquire on the status of his prescription margret. Denies chest pain, shortness of breath, swelling to the lower extremity.. Related Data Previous Rx's ?Medication ?Instructions ?Recorded left above knee prosthesis #1 ea 06/11/22 albuterol sulfate 90 mcg/actuation 1 inh inhalation QID PRN shortness 10/29/23 aerosol inhaler of breath or wheezing #6.7 grams amoxicillin 875 mg tablet 875 mg PO BID 7 days #14 tabs 03/17/24 ofloxacin 0.3 % ear drops 10 drp otic (ear) right BID 14 03/17/24 days #10 mL apixaban 5 mg (74 tabs) tablets in 5 mg PO BID #74 ea 03/26/24 a dose pack (Eliquis DVT-PE Treat 30D Start) Allergies Allergy/AdvReac Type Severity Reaction Status Date / Time No Known Allergies Allergy Verified 03/27/24 12:45 Review of Systems Review of Systems: Yes all other systems are reviewed and are negative PMFSH Past Medical History Attestation statement: The following information was validated with the patient. Source: old records reviewed Medical History H/O splenomegaly COPD (chronic obstructive pulmonary disease) Degenerative disc disease, cervical Surgical History 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 Family History Family History Mother Cancer Family history of cancer Mental health disorder Asthma Father High blood pressure Paternal Grandfather Aneurysm Brother Migraine Vertigo Social History Social History Household Members: Family Housing: House Alcohol intake: never Patient Tobacco Use Status: Former Tobacco user Tobacco use type: Cigar e-Cigarette/Vaping Use: Never Used Second Hand Smoke Exposure: No Substance Use Type: Marijuana Advance Directives: No Advance Directives Information Provided: No service: No Current occupational status: disabled 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 No acute distress.?Normal affect. Neck: Normal inspection.? Neck supple.?? CVS: Heart sounds normal. Normal heart rate and rhythm.? Pulses normal.?? Respiratory: No respiratory distress.? Lung sounds clear to auscultation bilaterally?? Abdomen: Soft and non-tender. Normoactive bowel sounds. Skin: Skin warm and dry.? Normal skin color.? Extremities: No lower extremity edema.? Pain upon palpation of the right calf. Numerous varicose veins of the right lower extremity. 2+ DP/PT pulses present on the right. LLE prosthesis Neuro: Moves all extremities spontaneously. Sensation intact bilaterally. . No focal neuro deficits. Ambulates with normal steady gait. Course Course Course Narrative: This is an RME performed by Katherine Ingram CNP: Additional HPI, ROS, PE not included below will be deferred to primary provider. Patient states that the pain in his right leg along the medial aspect it is worse than it was yesterday, as per his discharge instructions he returned for evaluation. He has not yet began taking his Eliquis, he states that he did not receive a message to his phone from the pharmacy that it was ready, did not contact the pharmacy to inquire on the status of his prescription filled. Denies chest pain, shortness of breath, increase swelling. Medications Administered Discontinued Medications Generic Name Dose Route Start Last Admin Trade Name Reinaldo PRN Reason Stop Dose Admin Acetaminophen 975 mg 03/27/24 12:55 03/27/24 13:04 Acetaminophen 325 Mg Tablet PO 03/27/24 12:56 975 mg ONCE ONE Administration Apixaban 10 mg 03/27/24 12:51 03/27/24 13:04 Apixaban 5 Mg Tablet PO 03/27/24 12:52 10 mg ONCE ONE Administration Medical Decision Making Medical Decision Making [facility] Narrative: Patient is a 38-year-old male with past medical history of Klippel-Trenaunay syndrome, DVT, LLE above knee amputation, L hand finger amputation, presenting to emergency department for pain to the right lower extremity. He was seen in the emergency department yesterday, had an ultrasound obtained which revealed an occlusive thrombus in leave mild right posterior tibial vein. A prescription for Eliquis was sent to his pharmacy which he has yet to pickling solution maker as per HPI. He was given his dose of Eliquis in the emergency department. He does admit to slight increase in pain when compared to yesterday, has not tried any conservative treatment or acetaminophen for pain management. His extremity remains neurovascularly intact distally, has no chest pain shortness of breath that would otherwise be concerning for PE. Has had ultrasound within the last 24 hours, have a lower concern for extension/propagation at this time, clinically do not see evidence to repeat ultrasound. This case was discussed with ED attending, Dr. Gricel dumas. This time he is stable for discharge home Differential Diagnosis Differential Diagnoses: The differential diagnosis associated with the presentation includes (DVT, varicose vein, muscular pain) External Record Review External record reviewed: Outpatient record Tests considered The following testing was considered but not selected: See narrative above Prescription Management I considered prescription management with: Other (See narrative above,) Discharge Plan Discharge Clinical Impression: DVT (deep venous thrombosis) Patient Disposition: Home, Self-Care Additional Instructions: Your pharmacy was called and confirmed that they did receive the prescription for Eliquis it has been filled in his ready for you to pickling solution maker. You received your dosage here today. You can take Tylenol 500 mg, 2 tablets (1,000mg) every 4-6 hours as needed for pain, but not to exceed 3 doses daily (3,000mg).? Please follow-up accordingly as previously instructed. Prescriptions: No Action (DME) left above knee prosthesis See Rx Instructions .Route .MEDSUPPLY Qty: 1 0RF Rx Instructions: wear daily for EVANGELISTA Tin[place] DVT-PE Treat 30D Start 5 mg (74 tabs) tablets,dose pack 5 mg PO BID Qty: 74 0RF Rx Instructions: Please take as per packaging direction amoxicillin 875 mg tablet 875 mg PO BID 7 Days Qty: 14 0RF ofloxacin 0.3 % drops 10 drp otic (ear) right BID 14 Days Qty: 10 0RF albuterol sulfate 90 mcg/actuation HFA aerosol inhaler 1 inh inhalation QID PRN (Reason: shortness of breath or wheezing) Qty: 6.7 0RF Referrals: Kodi Vega, [facility] [Primary Care Provider] - Interventions: ED Discharge Assessment Last Done: 03/27/24 13:12 Discharge Date/Time: 03/27/24 13:13 Print Language: Libyan
[2024-03-27] MEDS: Acetaminophen 325 MG TABLET 975 MG PO (13:04)
[2024-03-27] MEDS: Apixaban 5 MG TABLET 10 MG PO (13:04)
[2024-03-27 13:12] VITALS: BP 118/91; PULSE 81; RESP 18; TEMP 36.6; O2SAT 98
== END 2024-03-27 13:13 | disposition home or self-care (01) ==
PROVIDERS: Emergency Provider Student in an Organized Health Care Education/Training Program; PCP Nurse Practitioner Family
DX: I82.441 Acute embolism and thrombosis of right tibial vein (principal)
CPT/HCPCS: 99283

== ENCOUNTER 2024-03-31 08:34 | Outpatient (REF) | payer OTHER, SELFPAY ==
--- NOTE | ~2024-03-31 | US_ITS ---
EXAMINATION: US ABDOMEN COMPLETE CLINICAL INFORMATION: Splenomegaly? Liver disease? COMPARISON: CT abdomen and pelvis 10/22/2022. TECHNIQUE: Real-time imaging of the abdominal viscera. FINDINGS: PANCREAS: Normal. ABDOMINAL AORTA: The proximal, mid, and distal segments are normal in caliber. INFERIOR VENA CAVA: Visualized portions are normal. LIVER: The liver is normal in size. The liver contour is normal. Parenchymal echogenicity is normal. Within the upper aspect of the right hepatic lobe abutting the diaphragm there is a uniformly hyperechoic 2.6 x 2.6 x 1.6 cm structure which is suggestive of a hemangioma. More inferiorly within the right hepatic, adjacent to the ryan there is a 1.6 cm cystic structure with multiple internal septations which may represent a complex cyst. There is no intrahepatic biliary duct dilatation seen. There appears to be focal dilation of the portal vein at the ryan up to 3.5 cm. Over a length of approximately 4.5 cm. Proximal to this the portal vein measures on the order of 2.2 cm and distally measures approximately 1.7 cm. GALLBLADDER: The gallbladder is physiologically distended. There is at least one echogenic gallstone measures 1.1 cm. There is no pericholecystic fluid or wall thickening. The technologist does note the patient has some degree of tenderness over this region, though no definite sonographic Riojas sign. COMMON BILE DUCT: Normal in caliber measuring 0.3 cm in diameter. RIGHT KIDNEY: Normal. No hydronephrosis. No renal calculi or focal parenchymal lesions. The kidney measures 9.6 cm in maximum dimension. LEFT KIDNEY: Normal. No hydronephrosis. No renal calculi or focal parenchymal lesions. The kidney measures 10.8 cm in maximum dimension. SPLEEN: Normal. The spleen measures 9.7 cm in maximum dimension. FREE FLUID: None. 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 The significance and etiology of this finding is uncertain. Further evaluation with CT of the abdomen could be obtained for further evaluation. There is a probable hemangioma in the upper portion of the right hepatic lobe and adjacent to the ryan there is a probable complex hepatic cyst. Cholelithiasis.
== END 2024-03-31 08:35 | disposition home or self-care (01) ==
LOC: HO.HMGCX 08:34
PROVIDERS: PCP Nurse Practitioner Family; Visit Provider Internal Medicine
DX: Q87.2 Congenital malformation syndromes predominantly involving limbs (principal)
CPT/HCPCS: 76700

== ENCOUNTER 2024-04-14 08:05 | Outpatient (AMB) | payer OTHER, SELFPAY ==
[2024-04-14 08:07] VITALS: BP 120/62; PULSE 68; O2SAT 96; BMI 18.0
--- NOTE | 2024-04-14 08:07 | A.OFFPC_ITS ---
Vital Signs 04/14/24 08:07 Height 6 ft 2 in Weight 140 lb BMI 18.0 BP 120/62 Blood Pressure Location Lt brachial Position Sitting Pulse 68 Pulse Source Pulse Oximeter Pulse Oximetry (%) 96 Oxygen Delivery Method Room Air Intake Visit Reasons: ED f/u deep vein thrombosis Intake Note: pt is here for here for follow up from ED follow up for deep vein thrombosis. 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 US showed tibial vein DVT. Pt was started on eliquis. Pt returned to the ER on 03/27 with ongoing pain. He had not picked up his eliquis yet. Pt was starting on eliquis starter dose for DVT upon discharge. Pt was given a dose of eliquis in the ER. He reports taking his eliquis faithfully. He is following up with hematology in may. Today, Pt reports some chest pain to his left lower chest. Will order stat CTA to r/o PE. Will also repeat US next week to assess current DVT status. Denies fever, chills, and shortness of breath. He is not tachy nor desating. 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 Family History Mother Cancer Family history of cancer Mental health disorder Asthma Father High blood pressure Paternal Grandfather Aneurysm Brother Migraine Vertigo Social History Household Members: Family Housing: House Alcohol intake: never Patient Tobacco Use Status: Former Tobacco user Tobacco use type: Cigar e-Cigarette/Vaping Use: Never Used Second Hand Smoke Exposure: No Substance Use Type: Marijuana service: No Current occupational status: disabled 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 26896 - PHQ-9 Billing: Patient declined-do not bill Source: Developed by Drs. Niles Bobo, Kp Briceño and colleagues, with an educational demarcus from [employer]. Thrive Questionnaire Date Thrive assessed: 09/24/23 ELICEO-7 AMB Questionnaire ELICEO-7 Date ELICEO - 7 assessed: 09/24/23 Source: Developed by Drs. Niles Bobo, Kera Ryder, Kp Lanier and colleagues, with an educational demarcus from [employer]. ELICEO-7 Assessment Billing ELICEO-7 Assessment Tool: pt declined-do not bill Review of Systems Const Reports as per HPI Physical exam (Primary Care) Vital Signs: Last Vital Signs Pulse 68 04/14/24 08:07 BP 120/62 04/14/24 08:07 Pulse Ox 96 04/14/24 08:07 Oxygen Delivery Method Room Air 04/14/24 08:07 BMI result Body Mass Index 18.0 Tobacco/Smoking Status: Tobacco use Status Tobacco use date assessed 09/24/23 04/14/24 08:14 Patient Tobacco Use Status Former Tobacco user 04/14/24 08:14 Tobacco use type Cigar 04/14/24 08:14 e-Cigarette/Vaping Use Never Used 04/14/24 08:14 Thrive Assessment: Date of Thrive Assessment Date Thrive assessed 09/24/23 04/14/24 08:14 Const General: cooperative Orientation/consciousness: patient oriented x3 Resp Effort & Inspection: normal respiratory effort Auscultation: clear to auscultation bilaterally Cardio Rate: regular rate Rhythm: regular rhythm Heart sounds: S1 normal heart sound present and S2 normal heart sound present Neuro General: patient oriented x3 Extrem Other: significant nodular varicosities to RLE, no calf warmth or tenderness Psych Appearance: grossly normal Mental Status: mental status grossly normal Speech and movement: Normal speech and movement present Affect: normal affect Attitude: cooperative Thought process: Normal thought process present Thought content: Normal thought content present Insight: Good insight present (Psych) Judgement: Good judgement present (Psych) Assessment and Plan Assessment & Plan (1) Chest discomfort: Code(s): R07.89 - Other chest pain Plan: CTA ordered (2) Deep vein thrombosis: Code(s): I82.409 - Acute embolism and thrombosis of unspecified deep veins of unspecified lower extremity Plan: CTA ordered for stat, US ordered for next week (3) Chest pain: Code(s): R07.9 - Chest pain, unspecified Plan: CTA ordered Plan The patient agreed to the use of a emergency medical service manager for this encounter. Scribed for HAWA Loera-DEEPA by Kristie Ray emergency medical service manager, on 04/14/2024 at 08:25 EST. Orders: Orders US venous duplex LE RT 1 Week I82.409 - Acute embolism and thrombosis of unspecified deep veins of unspecified lower extremity Comprehensive Met. Panel Today R07.9 - Chest pain, unspecified CT angio chest PE protocol Today I82.409 - Acute embolism and thrombosis of unspecified deep veins of unspecified lower extremity, R07.89 - Other chest pain Coding Level of Care Code Est Pt Level 3 (19138) Diagnoses Chest discomfort R07.89 Deep vein thrombosis I82.409 Chest pain R07.9
== END 2024-04-14 10:43 | disposition home or self-care (01) ==
PROVIDERS: PCP Nurse Practitioner Family; Visit Provider Nurse Practitioner Family
DX: R07.89 Other chest pain (principal); I82.409 Acute embolism and thrombosis of unspecified deep veins of unspecified lower extremity; R07.9 Chest pain, unspecified
CPT/HCPCS: 99213

== ENCOUNTER 2024-04-14 08:42 | Outpatient (REF) | payer OTHER, SELFPAY ==
[2024-04-14 11:23] LABS: Alanine Aminotransferase 30 U/L (0-40); Albumin Level 4.3 g/dL (3.5-5.0); Alkaline Phosphatase 69 U/L (39-117); Anion Gap 13 (12-20); Aspartate Amino Transferase 21 U/L (5-37); Bilirubin Total 1.5 mg/dL (0.0-1.0); Blood Urea Nitrogen 13 mg/dL (9-16); Calcium 9.1 mg/dL (8.4-10.2); Carbon Dioxide 31 mmol/L (22-29); Chloride 100 mmol/L (96-108); Estimated Glomerular Filt Rate > 60; Glucose Random 93 mg/dL (60-115); Potassium 3.8 mmol/L (3.3-5.1); Sodium 140 mmol/L (135-145); Total Protein 6.6 g/dL (6.5-8.0)
== END 2024-04-14 08:43 | disposition home or self-care (01) ==
LOC: HO.HMGCLDS 08:42
PROVIDERS: PCP Nurse Practitioner Family; Visit Provider Nurse Practitioner Family
DX: R07.9 Chest pain, unspecified (principal)
CPT/HCPCS: 36415; 80053

== ENCOUNTER 2024-04-14 10:17 | Outpatient (REF) | payer OTHER, SELFPAY ==
--- NOTE | ~2024-04-14 | CT_ITS ---
EXAMINATION: CT ANGIOGRAM OF THE CHEST WITH AND WITHOUT CONTRAST (CT PULMONARY ANGIOGRAM FOR PE) CLINICAL INFORMATION: Reason for Exam R07.89 - Other chest pain COMPARISON: CT PE study 09/18/2023 TECHNIQUE: Prior to contrast administration, noncontrast localization images were obtained. Subsequently, multidetector volumetric imaging was performed from the thoracic inlet to below the diaphragms following the administration of 65 mL Omnipaque 350 intravenous contrast. No contrast reaction reported Sagittal, coronal, and MIP oblique sagittal reformatted images were obtained on the CT workstation, uploaded to PACS, and reviewed. This CT examination was performed using dose optimization techniques as appropriate, variously including the following: *Automated exposure control *Adjustment of mA and/or kV according to patient size (this includes techniques or standardized protocols for targeted exams where dose is matched to indication/reason for exam; i.e. extremities or head) *Use of iterative reconstruction technique Total exam dose-length product 90 mGy-cm FINDINGS: QUALITY OF STUDY/CONTRAST BOLUS: Satisfactory. PULMONARY ARTERIES: No pulmonary emboli. THORACIC AORTA: No aneurysm. LUNG: Bronchial thickening is present. Emphysematous changes are seen with most marked bullous formation at the left lung base medially. A few scattered punctate calcified granulomas are present in the right lower lobe and right middle lobe. No focal consolidation, worrisome nodules or masses. PLEURA: No pleural effusion or pneumothorax. MEDIASTINUM: Normal heart size. No pericardial effusion. No hilar or mediastinal lymphadenopathy. No evidence of septal bowing or right heart strain. CORONARY ARTERY CALCIFICATION: None visualized on this study. CHEST WALL/AXILLA: No axillary or internal mammary lymphadenopathy. OSSEOUS STRUCTURES: No acute or suspicious osseous abnormality. UPPER ABDOMEN: Unremarkable. No reflux of contrast into the hepatic veins to suggest elevated right heart pressures. CT/CT angio chest PE protocol IMPRESSION: 1. No evidence of pulmonary emboli. 2. COPD with emphysema and bronchial thickening. VTE: negative.
[2024-04-14] MEDS: iohexoL 350 MG/ML 100 ML INFUS..BTL 65 ML IV (11:15)
== END 2024-04-14 10:18 | disposition home or self-care (01) ==
LOC: HO.CT 10:17
PROVIDERS: PCP Nurse Practitioner Family; Visit Provider Nurse Practitioner Family
DX: R07.89 Other chest pain (principal); Z86.718 Personal history of other venous thrombosis and embolism
CPT/HCPCS: 71275; Q9967

== ENCOUNTER 2024-05-06 08:40 | Outpatient (REF) | payer OTHER, SELFPAY ==
--- NOTE | ~2024-05-06 | US_ITS ---
EXAMINATION: US TRIPLEX LOWER EXTREMITY, RIGHT CLINICAL INFORMATION: Swelling COMPARISON: None available. TECHNIQUE: Color-flow triplex imaging with spectral analysis and compression Doppler were performed on the right lower extremity. FINDINGS: Respiratory variation, normal compression and augmented flow are noted throughout the right lower extremity. The visualized common femoral vein, superficial femoral vein, profunda femoral vein, popliteal vein and midcalf peroneal and posterior tibial venous segments show no evidence of deep venous thrombosis. There is no Collier's cyst. US/US venous duplex LE RT IMPRESSION: No evidence of deep venous thrombosis involving the right lower extremity. Electronically signed by: Godwin Figueroa MD 05/06/2024 09:37 AM EDT
== END 2024-05-06 08:41 | disposition home or self-care (01) ==
LOC: HO.US 08:40
PROVIDERS: PCP Nurse Practitioner Family; Visit Provider Nurse Practitioner Family
DX: I82.401 Acute embolism and thrombosis of unspecified deep veins of right lower extremity (principal)
CPT/HCPCS: 93971

== ENCOUNTER 2024-07-30 08:03 | Outpatient (AMB) | payer OTHER, SELFPAY ==
[2024-07-30 08:18] VITALS: BP 110/80; PULSE 80; O2SAT 97; BMI 17.8
--- NOTE | 2024-07-30 08:18 | MHC.PC.OV ---
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 He needs a refill of eliquis, which i will refill today. Back in may he followed up with his stock patcher, continuing eliquis for now, though pt was further referred to [place] for their input due to KTS as well. Pt reports having this appt scheduled. Pt denies any recent RLE swelling. GERD: for weeks now, espeically with drinking any soda. explained importance of diet relating to his symptoms. starting a PPI. anxiety: denies any CP, SOB, SI or HI. 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 Family History Mother Cancer Family history of cancer Mental health disorder Asthma Father High blood pressure Paternal Grandfather Aneurysm Brother Migraine Vertigo Social History Household Members: Family Housing: House Alcohol intake: never Patient Tobacco Use Status: Former Tobacco user Tobacco use type: Cigar e-Cigarette/Vaping Use: Never Used Second Hand Smoke Exposure: No Substance Use Type: Marijuana service: No Current occupational status: disabled 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 1. Little interest or pleasure in doing things: more than half the days 2. Feeling down, depressed, or hopeless: several days 3. Trouble falling or staying asleep, or sleeping too much: nearly every day 4. Feeling tired or having little energy: several days 5. Poor appetite or overeating: several days 6. Feeling bad about yourself - or that you are a failure or have let yourself or your family down: more than half the days 7. Trouble concentrating on things, such as reading the newspaper or watching television: not at all 8. Moving or speaking so slowly that other people could have noticed. Or the opposite - being so fidgety or restless that you have been moving around a lot more than usual: not at all 9. Thoughts that you would be better off or of hurting yourself in some way: not at all Total score: 10 Depression Screening Interpretation: Positive Depression Screening Done: Yes 28768 - PHQ-9 Billing: Yes Source: Developed by Drs. Niles Bobo, Kera Ryder, Kp Lanier and colleagues, with an educational demarcus from [employer]. Thrive Questionnaire Date Thrive assessed: 07/30/24 I am a: Patient What is your living situation today?: I have a steady place to live Within the past 12 months, did the food you bought not last and you didn't have the money to get more?: I choose not to answer this question Within the past 12 months, did you worry whether your food would run out before you got money to buy more?: I choose not to answer this question Do you have trouble paying for medicines?: No Do you have trouble getting transportation to medical appointments?: No Do you have trouble paying your heating and electricity bill?: No Do you have trouble taking care of your child, family member or friend?: No Do you have trouble with day-to-day activities such as bathing, preparing meals, shopping, managing finances, etc.?: No Are you currently unemployed and looking for a job?: Yes Are you interested in more education?: No Please select the resources that you would like help with: None Currently or been in a relationship where the following occur: No concerns reported THRIVE Score: 0 AUDIT C Alcohol Use Questionnaire (AUDIT-C) 1. How often do you have a drink containing alcohol?: Never 3. How often do you have six or more drinks on one occasion?: Never Total Score: 0 Score Reviewed/Action Taken: Yes ELICOE-7 AMB Questionnaire ELICEO-7 Date ELICEO - 7 assessed: 07/30/24 Feeling nervous, anxious, or on edge: 3 = Nearly every day Not being able to stop or control worryin = More than half the days Worrying too much about different things: 2 = More than half the days Trouble relaxin = More than half the days Being so restless that it is hard to sit still: 2 = More than half the days Becoming easily annoyed or irritable: 1 = Several days Feeling afraid as if something awful might happen: 0 = Not at all Total ELICEO-7 score (0-4 normal; 5-9 mild; 10-14 moderate; 15-21 severe): 12 Source: Developed by Drs. Niles Bobo, Kera Ryder, Kp Lanier and colleagues, with an educational demarcus from [employer]. ELICEO-7 Assessment Billing ELICEO-7 Assessment Tool: ELICEO-7 Assessment 18112 Physical exam (Primary Care) Vital Signs: Last Vital Signs Pulse 80 07/30/24 08:18 BP 110/80 07/30/24 08:18 Pulse Ox 97 07/30/24 08:18 Oxygen Delivery Method Room Air 07/30/24 08:18 BMI result Body Mass Index 17.8 Tobacco/Smoking Status: Tobacco use Status Tobacco use date assessed 09/24/23 07/30/24 08:20 Patient Tobacco Use Status Former Tobacco user 07/30/24 08:20 Tobacco use type Cigar 07/30/24 08:20 e-Cigarette/Vaping Use Never Used 07/30/24 08:20 PHQ-9: PHQ-9 Score PHQ-9: Total score 10 07/30/24 08:27 Depression Screening Interpretation: Positive Thrive Assessment: Date of Thrive Assessment Date Thrive assessed 07/30/24 07/30/24 08:20 Currently or been in a relationship where the following occur: No concerns reported Const General: cooperative, comfortable and no acute distress Resp Effort & Inspection: normal respiratory effort Auscultation: clear to auscultation bilaterally Cardio Rate: regular rate Rhythm: regular rhythm Heart sounds: S1 normal heart sound present, S2 normal heart sound present and no murmurs Skin Other: prosthetic to LLE. 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 Moderate anxiety F41.9 Additional Codes ELICEO-7 Assessment Billing - ELICEO-7 Assessment Tool: ELICEO-7 Assessment 18683 ([id number]) PHQ-9 - 28045 - PHQ-9 Billing: Yes ([id number]) Assessment & Plan Assessment & Plan (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
== END 2024-07-30 10:57 | disposition home or self-care (01) ==
PROVIDERS: PCP Nurse Practitioner Family; Visit Provider Nurse Practitioner Family
DX: Q87.2 Congenital malformation syndromes predominantly involving limbs (principal); F41.9 Anxiety disorder, unspecified

== ENCOUNTER → 2024-07-30 08:03 | Outpatient (BNVA) | payer OTHER, SELFPAY | PROVIDERS: PCP Nurse Practitioner Family; Visit Provider Nurse Practitioner Family | DX: Q87.2 Congenital malformation syndromes predominantly involving limbs (principal); F41.9 Anxiety disorder, unspecified | CPT/HCPCS: 96127; 99212 ==

== ENCOUNTER 2025-01-11 11:12 | Outpatient (AMB) | payer OTHER, SELFPAY ==
[2025-01-11 12:59] VITALS: BP 116/78; PULSE 96; O2SAT 96
--- NOTE | 2025-01-11 12:59 | MHC.OFFWIV ---
Intake Vital Signs 01/11/25 12:59 Weight 140 lb BP 116/78 Blood Pressure Location Lt brachial Position Sitting Pulse 96 Pulse Source Pulse Oximeter Pulse Oximetry (%) 96 Oxygen Delivery Method Room Air Intake Visit Reasons: EP Spots on the back itching & burning Intake Note: Patient here for brown spots on back that are itching that has been present for a while now. Patient Tobacco Use Status: Former Tobacco user Allergies No Known Allergies Allergy (Verified 01/11/25 13:05) Do you need a note to return to daycare/school/sports/work: No HPI HPI Comments History of Present Illness Details The patient is a 39-year-old male presenting with concerns regarding the appearance of multiple brown hyperpigmented spots and a persistent red lesion. The red lesion has been stable yet symptomatic for years, with pruritus and a burning sensation. The patient notes recent changes in skin pigmentation likely due to a history of extensive sun exposure while working outdoors in [place]. 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 The patient also has a history of deep vein thrombosis and is currently on Eliquis for anticoagulation. He is concerned about the ongoing need for anticoagulation and adherence challenges, emphasizing the balance between the risk of further thrombotic events and managing medication schedules. He recalls multiple thrombotic events during periods of prolonged immobility or long trips, supporting continued prophylactic anticoagulation therapy. - Onset: Lesion-specific pruritus and burning for several years; hyperpigmented spots appeared recently. - Quality/Character: Red lesion characterized by pruritus and burning sensation; hyperpigmented spots vary in color intensity. - Primary Location: Red lesion is notable but not confined to a single region; hyperpigmented spots diffuse. - Exacerbating/Relieving Factors: Outdoor exposure possibly exacerbates pigmentation changes; no alleviating factors specified for red lesion pain. - Impact on Activities: Potential cosmetic and sensory discomfort affecting emotional well-being. - Affect: Patient expresses concern over continuous skin discomfort and adherence to medication due to psychological impact. - Analgesia: Currently on Eliquis for anticoagulation, no specific analgesia reported for skin lesions. - Adverse Effects: No specific adverse events associated with pain medication discussed. - Activities of Daily Living: Challenges in daily adherence to anticoagulation therapy. - Aberrant Drug Related Behaviors: No indications of misuse of medications. 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 Family History Mother Cancer Family history of cancer Mental health disorder Asthma Father High blood pressure Paternal Grandfather Aneurysm Brother Migraine Vertigo Social History Household Members: Family Housing: House Alcohol intake: never Patient Tobacco Use Status: Former Tobacco user Tobacco use type: Cigar e-Cigarette/Vaping Use: Never Used Second Hand Smoke Exposure: No Substance Use Type: Marijuana service: No Current occupational status: disabled 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 - Vascular: Reports history of deep vein thrombosis. - Musculoskeletal: History of left leg amputation and multiple surgeries. - Hematologic: Reports venous thrombotic history requiring anticoagulation (Eliquis). - General: Denies specific new acute symptoms apart from primary concerns. Physical Exam General: awake, alert, oriented. Answers questions appropriately. Fully engaged in examination. Skin: warm, dry, intact. Numerous epidermal nevi noted to back and chest. HEENT: Normocephalic. Hearing intact. Cardiac: External chest normal in appearance. Respiratory: No cough, audible wheezing or stridor. Speaking in full sentences. No angio or periorbital edema noted Abdomen: without gross distension. MS: No obvious swelling or deformities. Neurological: Oriented to person, place, time and situation. Thought process intact. No gait abnormalities appreciated. Psychiatric: Appropriate mood and affect. Good judgment and insight. Assessment & Plan Assessment & Plan (1) Epidermal nevus: Code(s): D23.9 - Other benign neoplasm of skin, unspecified Plan The patient will be referred to dermatology for a thorough skin evaluation, possibly including biopsy, due to hyperpigmentation and a persistent red lesion. This is pertinent considering his background of atypical pigmentary changes most likely related to Klippel-Trenaunay Syndrome however potentially linked to extensive sun exposure. Dermatology can provide a targeted evaluation of current lesions. Regarding anticoagulation, it is recommended to continue on Eliquis due to the patient?s history of recurrent thrombosis, with regular follow-ups to reassess the necessity of anticoagulation therapy and discuss potential modifications under appropriate guidance with prescriber. I discussed with the patient the possibility of skin changes due to Klippel-Trenaunay Syndrome and sun exposure and the necessity of a dermatology referral for further assessment and management of his hyperpigmented lesions and chronic red lesion. I emphasized the importance of ruling out any malignancy and obtaining appropriate treatment. The patient will be informed about a dermatology appointment set up, where he'll receive further evaluation and information on skin care strategies. Regarding anticoagulation therapy, the patient was advised on the increased risk of venous thromboembolism if Eliquis is discontinued, highlighted the critical nature of adherence to prevent serious complications, including DVT, pulmonary embolism, stroke or heart attack. Follow-up recommendations include potential examination by a personal attendant or vascular specialist to explore alternatives, such as transitioning to alternative medications as patient is finding it difficult to adhere to twice daily dosing of his Eliquis. Patient was informed and verbally consented to the use of an ambient scribe for clinic note documentation during this visit. Orders: Referrals Dermatology Referral D23.9 - Other benign neoplasm of skin, unspecified, R21 - Rash and other nonspecific skin eruption Patient Instructions: - Follow up with dermatology as soon as they contact you for a detailed skin examination. - Continue taking Eliquis (apixaban) as prescribed to avoid potential thrombotic events. - Maintain routine with medication and adhere to the twice-daily dosing schedule. - Stay alert to any changes in skin lesions or new symptoms and report them immediately. - Schedule follow-up consultations for anticoagulation management and any new developments. - Practice sun protection measures, like using sunscreen, when outdoors to minimize future skin changes. Coding Level of Care Code Est Pt Level 3 (30337) Diagnoses Epidermal nevus D23.9
== END 2025-01-11 14:17 | disposition home or self-care (01) ==
PROVIDERS: PCP Nurse Practitioner Family; Visit Provider Registered Nurse Emergency
DX: D23.9 Other benign neoplasm of skin, unspecified (principal)
CPT/HCPCS: 99213

== ENCOUNTER → 2025-01-11 11:12 | Outpatient (BNVA) | payer OTHER, SELFPAY | PROVIDERS: PCP Nurse Practitioner Family; Visit Provider Registered Nurse Emergency | DX: D23.9 Other benign neoplasm of skin, unspecified (principal); R21 Rash and other nonspecific skin eruption; Z79.01 Long term (current) use of anticoagulants; Z86.718 Personal history of other venous thrombosis and embolism | CPT/HCPCS: 99212 ==

== ENCOUNTER 2025-02-02 11:40 | Outpatient (REF) | payer OTHER, SELFPAY ==
--- OUTSIDE RECORDS SUMMARY | 2025-02-02 12:18 | XMS_ITS | Patient Health Record ---
Author Organization [facility] Address [address] [place] [address] Care Team Providers Care Linseed Oil Boiler Name Role Phone Shavonne Hernandez Unavailable [phone] Reason For Referral No Information Problems Problem Type SNOMED Code ICD Code Onset Dates Problem Status W/U Status Risk Notes Problem 57030780 Disorder of bone, unspecified (M89.9) Active confirmed Problem 76438848 Disorder of cartilage, unspecified (M94.9) Active confirmed Problem [id number] Cellulitis of right lower extremity (L03.115) Active confirmed Plan Of Treatment No Information Insurance Providers Payer Name Payer Address Payer Phone Subscriber Number Group Number Insured Name Patient Relationship to Insured Coverage Start Date Coverage End Date MEDICARE PART B [address] [place] [address] [phone] [id number] IS[place]EL MALIN [place] Self - patient is the insured [facility] (CAP) [address] [address] [place] [phone] [id number] ISRAEL MALIN ND Self - patient is the insured
[2025-02-02 13:21] LABS: MANUAL DIFF FLAG NO
[2025-02-02 13:40] LABS: Basophils Absolute Auto 0.1 X10*3/uL (0.0-0.2); Basophils Percent Auto 1.3 % (0-2); Eosinophils Absolute Auto 0.1 X10*3/uL (0.0-0.4); Eosinophils Percent Auto 2.3 % (0-4); Hematocrit 41.8 % (42.0-52.0); Hemoglobin 13.9 g/dl (14.0-18.0); Imm Gran Abs Auto 0.01 X10*3/uL (0.00-0.03); Imm Gran Pct Auto 0.3 % (0.0-0.4); Lymphocytes Absolute Auto 1.3 X10*3/uL (1.2-4.9); Lymphocytes Percent Auto 32.3 % (20-40); Mean Corpuscular HGB Conc 33.3 g/dl (31.0-36.0); Mean Corpuscular Hemoglobin 33.3 pg (27.0-33.0); Mean Platelet Volume 10.7 fL (9.4-12.4); Monocytes Absolute Auto 0.3 X10*3/uL (0.1-1.2); Monocytes Percent Auto 6.7 % (2-11); Neutrophils Absolute Auto 2.2 x10*3/uL (2.0-8.3); Neutrophils Percent Auto 57.1 % (45-73); Platelet Count 209 X10*3/uL (160-400); Red Blood Count 4.18 X10*6/uL (4.60-5.80); White Blood Count 3.9 X10*3/uL (4.8-10.8)
[2025-02-02 13:41] LABS: Appearance Urine Clear; Color Urine Yellow; Glucose Urine UA Negative (Negative); Leukocyte Esterase Urine Negative (Negative); Nitrite Urine Negative (Negative); Urine Blood Negative (Negative); Urine Ketones Negative (Negative); Urine Protein Negative (Neg-Trace)
[2025-02-02 14:17] LABS: Alanine Aminotransferase 17 U/L (0-40); Albumin Level 4.3 g/dL (3.5-5.0); Alkaline Phosphatase 60 U/L (39-117); Anion Gap 10 (12-20); Aspartate Amino Transferase 19 U/L (5-37); Bilirubin Total 0.7 mg/dL (0.0-1.0); Blood Urea Nitrogen 10 mg/dL (9-16); Calcium 9.2 mg/dL (8.4-10.2); Carbon Dioxide 29 mmol/L (22-29); Chloride 106 mmol/L (96-108); Cholesterol 163 mg/dL (<200); Estimated Glomerular Filt Rate > 60; Glucose Fasting 88 mg/dL (60-99); HDL Cholesterol 48 mg/dL (>40); LDL Cholesterol Calculated 107 mg/dL (<100); Potassium 4.3 mmol/L (3.3-5.1); Sodium 141 mmol/L (135-145); TSH reflex Free T4 1.92 uIU/mL (0.32-4.0); Total Protein 6.4 g/dL (6.5-8.0); Triglycerides 41 mg/dL (<150)
== END 2025-02-02 11:41 | disposition home or self-care (01) ==
LOC: HO.HMGCLDS 11:40
PROVIDERS: PCP Nurse Practitioner Family; Visit Provider Nurse Practitioner Family
DX: F41.9 Anxiety disorder, unspecified (principal); Q87.2 Congenital malformation syndromes predominantly involving limbs
CPT/HCPCS: 36415; 80053; 80061; 81003; 84443; 85025

== ENCOUNTER 2025-02-04 14:03 | Outpatient (REF) | payer OTHER, SELFPAY ==
--- OUTSIDE RECORDS SUMMARY | 2025-02-04 14:14 | XMS_ITS | Patient Health Record ---
Author Organization [employer] Address [address] [place] [address] Care Team Providers Care Maintenance Services Dispatcher Name Role Phone Shavonne Hernandez Unavailable [phone] Reason For Referral No Information Problems Problem Type SNOMED Code ICD Code Onset Dates Problem Status W/U Status Risk Notes Problem [id number] Disorder of bone, unspecified (M89.9) Active confirmed Problem 31719716 Disorder of cartilage, unspecified (M94.9) Active confirmed Problem [id number] Cellulitis of right lower extremity (L03.115) Active confirmed Plan Of Treatment No Information Insurance Providers Payer Name Payer Address Payer Phone Subscriber Number Group Number Insured Name Patient Relationship to Insured Coverage Start Date Coverage End Date MEDICARE PART B [address] [place] [address] [id number] ISRAEL MALIN ND Self - patient is the insured [facility] (CAP) [address] [address] [place] [phone] [id number] ISRAEL MALIN ND Self - patient is the insured
[2025-02-04 16:02] LABS: MANUAL DIFF FLAG NO
[2025-02-04 16:07] LABS: Basophils Percent Auto 0.9 % (0-2); Eosinophils Absolute Auto 0.1 X10*3/uL (0.0-0.4); Eosinophils Percent Auto 2.3 % (0-4); Hemoglobin 13.1 g/dl (14.0-18.0); Imm Gran Abs Auto 0.01 X10*3/uL (0.00-0.03); Imm Gran Pct Auto 0.2 % (0.0-0.4); Lymphocytes Absolute Auto 1.3 X10*3/uL (1.2-4.9); Lymphocytes Percent Auto 30.2 % (20-40); Mean Corpuscular HGB Conc 33.6 g/dl (31.0-36.0); Mean Corpuscular Hemoglobin 33.5 pg (27.0-33.0); Mean Corpuscular Volume 99.7 fL (80.0-98.0); Mean Platelet Volume 10.8 fL (9.4-12.4); Monocytes Absolute Auto 0.3 X10*3/uL (0.1-1.2); Monocytes Percent Auto 7.1 % (2-11); Neutrophils Absolute Auto 2.6 x10*3/uL (2.0-8.3); Neutrophils Percent Auto 59.3 % (45-73); Platelet Count 186 X10*3/uL (160-400); Red Blood Count 3.91 X10*6/uL (4.60-5.80); White Blood Count 4.3 X10*3/uL (4.8-10.8)
[2025-02-04 16:57] LABS: Folate 7.5 ng/mL (> or = 4.0); Vitamin B12 491 pg/mL (200-900)
== END 2025-02-04 14:04 | disposition home or self-care (01) ==
LOC: HO.HMGCLDS 14:03
PROVIDERS: PCP Nurse Practitioner Family; Visit Provider Nurse Practitioner Family
DX: F10.11 Alcohol abuse, in remission (principal); D64.9 Anemia, unspecified
CPT/HCPCS: 36415; 82607; 82746; 85025

== ENCOUNTER 2025-02-23 10:54 | Outpatient (AMB) | payer OTHER, SELFPAY ==
--- NOTE | 2025-02-23 10:58 | MHC.PC.OV ---
Vital Signs 02/23/25 11:03 Height 6 ft 2 in Weight 134 lb BMI 17.2 BP 122/76 Blood Pressure Location Rt brachial Position Sitting Pulse 86 Pulse Source Pulse Oximeter Pulse Oximetry (%) 97 Oxygen Delivery Method Room Air Intake Visit Reasons: Annual PE Accompanied by: Self / Same As Patient Allergies No Known Allergies Allergy (Verified 02/23/25 11:12) Medication List - Last Reconciled 02/23/25 by HAWA Seay-BC [left above knee prosthesis wear daily for AKA] albuterol sulfate 90 mcg/actuation 1 inh inhalation QID PRN apixaban (Eliquis) 5 mg PO BID 30 days omeprazole 20 mg PO DAILY Tobacco use date assessed: 02/23/25 Dental Screening Dental Screen Date: 02/23/25 Did you have a dental visit in the last 12 months?: Yes Did you have a dental problem in the last 6 months where you did not have access to dental care?: No Was dental information given to patient?: Patient has dentist HPI Annual PE HPI Details History of Present Illness The patient is a 39-year-old male presenting with a physical exam. He denies any chest pain, shortness of breath, abdominal pain, blood in stool, constipation, diarrhea, suicidal ideation, or homicidal ideation. The patient has a history of Klippel-Trenaunay Syndrome, which has resulted in a prosthetic left lower extremity above the knee. He is vigilant about monitoring the stump for any open areas or sores, and currently, it is free from infection. He exhibits varicose vein nodularities throughout his entire right lower extremity and has a significant bunion on his right foot. The patient reports difficulty in finding a pedal pulse, particularly the dorsalis pedis, which is typical for him. The patient has moles a seborrheic keratosis on his back, with one specific flesh-colored papular lesion on his right upper back that itches. He plans to see a crisis clinician for further evaluation. He was found to be slightly anemic in recent labs and is on blood thinners for chronic deep vein thrombosis. He intends to follow up with a specialist in [place] (hem/oncology), having previously canceled due to a scheduling conflict. Health Maintenance - Follow-up with line assembly utility worker for bunion evaluation - Dermatology consultation for skin lesions Social History Review of Systems - Cardiovascular: Denies chest pain. - Respiratory: Denies shortness of breath. - Gastrointestinal: Denies abdominal pain, blood in stool, constipation, diarrhea. - Psychiatric: Denies suicidal ideation, homicidal ideation. Physical Exam General: Cooperative, healthy appearing, comfortable, no acute distress and well developed Orientation: Patient oriented x3 Limitations: No limitations Head: Normal to inspection Ears: Hearing grossly normal bilaterally Nose: Normal external nose present Face and sinus: Normal facial exam Eyes: Appearance normal, both eyes and all related structures Neck: Normal visual inspection and Yes full ROM Respiratory: Normal respiratory effort and able to speak in complete sentences. Clear to auscultation bilaterally Cardiovascular: Regular rate and rhythm. Normal S1 and S2 GI: Normal to inspection. Soft to palpation and nontender : Testicles without masses/lesions and no hernias appreciated Skin: Severe keratosis lesions to the back, with one specific flesh-colored lesion to the right upper back that itches Neuro: Patient oriented x3 Extremities: Left lower extremity with prosthetic above knee stump, free from infection. Right lower extremity with severe varicose vein nodularities throughout, significant bunion on the right foot, bluish hue to toes but warm with positive sensation and movement, absent dorsalis pedis. Left hand, with elongated thumb, claw appearance, missing middle digits Results - Labs: Slight anemia noted in recent tests. Plan The patient will undergo arterial testing for the right lower extremity due to difficulty in finding the pedal pulse, particularly the dorsalis pedis, which is typical for him. He will be referred to a line assembly utility worker for evaluation of the significant bunion on his right foot. A dermatology consultation is planned for the evaluation of moles and keratosis lesions on his back, including a specific flesh-colored lesion on his right upper back that itches. The patient will follow up with a specialist in [place] for his Klippel-Trenaunay Syndrome, having previously canceled due to a scheduling conflict. Repeat laboratory tests, including a fecal immunochemical test FIT), will be conducted to monitor his anemia and ensure no gastrointestinal bleeding, as he denies any visible blood in his urine or stool. Discussion Notes I discussed with the patient the need for arterial testing in his right lower extremity due to the difficulty in finding the pedal pulse, which is typical for him. We also talked about the referral to a line assembly utility worker for his bunion and the dermatology consultation for his skin lesions. I advised him to follow up with the specialist in [place] for his Klippel-Trenaunay Syndrome and to repeat laboratory tests to monitor his anemia. Patient Instructions - Schedule and attend arterial testing for right lower extremity. - Follow up with line assembly utility worker for bunion evaluation. - Attend dermatology consultation for skin lesions. - Contact specialist in [place] to reschedule appointment for Klippel-Trenaunay Syndrome. - Repeat laboratory tests as advised. 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 Family History Mother Cancer Family history of cancer Mental health disorder Asthma Father High blood pressure Paternal Grandfather Aneurysm Brother Migraine Vertigo Social History Household Members: Family Housing: House Alcohol intake: never Patient Tobacco Use Status: Former Tobacco user Tobacco use type: Cigar e-Cigarette/Vaping Use: Never Used Second Hand Smoke Exposure: No Substance Use Type: Marijuana service: No Current occupational status: disabled 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 1. Little interest or pleasure in doing things: not at all 2. Feeling down, depressed, or hopeless: not at all 3. Trouble falling or staying asleep, or sleeping too much: nearly every day 4. Feeling tired or having little energy: nearly every day 5. Poor appetite or overeating: not at all 6. Feeling bad about yourself - or that you are a failure or have let yourself or your family down: several days 7. Trouble concentrating on things, such as reading the newspaper or watching television: several days 8. Moving or speaking so slowly that other people could have noticed. Or the opposite - being so fidgety or restless that you have been moving around a lot more than usual: not at all 9. Thoughts that you would be better off or of hurting yourself in some way: not at all Total score: 8 Depression Screening Interpretation: Positive Depression Screening Follow-up: Existing condition and Declines treatment Depression Screening Done: Yes 16007 - PHQ-9 Billing: Yes Source: Developed by Drs. Niles Bobo, Kera Ryder, Kp Lanier and colleagues, with an educational demarcus from [employer]. Thrive Questionnaire Date Thrive assessed: 02/23/25 I am a: Patient What is your living situation today?: I choose not to answer this question Within the past 12 months, did the food you bought not last and you didn't have the money to get more?: I choose not to answer this question Within the past 12 months, did you worry whether your food would run out before you got money to buy more?: I choose not to answer this question Do you have trouble paying for medicines?: No Do you have trouble getting transportation to medical appointments?: No Do you have trouble paying your heating and electricity bill?: I choose not to answer this question Do you have trouble taking care of your child, family member or friend?: I choose not to answer this question Do you have trouble with day-to-day activities such as bathing, preparing meals, shopping, managing finances, etc.?: No Are you currently unemployed and looking for a job?: I choose not to answer this question Are you interested in more education?: I choose not to answer this question Please select the resources that you would like help with: None Currently or been in a relationship where the following occur: No concerns reported THRIVE Score: 0 AUDIT C Alcohol Use Questionnaire (AUDIT-C) 1. How often do you have a drink containing alcohol?: Never 3. How often do you have six or more drinks on one occasion?: Never Total Score: 0 Score Reviewed/Action Taken: Yes ELICEO-7 AMB Questionnaire ELICEO-7 Date ELICEO - 7 assessed: 02/23/25 Feeling nervous, anxious, or on edge: 1 = Several days Not being able to stop or control worryin = Several days Worrying too much about different things: 1 = Several days Trouble relaxin = Several days Being so restless that it is hard to sit still: 3 = Nearly every day Becoming easily annoyed or irritable: 1 = Several days Feeling afraid as if something awful might happen: 0 = Not at all Total ELICEO-7 score (0-4 normal; 5-9 mild; 10-14 moderate; 15-21 severe): 8 Source: Developed by Drs. Niles Bobo, Kera Ryder, Kp Lanier and colleagues, with an educational demarcus from [employer]. ELICEO-7 Assessment Billing ELICEO-7 Assessment Tool: ELICEO-7 Assessment 74929 Physical exam (Primary Care) Vital Signs: Last Vital Signs Pulse 86 02/23/25 11:03 BP 122/76 02/23/25 11:03 Pulse Ox 97 02/23/25 11:03 Oxygen Delivery Method Room Air 02/23/25 11:03 BMI result Body Mass Index 17.2 Tobacco/Smoking Status: Tobacco use Status Tobacco use date assessed 02/23/25 02/23/25 11:15 Patient Tobacco Use Status Former Tobacco user 02/23/25 10:58 Tobacco use type Cigar 02/23/25 10:58 e-Cigarette/Vaping Use Never Used 02/23/25 10:58 PHQ-9: PHQ-9 Score PHQ-9: Total score 8 02/23/25 11:15 Depression Screening Interpretation: Positive Depression Screening Follow-up: Existing condition and Declines treatment Thrive Assessment: Date of Thrive Assessment Date Thrive assessed 02/23/25 02/23/25 11:15 Currently or been in a relationship where the following occur: No concerns reported Coding Level of Care Code Est Pt Prev Care 40-64y(15617) Diagnoses Anemia D64.9 Klippel Trenaunay syndrome Q87.2 Absence of right dorsalis pedis artery pulse R09.89 Bunion of great toe of right foot M21.611 Encounter for routine adult physical exam with abnormal findings Z00.01 Additional Codes ELICEO-7 Assessment Billing - ELICEO-7 Assessment Tool: ELICEO-7 Assessment 13673 ([id number]) PHQ-9 - 98004 - PHQ-9 Billing: Yes ([id number]) Assessment & Plan Assessment & Plan (1) Anemia: Code(s): D64.9 - Anemia, unspecified Category: Medical (2) 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 Category: Medical (3) Absence of right dorsalis pedis artery pulse: Code(s): R09.89 - Other specified symptoms and signs involving the circulatory and respiratory systems Category: Medical Plan: . (4) Bunion of great toe of right foot: Code(s): M21.611 - Bunion of right foot Category: Medical (5) Encounter for routine adult physical exam with abnormal findings: Code(s): Z00.01 - Encounter for general adult medical examination with abnormal findings Category: Medical Plan . Orders: Orders FITS Today D64.9 - Anemia, unspecified US arterial duplex LE RT Today Q87.2 - Congenital malformation syndromes predominantly involving limbs, R09.89 - Other specified symptoms and signs involving the circulatory and respiratory systems Vitamin B12 and Folate Today D64.9 - Anemia, unspecified Referrals Podiatry Referral M21.611 - Bunion of right foot
[2025-02-23 11:03] VITALS: BP 122/76; PULSE 86; O2SAT 97; BMI 17.2
--- OUTSIDE RECORDS SUMMARY | 2025-02-23 12:25 | XMS_ITS | Patient Health Record ---
Author Organization [employer] Address [address] [place] [address] Care Team Providers Care Manager Software Name Role Phone Shavonne Hernandez Unavailable [phone] Reason For Referral No Information Problems Problem Type SNOMED Code ICD Code Onset Dates Problem Status W/U Status Risk Notes Problem 61939903 Disorder of bone, unspecified (M89.9) Active confirmed Problem 13681868 Disorder of cartilage, unspecified (M94.9) Active confirmed Problem [id number] Cellulitis of right lower extremity (L03.115) Active confirmed Plan Of Treatment No Information Insurance Providers Payer Name Payer Address Payer Phone Subscriber Number Group Number Insured Name Patient Relationship to Insured Coverage Start Date Coverage End Date MEDICARE PART B [address] [place] [address] [phone] [id number] ISRAEL MALIN ND Self - patient is the insured [facility] (CAP) [address] [address] [place] [phone] [id number] ISRAEL MALIN ND Self - patient is the insured
== END 2025-02-23 15:03 | disposition home or self-care (01) ==
LOC: HO.HMCC 10:54
PROVIDERS: PCP Nurse Practitioner Family; Visit Provider Nurse Practitioner Family
DX: D64.9 Anemia, unspecified (principal); Q87.2 Congenital malformation syndromes predominantly involving limbs; R09.89 Other specified symptoms and signs involving the circulatory and respiratory systems; M21.611 Bunion of right foot; Z00.01 Encounter for general adult medical examination with abnormal findings

== ENCOUNTER → 2025-02-23 10:54 | Outpatient (BNVA) | payer OTHER, SELFPAY | PROVIDERS: PCP Nurse Practitioner Family; Visit Provider Nurse Practitioner Family | DX: Z00.01 Encounter for general adult medical examination with abnormal findings (principal); Q87.2 Congenital malformation syndromes predominantly involving limbs; M21.611 Bunion of right foot; I83.91 Asymptomatic varicose veins of right lower extremity; D22.5 Melanocytic nevi of trunk; D64.9 Anemia, unspecified; R09.89 Other specified symptoms and signs involving the circulatory and respiratory systems; Z89.612 Acquired absence of left leg above knee | CPT/HCPCS: 96127; 99396 ==

== ENCOUNTER 2025-02-25 11:20 | Outpatient (REF) | payer OTHER, SELFPAY ==
--- OUTSIDE RECORDS SUMMARY | 2025-02-25 12:50 | XMS_ITS | Patient Health Record ---
Author Organization [employer] Address [address] [place] [address] Care Team Providers Care Patient Support Associate Name Role Phone Shavonne Hernandez Unavailable [phone] Reason For Referral No Information Problems Problem Type SNOMED Code ICD Code Onset Dates Problem Status W/U Status Risk Notes Problem 04006050 Disorder of bone, unspecified (M89.9) Active confirmed Problem 97894292 Disorder of cartilage, unspecified (M94.9) Active confirmed Problem [id number] Cellulitis of right lower extremity (L03.115) Active confirmed Plan Of Treatment No Information Insurance Providers Payer Name Payer Address Payer Phone Subscriber Number Group Number Insured Name Patient Relationship to Insured Coverage Start Date Coverage End Date MEDICARE PART B [address] [place] [address] [id number] ISRAEL MALIN ND Self - patient is the insured [facility] (CAP) [address] [address] [place] [phone] [id number] ISRAEL MALIN ND Self - patient is the insured
[2025-02-25 13:02] LABS: MANUAL DIFF FLAG NO
[2025-02-25 13:06] LABS: Basophils Absolute Auto 0.1 X10*3/uL (0.0-0.2); Basophils Percent Auto 1.1 % (0-2); Eosinophils Absolute Auto 0.1 X10*3/uL (0.0-0.4); Eosinophils Percent Auto 2.2 % (0-4); Hematocrit 42.1 % (42.0-52.0); Hemoglobin 13.8 g/dl (14.0-18.0); Imm Gran Abs Auto 0.01 X10*3/uL (0.00-0.03); Imm Gran Pct Auto 0.2 % (0.0-0.4); Immature Retic Fraction 10.8 % (2.3-13.4); Lymphocytes Absolute Auto 1.4 X10*3/uL (1.2-4.9); Lymphocytes Percent Auto 30.7 % (20-40); Mean Corpuscular HGB Conc 32.8 g/dl (31.0-36.0); Mean Corpuscular Hemoglobin 32.3 pg (27.0-33.0); Mean Corpuscular Volume 98.6 fL (80.0-98.0); Monocytes Absolute Auto 0.3 X10*3/uL (0.1-1.2); Monocytes Percent Auto 6.2 % (2-11); Neutrophils Absolute Auto 2.7 x10*3/uL (2.0-8.3); Neutrophils Percent Auto 59.6 % (45-73); Platelet Count 185 X10*3/uL (160-400); Red Blood Count 4.27 X10*6/uL (4.60-5.80); Red Cell Distribution Width 12.4 % (11.0-16.0); Retic HGB Equivalent 35.8 pg (30.0-35.0); Reticulocyte Percent 1.4 % (0.5-1.8); White Blood Count 4.5 X10*3/uL (4.8-10.8)
[2025-02-25 13:31] LABS: FIT Int Ctl YES; FIT1 NEGATIVE (NEGATIVE); FIT2 NEGATIVE (NEGATIVE)
[2025-02-25 13:50] LABS: Alanine Aminotransferase 20 U/L (0-40); Albumin Level 4.2 g/dL (3.5-5.0); Alkaline Phosphatase 55 U/L (39-117); Anion Gap 11 (12-20); Aspartate Amino Transferase 21 U/L (5-37); Bilirubin Total 0.7 mg/dL (0.0-1.0); Blood Urea Nitrogen 14 mg/dL (9-16); Calcium 8.9 mg/dL (8.4-10.2); Carbon Dioxide 26 mmol/L (22-29); Chloride 107 mmol/L (96-108); Estimated Glomerular Filt Rate > 60; Ferritin 148 ng/mL (20-250); Glucose Random 76 mg/dL (60-115); Iron 88 mcg/dL (45-160); Lactate Dehydrogenase 169 U/L (118-273); Percent Iron Saturation 37 % (15-50); Potassium 4.4 mmol/L (3.3-5.1); Sodium 140 mmol/L (135-145); Total Iron Binding Capacity 236 mcg/dL (228-428); Total Protein 6.3 g/dL (6.5-8.0); Unsaturated Iron Binding 148 ug/dL
[2025-02-25 14:00] LABS: Folate 5.3 ng/mL (> or = 4.0); Vitamin B12 498 pg/mL (200-900)
== END 2025-02-25 11:21 | disposition home or self-care (01) ==
LOC: HO.HMGCLDS 11:20
PROVIDERS: PCP Nurse Practitioner Family; Visit Provider Nurse Practitioner Family
DX: D64.9 Anemia, unspecified (principal)
CPT/HCPCS: 36415; 80053; 82274; 82607; 82728; 82746; 83540; 83615; 85025; 85045

== ENCOUNTER 2025-04-05 12:19 | Outpatient (REF) | payer OTHER, SELFPAY ==
--- NOTE | ~2025-04-05 | US_ITS ---
EXAMINATION: Noninvasive assessment of the right lower extremity without ARTERIAL DUPLEX, ANKLE BRACHIAL INDICES (ABIs), and PULSE VOLUME RECORDINGS (PVRs). CLINICAL INFORMATION: Congenital malformation syndromes involving limbs. TECHNIQUE: Duplex Doppler techniques with waveform analysis and measurement of velocities in the right common femoral, profunda femoris, superficial femoral, popliteal and tibial arteries were performed. The study was performed only at rest. COMPARISON: None FINDINGS: DIRECT DUPLEX DOPPLER FINDINGS: RIGHT LEG: Common femoral artery: 86 cm/s, phasicity: Triphasic. Profunda femoris artery: 82 cm/s, phasicity: Triphasic. Superficial femoral artery (proximal): 102 cm/s, phasicity: Triphasic. Superficial femoral artery (mid): 142 cm/s, phasicity: Triphasic. Superficial femoral artery (distal): 94 cm/s, phasicity: Triphasic. Popliteal artery: 91 cm/s, phasicity: Triphasic. Posterior tibial artery: 107 cm/s, phasicity: Triphasic. Peroneal artery: 79 cm/s, phasicity: Triphasic. Anterior tibial artery: 41 cm/s, phasicity: Monophasic. Dorsalis pedis artery: 32 cm/s, phasicity:Monophasic. US/US arterial duplex LE RT IMPRESSION: Right leg: Severe inflow disease, anterior tibialis and dorsalis pedis arteries. Electronically signed by: Macario Gonzalez MD 04/05/2025 01:55 PM EDT
--- OUTSIDE RECORDS SUMMARY | 2025-04-05 13:14 | XMS_ITS | Clinical Summary ---
Author Organization 175 [facility] Address [address] [place] [address] Phone Care Team Providers Care Audio/Visual Operator Name Role Phone Kodi Vega NP Primary Care Provider [phone] Social History Tobacco Use Types Packs/Day Years Used Date Smoking Tobacco: Never Assessed Sex and Gender Information Value Date Recorded Sex Assigned at Not on file Legal Sex Male 11:07 AM EDT Gender Identity Not on file Sexual Orientation Not on file Plan of Treatment Upcoming Encounters Date Type Department Care Team ([facility] Contact Info) Description 04/26/2025 1:15 PM EDT Consult Orthopedic Surgery - [place] [address] [phone] Hector Walter, DPEren [address] [address] Health Maintenance Due Date Last Done Comments DTaP,Tdap,and Td Vaccines (1 - Tdap) 11/09/2003 Hepatitis B Vaccines (1 of 3 - 19+ 3-dose series) 11/09/2003 Cholesterol Screening (Lipid Panel) 04/10/2024 HIV Screening 04/10/2024 Hepatitis C Screening 04/10/2024 Social Influencers of Health Screening 04/10/2024 COVID-19 Vaccine (1 - 2023-2 5 season) 2024 Depression Screening 09/09/2024 Influenza Vaccine (#1) 2025 HIB Vaccines Aged Out No longer eligi ble based on patient's age to complete this topic HPV Vaccines Aged Out No longer eligi ble based on patient's age to complete this topic Hepatitis A Vaccines Aged Out No long er eligible based on patient's age to complete this topic IPV Vaccines Aged Out No longer eligi ble based on patient's age to complete this topic MMR Vaccines Aged Out No longer eligi ble based on patient's age to complete this topic Meningococcal ACWY Vaccine Aged Out N o longer eligible based on patient's age to complete this topic Meningococcal B Vaccine Aged Out No l onger eligible based on patient's age to complete this topic Pneumococcal Vaccine: Pediat rics (0 to 5 Years) and At-Risk Patients (6 to 49 Years) Aged Out No longer eligible b ased on patient's age to complete this topic RSV Immunization Patients Un betsy 20 months Aged Out No longer eligible b ased on patient's age to complete this topic Varicella Vaccines Aged Out No longer eligible based on patient's age to complete this topic [facility] [employer] PL[employer] MEDICAID - [place] Care Teams Audio/Visual Operator Relationship Specialty Start Date End Date Kodi Vega NP [address] [place], [place] PCP - General Family Medicine 02/25/25
--- OUTSIDE RECORDS SUMMARY | 2025-04-05 13:14 | XMS_ITS | Patient Health Record ---
Author Organization [facility] Address [address] [place] [address] Care Team Providers Care Order Planner Name Role Phone Shavonne Hernandez Unavailable [phone] Reason For Referral No Information Problems Problem Type SNOMED Code ICD Code Onset Dates Problem Status W/U Status Risk Notes Problem Disorder of bone (06688574) Disorder of bone, unspecified (M89.9) Active confirmed Problem Disorder of cartilage (12694896) Disorder of cartilage, unspecified (M94.9) Active confirmed Problem Cellulitis of right lower limb ([id number] 104) Cellulitis of right lower extremity (L03.115) Active confirmed Plan Of Treatment No Information Insurance Providers Payer Name Payer Address Payer Phone Subscriber Number Group Number Insured Name Patient Relationship to Insured Coverage Start Date Coverage End Date MEDICARE PART B [address] [place] [address] [id number] ISRAEL MALIN [place] Self - patient is the insured [facility] (CAP) [address] [address] [place] [address] [id number] ISRAEL MALIN [place] Self - patient is the insured
== END 2025-04-05 12:20 | disposition home or self-care (01) ==
LOC: HO.US 12:19
PROVIDERS: PCP Nurse Practitioner Family; Visit Provider Nurse Practitioner Family
DX: Q87.2 Congenital malformation syndromes predominantly involving limbs (principal); R09.89 Other specified symptoms and signs involving the circulatory and respiratory systems
CPT/HCPCS: 93926

== ENCOUNTER → 2025-04-05 12:21 | Outpatient (BNV) | payer OTHER, SELFPAY | PROVIDERS: PCP Nurse Practitioner Family; Visit Provider Radiology Diagnostic Radiology | DX: I70.211 Atherosclerosis of native arteries of extremities with intermittent claudication, right leg (principal) | CPT/HCPCS: 93926 ==

== ENCOUNTER 2025-04-30 16:40 | Outpatient (AMB) | payer OTHER, SELFPAY ==
[2025-04-30 16:42] VITALS: BP 102/64; PULSE 108; TEMP 36.7; O2SAT 96
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
--- OUTSIDE RECORDS SUMMARY | 2025-04-30 16:42 | XMS_ITS | Patient Health Record ---
Author Organization [facility] Address [address] [place] [address] Care Team Providers Care Tree Climber Name Role Phone Shavonne Hernandez Unavailable [phone] Reason For Referral No Information Problems Problem Type SNOMED Code ICD Code Onset Dates Problem Status W/U Status Risk Notes Problem Disorder of bone, unspecified (M89.9) Active confirmed Problem Disorder of cartilage (10507463) Disorder of cartilage, unspecified (M94.9) Active confirmed Problem Cellulitis of right lower limb ([id number] 104) Cellulitis of right lower extremity (L03.115) Active confirmed Plan Of Treatment No Information Insurance Providers Payer Name Payer Address Payer Phone Subscriber Number Group Number Insured Name Patient Relationship to Insured Coverage Start Date Coverage End Date MEDICARE PART B [address] [place] [address] [id number] ISRAEL MALIN ND Self - patient is the insured [facility] (CAP) [address] [address] [place] [phone] [id number] ISRAEL MALIN ND Self - patient is the insured
== END 2025-04-30 16:54 | disposition home or self-care (01) ==
PROVIDERS: PCP Nurse Practitioner Family; Visit Provider Physician Assistant Medical
DX: S05.01XA Injury of conjunctiva and corneal abrasion without foreign body, right eye, initial encounter (principal)

== ENCOUNTER → 2025-04-30 16:40 | Outpatient (BNVA) | payer OTHER, SELFPAY | PROVIDERS: PCP Nurse Practitioner Family; Visit Provider Physician Assistant Medical | DX: S05.01XA Injury of conjunctiva and corneal abrasion without foreign body, right eye, initial encounter (principal); W20.8XXA Other cause of strike by thrown, projected or falling object, initial encounter; Y93.9 Activity, unspecified; Y92.9 Unspecified place or not applicable; Y99.9 Unspecified external cause status | CPT/HCPCS: 99212 ==

== ENCOUNTER 2025-05-13 13:53 | Outpatient (AMB) | payer OTHER, SELFPAY ==
[2025-05-13 13:53] VITALS: BMI 17.3
--- NOTE | 2025-05-13 13:53 | MHC.OFFVIS ---
Vital Signs 05/13/25 13:53 Height 6 ft 2 in Weight 135 lb BMI 17.3 Intake Visit Reasons: PRN follow up s/p Arterial US 04/05/25 Intake Note: Follow up per PCP s/p Arterial US 04/05/25. Pt also getting bunion surgery by at [facility]. Accompanied by: Self / Same As Patient Allergies No Known Allergies Allergy (Verified 05/13/25 14:03) HPI HPI PRN follow up s/p Arterial US 04/05/25: Details: Very pleasant 37-year-old female presents for follow-up evaluation regarding his right lower extremity. 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 At the current time he is doing fairly well. He does have significant varicosities of the right lower extremity. At the current time he is concerned about his foot and bunion. He had undergone noninvasive testing by his primary care doctor and is now for vascular evaluation. 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 Family History Mother Cancer Family history of cancer Mental health disorder Asthma Father High blood pressure Paternal Grandfather Aneurysm Brother Migraine Vertigo Social History Household Members: Family Housing: House Alcohol intake: never Patient Tobacco Use Status: Former Tobacco user Tobacco use type: Cigar e-Cigarette/Vaping Use: Never Used Second Hand Smoke Exposure: No Substance Use Type: Marijuana service: No Current occupational status: disabled 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, 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 Gender identity: Male Cognitive needs: No Hearing needs: No Vision needs: No Review of Systems Const All systems reviewed & are unremarkable except as noted in HPI and below Reports no additional complaints ENT Reports Normal hearing present Card Denies chest pain, Denies chest pain at rest, Denies chest pain with activity and Denies pedal edema Resp Denies cough GI Denies abdominal pain Musc Denies abnormal gait, Denies muscle cramps and Denies radiating pain into limb Skin/Breast Denies skin ulcer and Denies wounds Neuro Reports Normal hearing present and Denies abnormal gait Psych Reports no additional complaints Physical Exam Vital Signs: BMI result Body Mass Index 17.3 Const General: cooperative, healthy appearing and comfortable Orientation/consciousness: oriented to person, oriented to place and oriented to time HEENT Head: Yes normal to inspection Neck Neck: Yes normal visual inspection Carotids: no bruits Chest Chest palpation & inspection: normal inspection of the chest Resp Effort & Inspection: normal respiratory effort and able to speak in complete sentences Auscultation: clear to auscultation bilaterally, no crackles, no rales, no rhonchi and no wheezes Cardio Other: Right leg palpable dorsalis pedis pulse Rate: regular rate Rhythm: regular rhythm Heart sounds: S1 normal heart sound present and S2 normal heart sound present Bruits: no carotid bruits Peripheral pulses: Peripheral pulses 2+ throughout GI Inspection: Yes normal to inspection Skin Wounds: no wounds and amputation site (Left amp well healed) Hair: normal Neuro General: oriented to person, oriented to place and oriented to time Cranial nerves: Yes CN's II-XII intact bilaterally and Yes Normal hearing present Cognition (Neuro): normal cognition Motor exam (neuro): 5/5 motor strength present throughout Extrem Other: venous exam: No significant superficial varicosities or spider telangiectasias, minimal edema General: No clubbing, No cyanosis and No edema Psych Appearance: grossly normal Mental Status: mental status grossly normal Speech and movement: Normal speech and movement present Results Reviewed Results Reviewed: Noninvasive testing from 04/05/2025 was reviewed Assessment & Plan Assessment & Plan (1) PAD (peripheral artery disease): Code(s): I73.9 - Peripheral vascular disease, unspecified Category: Medical Plan: In short patient has stable arterial status. I was able to appreciate a palpable pulse. The patient does have triphasic down to the peroneal artery although of the anterior tibial and dorsalis pedis may be monophasic he does have a palpable pulse. I do think he is stable from a vascular standpoint to undergo any podiatric intervention. He will follow up with us on an as-needed basis. Thank you for allowing us to assist in his care. Coding Level of Care Code Est Pt Level 4 (74805) Diagnoses PAD (peripheral artery disease) I73.9
--- OUTSIDE RECORDS SUMMARY | 2025-05-13 15:08 | XMS_ITS | Clinical Summary ---
Author Organization 175 [facility] Address [address] [place] [address] Phone Care Team Providers Care Graphic Design Specialist Name Role Phone DavevanessaKodi NP Primary Care Provider [phone] Allergies No known active allergies Medications amoxicillin (AMOXIL) 500 mg tablet TAKE 1 TABLET BT MOUTH 3 TIMES A DAY FOR 7 DAYS 10/30/2024 Active Eliquis 5 mg tablet Take 1 tablet (5 mg total) by mouth 2 (two) times a day. 04/12/2025 Active busPIRone (BUSPAR) 5 mg tablet Take 1 tablet (5 mg total) by mouth 2 (two) times a day. 07/30/2024 Active omeprazole (PriLOSEC) [address] capsule Take 1 capsule (20 mg total) by mouth 1 (one) time each day. 03/24/2025 Active sertraline (ZOLOFT) 25 mg tablet Take 1 tablet (25 mg total) by mouth 1 (one) time each day. 08/04/2024 Active sertraline (ZOLOFT) 50 mg tablet Take 1 tablet (50 mg total) by mouth 1 (one) time each day. 09/24/2024 Active Encounters Date Type Department Care Team Description 04/26/2025 1:15 PM EDT Consult Orthopedic Surgery [facility] [address] [address] Hector Walter, HUMBERTO Pain in right foot (Primary Dx); Bunion of right foot; Arthritis of first metatarsophalangeal (MTP) joint of right foot; Hammertoe of right foot from Last 3 Months Social History Tobacco Use Types Packs/Day Years Used Date Smoking Tobacco: Never Assessed Sex and Gender Information Value Date Recorded Sex Assigned at Not on file Legal Sex Male 11:07 AM EDT Gender Identity Not on file Sexual Orientation Not on file Plan of Treatment Health Maintenance Due Date Last Done Comments DTaP,Tdap,and Td Vaccines (1 - Tdap) 11/09/2003 Hepatitis B Vaccines (1 of 3 - 19+ 3-dose series) 11/09/2003 Cholesterol Screening (Lipid Panel) 04/10/2024 HIV Screening 04/10/2024 Hepatitis C Screening 04/10/2024 Social Influencers of Health Screening 04/10/2024 Depression Screening 09/09/2024 COVID-19 Vaccine (1 - 2023-2 5 season) 2025 Influenza Vaccine (#1) 2025 HIB Vaccines Aged [...] patient's age to complete this topic Insurance [facility] MEDICAID - [place] Care Teams Graphic Design Specialist Relationship Specialty Start Date End Date Kodi Vega NP [address] [place], [place] PCP - General Family Medicine 02/25/25
--- OUTSIDE RECORDS SUMMARY | 2025-05-13 15:09 | XMS_ITS | Patient Health Record ---
Author Organization [facility] Address [address] [place] [address] Care Team Providers Care Senior Data Mining Analyst Name Role Phone Shavonne Hernandez Unavailable [phone] Reason For Referral No Information Problems Problem Type SNOMED Code ICD Code Onset Dates Problem Status W/U Status Risk Notes Problem Disorder of bone (73643527) Disorder of bone, unspecified (M89.9) Active confirmed Problem Disorder of cartilage (73258681) Disorder of cartilage, unspecified (M94.9) Active confirmed Problem Cellulitis of right lower limb ([id number] 104) Cellulitis of right lower extremity (L03.115) Active confirmed Plan Of Treatment No Information Insurance Providers Payer Name Payer Address Payer Phone Subscriber Number Group Number Insured Name Patient Relationship to Insured Coverage Start Date Coverage End Date MEDICARE PART B [address] [place] [address] [id number] ISRAEL MALIN ND Self - patient is the insured [facility] (CAP) [address] [address] [place] [address] [id number] ISRAEL MALIN ND Self - patient is the insured
== END 2025-05-13 14:33 | disposition home or self-care (01) ==
LOC: HO.HVS 13:54
PROVIDERS: PCP Nurse Practitioner Family; Visit Provider Surgery Vascular Surgery
DX: I73.9 Peripheral vascular disease, unspecified (principal)
CPT/HCPCS: 99214

== ENCOUNTER → 2025-05-13 13:53 | Outpatient (BNVA) | payer OTHER, SELFPAY | PROVIDERS: PCP Nurse Practitioner Family; Visit Provider Surgery Vascular Surgery | DX: I73.9 Peripheral vascular disease, unspecified (principal) | CPT/HCPCS: 99212 ==